=== PATIENT | male | born 1940 | race Caucasian/White ===

== ENCOUNTER 2016-12-20 08:44 | Day surgery (SDC) | payer MEDICARE, OTHER ==
[~2016-12-20 08:44] MED LIST: Lactated Ringers 1,000 ML IV SCH; Lidocaine 1%/Sod Bicarbonate in NS 8.4% 1 ML Syringe IV PRN; Sodium Chloride 0.9% 10 ML Syringe FLUSH PRN
[2016-12-20] MEDS ORDERED: Lidocaine 1% with EPINEPHrine 1:100,000 20 ML MDV ONE (08:59)
--- NOTE | 2016-12-20 09:26 | PCM.PREANE ---
Preanesthetic Assessment - ANESTHESIA/TRANSFUSION/FAMILY HX Anesthesia/Transfusion History: No Prior Transfusion(s), Prior Anesthesia (EGD' s and Colonoscopies, pt. 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: Reports: no symptoms (Bone pain from metastatic prostate cancer noted.), stroke/TIA (in 2014.), weakness Respiratory: Reports: no symptoms (quit smoking in 1965) Cardiovascular: Reports: blood pressure problem GI: Reports: no symptoms (GERD with hiatal hernia noted.), difficulty swallowing Other: Reports: easy bleeding (Patient on Xarelto for history of pulmonary emboli/DVT.), easy bruising - PHYSICAL ASSESSMENT HR: 64 O2 Sat by Pulse Oximetry: 98 RR: 16 BP: 174/82 Temp: 36.4 C Vital Signs: Last Vital Signs Temp 36.4 C 12/20/16 08:50 Pulse 64 12/20/16 08:50 Resp 16 12/20/16 08:50 BP 174/82 H 12/20/16 08:50 Pulse Ox 98 12/20/16 08:50 Height: 1.8 m Weight: 85.275 kg NPO Status Date: 12/19/16 NPO Status Time: 22:00 ASA Class: 3 Mental Status: alert & oriented x3 Airway Class: Mallampati = 2 Dentition: Reports: normal dentition, caries Thyro-Mental Finger Breadths: 3 Mouth Opening Finger Breadths: 3 ROM/Head Extension: full Respiratory Status: lungs clear to auscultation bilaterally Cardiovascular Status: regular rate & rhythm, normal S1, S2, no murmur, blood pressure WNL - LAB Values: Reviewed and noted. - IMAGING/EKG Impressions: EKG: SR rate=70, Probable left atrial enlargement - ALLERGIES Allergies/Adverse Reactions: Allergies Allergy/AdvReac Type Severity Reaction Status Date / Time metoprolol Allergy Anxiety Verified 12/17/16 10:04 rosuvastatin [From Crestor] Allergy Anxiety Verified 12/17/16 10:04 [id number] Reductase Allergy Leg Cramps Verified 12/17/16 10:04 Inhibitor - ANESTHESIA PLAN Preop Beta Nohemi: No Anesthesia Type Planned: MAC - ACKNOWLEDGEMENTS Pt an appropriate candidate for the planned anesthesia: Yes Alternatives and risks of anesthesia discussed w pt/guardian: Yes Pt/Guardian understands and agree with anesthesia plan: Yes PreAnesthesia Questionnaire - Past Health History Medical/Surgical History: Denies Medical/Surgical History HEENT History: Reports: None Cardiovascular History: Reports: High cholesterol, Hypertension Respiratory History: Reports: PE Gastrointestinal History: Reports: Hiatal hernia Other Gastrointestinal History: intestinal polyp, intestinal metaplasia of gastric mucosa, schatzkis ring Genitourinary History: Reports: Prostate disorder 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 Musculoskeletal History: Reports: Osteoarthritis, Other (see below) Other Musculoskeletal History: L shoulder osteoarthritis, restless leg syndrome Neurological History: Reports: TIA Psychiatric History: Reports: None Endocrine/Metabolic History: Reports: None Hematologic History: Reports: None Immunologic History: Reports: None Oncologic (Cancer) History: Reports: Prostate Dermatologic History: Reports: Melanoma - Past Surgical History GI Surgical History: Reports: Colonoscopy, EGD - SUBSTANCE USE Smoking Status *Q: Former Smoker Tobacco Use Within Last Twelve Months: No Second Hand Smoke Exposure: Yes Recreational Drug Use History: No - HOME MEDS Home Medications: Home Meds Pramipexole Di-HCl [Mirapex] 0.75 mg PO QPM 12/26/15 [History] Ranitidine [Zantac] 150 mg PO DAILY 12/26/15 [History] Rivaroxaban [Xarelto] 15 mg PO BID 21 Days 12/28/15 [Rx] traMADol HCl [Tramadol HCl] 50 mg PO Q6H PRN #15 tablet 12/28/15 [Rx] Losartan [Cozaar] 1 tab PO DAILY 12/10/16 [History] Sennosides/Docusate Sodium [Senna-Docusate Sodium] 1 tab PO DAILY 12/10/16 [ History] - CURRENT (IN HOUSE) MEDS Current Meds: Current Medications Lactated Ringer's (Ringers, Lactated) 1,000 mls @ 125 mls/hr IV ASDIRECTED CHRISTINA Stop: 12/20/16 23:00 Last Admin: 12/20/16 09:00 Dose: 125 mls/hr Lidocaine/Sodium Bicarbonate (Buffered Lidocaine 1% In Ns 8.4%) 0.25 ml IV ONETIME PRN PRN Reason: Prior to IV Start Stop: 12/20/16 18:00 Last Admin: 12/20/16 08:59 Dose: 0.25 ml Sodium Chloride (Saline Flush) 10 ml FLUSH ASDIRECTED PRN PRN Reason: Keep Vein Open Stop: 12/20/16 18:00 Discontinued Medications Lidocaine/Epinephrine (Xylocaine 1% With Epinephrine 1:100,000) Confirm Administered Dose 20 ml .ROUTE .[facility] Stop: 12/20/16 09:00
[2016-12-20] MEDS ORDERED: fentaNYL 100 MCG/2 ML SDV ONE (09:30)
[2016-12-20] MEDS ORDERED: Propofol 200 MG/20 ML SDV ONE (09:30)
[2016-12-20] MEDS ORDERED: Lidocaine 1% 2 ML SDV ONE (09:30)
--- NOTE | 2016-12-20 10:19 | PCM.OPNOTE ---
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
--- NOTE | 2016-12-20 10:29 | PCM48HPAN ---
Post Anesthesia Note - EVALUATION WITHIN 48HRS OF ANESTHETIC Vital Signs in Normal Range: Yes Patient Participated in Evaluation: Yes Respiratory Function Stable: Yes Airway Patent: Yes Cardiovascular Function Stable: Yes Hydration Status Stable: Yes Pain Control Satisfactory: Yes Nausea and Vomiting Control Satisfactory: Yes Mental Status Recovered: Yes
[2016-12-20 10:58] VITALS: BP 148/51
--- NOTE | 2016-12-21 08:20 | OR ---
DATE OF OPERATION: 12/20/2016 SURGEON: Jacob Chun MD PREOPERATIVE DIAGNOSIS: Melanoma in situ, left neck. POSTOPERATIVE DIAGNOSIS: Melanoma in situ, left neck. POPERAITON PERFORMED: Excision with 1 cm margin done under IV sedation local anesthetic. DESCRIPTION OF PROCEDURE: The patient was taken to the operating room, placed in a supine position, connected to monitoring equipment, given IV sedation. The patient placed with a roll under the left shoulder to expose the posterior portion of the left neck area in question have not been marked was identified and prepped with Betadine, draped off in a sterile fashion. Using a marking pen and a ruler a 1 cm margin around the lesion was then traced and the area was anesthetized with 1% Xylocaine and then excised. Excision was carried through the skin into the subcuticular tissue. The subcuticular tissue was then closed with interrupted of 3-0 Vicryl suture and the skin with interrupted 4-0 Prolene suture. Sterile dressing placed. The patient tolerated the procedure and sent to recovery room in a stable condition. ANESTHESIA: ESTIMATED BLOOD LOSS: MMODAL /[id number]
--- NOTE | 2016-12-21 09:01 | OR ---
DATE OF OPERATION: 12/20/2016 SURGEON: Jacob Chun MD ADDENDUM: ESTIMATED BLOOD LOSS: Zero mL. MMODAL /[id number]
== END 2016-12-20 11:25 | disposition home or self-care (01) ==
LOC: JD.SDS 08:44
PROVIDERS: ATTEND Surgery
PROC: 0HB4XZZ Excision of Neck Skin, External Approach (ICD-10-PCS; principal; 2016-12-20)
DX: D03.4 Melanoma in situ of scalp and neck (principal); I10 Essential (primary) hypertension; E78.5 Hyperlipidemia, unspecified; M19.012 Primary osteoarthritis, left shoulder; G25.81 Restless legs syndrome; Z85.46 Personal history of malignant neoplasm of prostate; Z85.830 Personal history of malignant neoplasm of bone; Z86.73 Personal history of transient ischemic attack (TIA), and cerebral infarction without residual deficits; Z87.891 Personal history of nicotine dependence; Z88.8 Allergy status to other drugs, medicaments and biological substances; Z79.01 Long term (current) use of anticoagulants; Z79.899 Other long term (current) drug therapy; Z98.890 Other specified postprocedural states
CPT/HCPCS: 11621; 88307; J3010; J7120; 00300; J2704

== ENCOUNTER 2017-05-11 18:34 | Inpatient (IN) | payer MEDICARE, OTHER ==
[2017-05-11] MEDS ORDERED: Sodium Chloride 0.9% 10 ML Syringe FLUSH PRN ×2 (19:00→19:07)
[2017-05-11] MEDS ORDERED: Iopamidol 755 Mg/ML 100 ML Bottle IVPUSH ONE (19:07)
[2017-05-11] MEDS ORDERED: Iopamidol 755 MG/ML 50 ML Bottle IVPUSH ONE (19:07)
--- NOTE | 2017-05-11 19:08 | EDM.PDOC ---
ED HPI GENERAL MEDICAL PROBLEM - General Chief Complaint: Abdominal Pain Stated Complaint: ABDOMINAL PAIN Time Seen by Provider: 05/11/17 18:45 Source of Information: Reports: Patient History Limitations: Reports: No Limitations - History of Present Illness INITIAL COMMENTS - FREE TEXT/NARRATIVE: Patient is a 76-year-old male who presents ED complaining of a tendon sensation to his abdomen. This starts at the epigastric region and radiates into his suprapubic region. Pain is described as being severe rated 10 out of 10, constant, with no waxing and waning, and no known precipitating factors or alleviating treatments. States this morning started developing this discomfort while going to work. Pain is mild at that time and progressively got worse to the course the day. States at approximately 2:00 he had to lay down at the work trailer due to the pain. On the way home he became dizzy and almost passed out. Again he describes as a sharp tearing sensation with no radiation. He's had one episode of dry heaving. He has no shortness of breath, pain with urination, chest pain, dysuria, fever/chills, blood in stools, and diarrhea. Last bowel movement was yesterday described as normal with no blood present. Denies any history of abdominal surgeries. No history of small bowel obstructions. He has a history of blood clots in his legs and also lungs. He is on is rolled to area in addition is a history of prostate cancer that has metastasized to his bones. He has received chemotherapy and radiation to his right hip. For additional medications see list. Abdominal Pain Score (Numeric/FACES): 8 - Related Data Allergies Allergy/AdvReac Type Severity Reaction Status Date / Time metoprolol Allergy Anxiety Verified 12/17/16 10:04 rosuvastatin [From Crestor] Allergy Anxiety Verified 12/17/16 10:04 Ikrpdet-Bzh-Adm Reductase Allergy Leg Cramps Verified 12/17/16 10:04 Inhibitor Home Meds: Home Meds Pramipexole Di-HCl [Mirapex] 0.75 mg PO QPM 12/26/15 [History] Ranitidine [Zantac] 150 mg PO DAILY 12/26/15 [History] Rivaroxaban [Xarelto] 15 mg PO BID 21 Days 12/28/15 [Rx] traMADol HCl [Tramadol HCl] 50 mg PO Q6H PRN #15 tablet 12/28/15 [Rx] Losartan [Cozaar] 1 tab PO DAILY 12/10/16 [History] Sennosides/Docusate Sodium [Senna-Docusate Sodium] 1 tab PO DAILY 12/10/16 [ History] Past Medical History - Past Health History Medical/Surgical History: Denies Medical/Surgical History HEENT History: Reports: None Cardiovascular History: Reports: High Cholesterol, Hypertension Respiratory History: Reports: PE Gastrointestinal History: Reports: Hiatal Hernia Other Gastrointestinal History: intestinal polyp, intestinal metaplasia of gastric mucosa, schatzkis ring Genitourinary History: Reports: Prostate Disorder 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 Musculoskeletal History: Reports: Osteoarthritis Other Musculoskeletal History: L shoulder osteoarthritis, restless leg syndrome Neurological History: Reports: TIA Psychiatric History: Reports: None Endocrine/Metabolic History: Reports: None Hematologic History: Reports: None Immunologic History: Reports: None Oncologic (Cancer) History: Reports: Prostate Dermatologic History: Reports: Melanoma - Past Surgical History Oncologic Surgical History: Reports: Other (See Below) Social & Family History - Family History Cardiac: Reports: Heart Failure, Pacemaker GI: Reports: None Psychiatric: Reports: None - Tobacco Use Smoking Status *Q: Former Smoker Years of Tobacco use: 5 Packs/Tins Daily: 1 Used Tobacco, but Quit: No Month Tobacco Last Used: 1972 Second Hand Smoke Exposure: Yes - Recreational Drug Use Recreational Drug Use: No Drug Use in Last 12 Months: No ED ROS GENERAL - Review of Systems Review Of Systems: ROS reveals no pertinent complaints other than HPI. ED EXAM, GI/ABD - Physical Exam Exam: See Below Exam Limited By: No Limitations General Appearance: Alert, WD/WN, Moderate Distress Eyes: Bilateral: Normal Appearance Ears: Hearing Grossly Normal Nose: Normal Inspection Throat/Mouth: Normal Voice, No Airway Compromise Head: Atraumatic, Normocephalic Neck: Normal Inspection, Supple Respiratory/Chest: No Respiratory Distress, Lungs Clear, Normal Breath Sounds, Chest Non-Tender Cardiovascular: Normal Peripheral Pulses, Regular Rate, Rhythm, No Edema, No JVD , No Murmur. No: JVD GI/Abdominal Exam: Soft, No Organomegaly, Distended (mild distention), Tender ( epigastric region radiating down to the suprapubic region. Minimal pain upon palpation. No pulsating mass. Pain is out of proportion to physical exam. He also has a history of blood clots to his legs and lungs and is on xarelto. ), Other (hypoactive) Back Exam: Normal Inspection Extremities: Normal Inspection, Normal Range of Motion, Non-Tender, No Pedal Edema, Normal Capillary Refill, Other (No extension of pain into his lower extremities. No sensory deficits noted. Pulses are intact distally.) Neurological: Alert, Oriented, Normal Cognition, No Motor/Sensory Deficits Psychiatric: Normal Affect Skin Exam: Warm, Dry, Intact, Normal Color, No Rash Course - Vital Signs Last Recorded V/S: Last Vital Signs Temp 98.5 F 05/11/17 18:50 Pulse 86 05/11/17 18:50 Resp 25 H 05/11/17 18:50 BP 145/86 H 05/11/17 18:50 Pulse Ox 100 05/11/17 18:50 - Orders/Labs/Meds Orders: Active Orders 24 hr Category Date Time Status EKG Documentation Completion [RC] STAT Care 05/11/17 18:58 Active Peripheral IV Care [RC] . DIRECTED Care 05/11/17 19:01 Active Chest Abdomen Pelvis w Cont [CT] Stat Exams 05/11/17 19:00 Taken UA W/MICROSCOPIC [URIN] Stat Lab 05/11/17 18:58 Uncollected Sodium Chloride 0.9% [Normal Saline] 1,000 ml Med 05/11/17 19:15 Active IV ASDIRECTED Sodium Chloride 0.9% [Normal Saline] 100 ml Med 05/11/17 19:15 Active IV ASDIRECTED Sodium Chloride 0.9% [Saline Flush] Med 05/11/17 19:00 Active 10 ml FLUSH ASDIRECTED PRN Sodium Chloride 0.9% [Saline Flush] Med 05/11/17 19:07 Active 10 ml FLUSH ONETIME PRN NG [Nasogastric Orogastric Tube Insertion] [OM.PC] Oth 05/11/17 19:31 Ordered Routine Peripheral IV Insertion Adult [OM.PC] Stat Oth 05/11/17 18:58 Ordered Medication Orders Sodium Chloride (Normal Saline) 1,000 mls @ 75 mls/hr IV ASDIRECTED CHRISTINA Last Admin: 05/11/17 19:40 Dose: 75 mls/hr Sodium Chloride (Normal Saline) 100 mls @ 65 mls/hr IV ASDIRECTED CHRISTINA Last Admin: 05/11/17 19:38 Dose: 65 mls/hr Sodium Chloride (Saline Flush) 10 ml FLUSH ASDIRECTED PRN PRN Reason: Keep Vein Open Last Admin: 05/11/17 19:57 Dose: 10 ml Sodium Chloride (Saline Flush) 10 ml FLUSH ONETIME PRN PRN Reason: IV FLUSH Last Admin: 05/11/17 19:39 Dose: 10 ml Labs: Laboratory Tests 05/11/17 05/11/17 05/11/17 Range/Units 19:00 19:00 19:00 WBC 9.49 H (4.23-9.07) K/mm3 RBC 5.04 (4.63-6.08) M/mm3 Hgb 15.1 (13.7-17.5) gm/L Hct 42.8 (40.1-51.0) % MCV 84.9 (79.0-92.2) fl MCH 30.0 (25.7-32.2) pg MCHC 35.3 (32.2-35.5) g/dl RDW Std Deviation 42.4 (35.1-43.9) fL Plt Count 252 (163-337) K/mm3 MPV 9.8 (9.4-12.3) fl Neut % (Auto) 70.1 H (34.0-67.9) % Lymph % (Auto) 17.5 L (21.8-53.1) % Coal % (Auto) 10.2 (5.3-12.2) % Eos % (Auto) 1.9 (0.8-7.0) Baso % (Auto) 0.1 (0.1-1.2) % Neut # (Auto) 6.65 H (1.78-5.38) K/mm3 Lymph # (Auto) 1.66 (1.32-3.57) K/mm3 Coal # (Auto) 0.97 H (0.30-0.82) K/mm3 Eos # (Auto) 0.18 (0.04-0.54) K/mm3 Baso # (Auto) 0.01 (0.01-0.08) K/mm3 PT 11.8 (8.0-13.0) SECONDS INR 1.08 APTT 30 (22-36) SECONDS Sodium 140 (136-145) mEq/L Potassium 3.4 L (3.5-5.1) mEq/L Chloride 99 (98-107) mEq/L Carbon Dioxide 25 (21-32) mEq/L Anion Gap 19.4 H (5-15) BUN 21 H (7-18) mg/dL Creatinine 1.3 (0.7-1.3) mg/dL Est Cr Clr Drug Dosing 45.31 mL/min Estimated GFR (MDRD) 53 (>60) mL/min BUN/Creatinine Ratio 16.2 (14-18) Glucose 168 H (83-115) mg/dL Calcium 10.2 H (8.5-10.1) mg/dL Total Bilirubin 0.9 (0.2-1.0) mg/dL AST 29 (15-37) U/L ALT 40 (16-63) U/L Alkaline Phosphatase 131 H (46-116) U/L Troponin I < 0.017 (0.00-0.056) ng/mL C-Reactive Protein 0.2 (<1.0) mg/dL Total Protein 7.9 (6.4-8.2) g/dl Albumin 4.4 (3.4-5.0) g/dl Globulin 3.5 gm/dL Albumin/Globulin Ratio 1.3 (1-2) Lipase 74 (73-393) U/L Meds: Medications Generic Name Dose Route Start Last Admin Trade Name Freq PRN Reason Stop Dose Admin Sodium Chloride 1,000 mls @ 75 mls/hr 05/11/17 19:15 05/11/17 19:40 Normal Saline IV 75 mls/hr ASDIRECTED CHRISTINA Administration Sodium Chloride 100 mls @ 65 mls/hr 05/11/17 19:15 05/11/17 19:38 Normal Saline IV 65 mls/hr ASDIRECTED CHRISTINA Administration Sodium Chloride 10 ml 05/11/17 19:00 05/11/17 19:57 Saline Flush FLUSH 10 ml ASDIRECTED PRN Administration Keep Vein Open Sodium Chloride 10 ml 05/11/17 19:07 05/11/17 19:39 Saline Flush FLUSH 10 ml ONETIME PRN Administration IV FLUSH Discontinued Medications Generic Name Dose Route Start Last Admin Trade Name Freq PRN Reason Stop Dose Admin Iopamidol 100 ml 05/11/17 19:07 05/11/17 19:38 Isovue-370 (76%) IVPUSH 05/11/17 19:08 100 ml ONETIME ONE Administration Iopamidol 50 ml 05/11/17 19:07 05/11/17 19:38 Isovue-370 (76%) IVPUSH 05/11/17 19:08 50 ml ONETIME ONE Administration Lorazepam 0.5 mg 05/11/17 19:53 05/11/17 19:57 Ativan IVPUSH 05/11/17 19:54 0.5 mg ONETIME ONE Administration Lorazepam 1 mg 05/11/17 21:05 05/11/17 21:09 Ativan IVPUSH 05/11/17 21:06 1 mg ONETIME ONE Administration - Re-Assessments/Exams Free Text/Narrative Re-Assessment/Exam: IV will be established with normal saline 75 mils per hour. Dilaudid 0.5 mg IVP will be administered for severe abdominal pain. Initial labs include CBC, chem 14, CRP, lipase, Coags, troponin, and UA. 1 view of the abdomen to be obtained unless CT is present. Once IV access is established she will undergo a chest abdomen pelvis CTA to evaluate for aorta abnormalities. Previous creatinine was 1.0 dated December 2015. Patient states he has no kidney problems. Will go ahead and obtain the CT without lab results. 05/11/17 19:31 CT of the abdomen initial interpretation reviewed with Dr. Hoffman indicates distal small bowel obstruction. Ordered NG tube to be placed with intermittent suction. Final interpretation of CT is still pending. 05/11/17 19:53 NG tube placed. Patient started vomiting up greenish fluid. Believe this is due to the patient gagging on the NG tube. Ordered Ativan 0.5 mg IV. 05/11/17 19:56 Labs reviewed: White blood cell count 9.49, hemoglobin 15.1, neutrophil percent is 70.1, neutrophil number is 6.65, coags are normal, sodium 140, potassium 3.4, AG 19.4, creatinine 1.3, glucose was 68, alk phosphatase 131 , troponin less than 0.017, lipase 74. 05/11/17 20:35 CT of the chest impression: No active disease in the chest. No acute aortic event. There are multiple osteosclerotic metastases. CT abdomen and pelvis impression: No acute aortic event. Distal small bowel obstruction possibly secondary to adhesions. Innumerable osteosclerotic bone metastases. 05/11/17 21:05 Patient requesting something for his restless leg syndrome. Ordered 1 mg Ativan. 05/11/17 21:[address] Mack. He has accepted the patient. Per [facility] patient meets inpatient status. [facility]. Reassessment of the patient does not reveal a surgical abdomen. He was much more relaxed after receiving the Ativan. On palpation minimal pain present. Pain was relieved with NG tube placement. Per patient he has not been passing gas. Last meal was this a.m. Departure - Departure Time of Disposition: 21:30 Disposition: Admitted As Inpatient 64 Condition: Fair Clinical Impression: Small bowel obstruction due to adhesions - Discharge Information - My Orders Last 24 Hours: My Active Orders 05/11/17 18:58 EKG Documentation Completion [RC] STAT UA W/MICROSCOPIC [URIN] Stat Peripheral IV Insertion Adult [OM.PC] Stat 05/11/17 19:00 Chest Abdomen Pelvis w Cont [CT] Stat Sodium Chloride 0.9% [Saline Flush] 10 ml FLUSH ASDIRECTED PRN 05/11/17 19:01 Peripheral IV Care [RC] . DIRECTED 05/11/17 19:07 Sodium Chloride 0.9% [Saline Flush] 10 ml FLUSH ONETIME PRN 05/11/17 19:15 Sodium Chloride 0.9% [Normal Saline] 1,000 ml IV ASDIRECTED Sodium Chloride 0.9% [Normal Saline] 100 ml IV ASDIRECTED 05/11/17 19:31 NG [Nasogastric Orogastric Tube Insertion] [OM.PC] Routine - Assessment/Plan Last 24 Hours: My Active Orders 05/11/17 18:58 EKG Documentation Completion [RC] STAT UA W/MICROSCOPIC [URIN] Stat Peripheral IV Insertion Adult [OM.PC] Stat 05/11/17 19:00 Chest Abdomen Pelvis w Cont [CT] Stat Sodium Chloride 0.9% [Saline Flush] 10 ml FLUSH ASDIRECTED PRN 05/11/17 19:01 Peripheral IV Care [RC] . DIRECTED 05/11/17 19:07 Sodium Chloride 0.9% [Saline Flush] 10 ml FLUSH ONETIME PRN 05/11/17 19:15 Sodium Chloride 0.9% [Normal Saline] 1,000 ml IV ASDIRECTED Sodium Chloride 0.9% [Normal Saline] 100 ml IV ASDIRECTED 05/11/17 19:31 NG [Nasogastric Orogastric Tube Insertion] [OM.PC] Routine
[2017-05-11] MEDS ORDERED: Sodium Chloride 0.9% 1,000 ML IV SCH (19:15)
[2017-05-11] MEDS ORDERED: Sodium Chloride 0.9% 100 ML IV SCH (19:15)
[2017-05-11] MEDS ORDERED: LORazepam 2 MG/ML MDV IVPUSH ONE ×2 (19:53→21:05)
--- NOTE | 2017-05-11 21:49 | PCM.HP ---
H&P History of Present Illness - General Date of Service: 05/11/17 Admit Problem/Dx: Small Bowel Obstruction Source of Information: Patient, Old Records, Provider, RN Notes Reviewed History Limitations: Reports: No Limitations - History of Present Illness Initial Comments - Free Text/Narative: This is a 76-year-old pleasant elderly white male with past medical history of hypertension, hyperlipidemia, history of hiatal hernia, intestinal polyp, intestinal metaplasia of gastric mucosa, Schatzki's ring, melanoma, osteoarthritis, restless leg syndrome, TIA, and history of PE/DVT who presents to the emergency department with complaints of abdominal pain that is constant in nature with no known precipitating factor. His pain is sharp and is localized in the epigastric area with radiation to suprapubic region. He rates his pain as severe 10 out of 10. He denies anything that would make his symptom better. His pain started this morning while on his way to work. By noon, his symptom has progressively gotten worse and became dizzy and experienced near syncope. His chief of complaint is associated with nausea but without vomiting. He denies any fever or chills. No shortness of breath, chest pain or dysuria. He denies any history of abdominal surgery. 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 His initial workup in the emergency department reveals a CBC remarkable for WBC of 9.49 and neutrophils of 70.1%. PT of 11.8, INR 1.08, and aPTT of 30. His chemistry is remarkable for K of 2.4, anion gap of 19.4, BUN of 21, glucose of 168, Calcium of 10.2, alkaline phosphatase of 131, Lipase of 74 and troponin is less than 0.017. His CT scan of his abdomen and pelvis reveal distal small bowel obstruction. Patient is being admitted for medical management of small bowel obstruction. He is full code. Abdominal Pain Score (Numeric/FACES): 8 - Related Data Allergies/Adverse Reactions: Allergies Allergy/AdvReac Type Severity Reaction Status Date / Time metoprolol AdvReac Anxiety Verified 05/12/17 07:03 rosuvastatin [From Crestor] AdvReac Anxiety Verified 05/12/17 07:03 [id number] Reductase AdvReac Leg Cramps Verified 05/12/17 07:03 Inhibitor Home Medications: Home Meds Ranitidine [Zantac] 150 mg PO DAILY 12/26/15 [History] Diltiazem [Cardizem CD] 180 mg PO DAILY 05/11/17 [History] Furosemide [Lasix] 40 mg PO DAILY 05/11/17 [History] Potassium Chloride [Klor-Con] 20 meq PO DAILY 05/11/17 [History] Rivaroxaban [Xarelto] 15 mg PO DAILY 05/11/17 [History] Losartan/Hydrochlorothiazide [Losartan-HCTZ 100-25 MG] 25 - 100 mg PO DAILY [History] Pramipexole Di-HCl [Mirapex] 0.75 mg PO BEDTIME 05/12/17 [History] traMADol [Ultram] 50 mg PO DAILY PRN 05/12/17 [History] Past Medical History - Past Health History Medical/Surgical History: Denies Medical/Surgical History HEENT History: Reports: None Cardiovascular History: Reports: High Cholesterol, Hypertension Respiratory History: Reports: PE Gastrointestinal History: Reports: Hiatal Hernia Other Gastrointestinal History: intestinal polyp, intestinal metaplasia of gastric mucosa, schatzkis ring Genitourinary History: Reports: Prostate Disorder POULTRY HELPER History: Reports: None Musculoskeletal History: Reports: Osteoarthritis Other Musculoskeletal History: L shoulder osteoarthritis, restless leg syndrome Neurological History: Reports: TIA Psychiatric History: Reports: None Endocrine/Metabolic History: Reports: None Hematologic History: Reports: None Immunologic History: Reports: None Oncologic (Cancer) History: Reports: Prostate Dermatologic History: Reports: Melanoma - Past Surgical History Oncologic Surgical History: Reports: Other (See Below) Social & Family History - Family History Cardiac: Reports: Heart Failure, Pacemaker GI: Reports: None Psychiatric: Reports: None - Tobacco Use Smoking Status *Q: Former Smoker Years of Tobacco use: 5 Packs/Tins Daily: 1 Used Tobacco, but Quit: No Month Tobacco Last Used: 1972 Second Hand Smoke Exposure: Yes - Recreational Drug Use Recreational Drug Use: No Drug Use in Last 12 Months: No H&P Review of Systems - Review of Systems: Review Of Systems: See Below General: Denies: Fever, Chills, Malaise, Weakness, Fatigue HEENT: Reports: No Symptoms Pulmonary: Denies: Shortness of Breath Cardiovascular: Reports: Other (Near Syncope). Denies: Chest Pain Gastrointestinal: Reports: Abdominal Pain. Denies: Nausea, Vomiting Genitourinary: Reports: No Symptoms Musculoskeletal: Reports: No Symptoms Skin: Denies: Cyanosis, Jaundice, Erythema Psychiatric: Denies: Depression, Anxiety, Hallucinations Neurological: Denies: Confusion, Dizziness, Difficulty Walking, Weakness, Gait Disturbance Hematologic/Lymphatic: Reports: No Symptoms Immunologic: Reports: No Symptoms Exam - Exam Exam: See Below - Vital Signs Vital Signs: Last Vital Signs Temp 36.9 C 05/11/17 18:50 Pulse 86 05/11/17 18:50 Resp 25 H 05/11/17 18:50 BP 145/86 H 05/11/17 18:50 Pulse Ox 100 05/11/17 18:50 Weight: 83.915 kg - Exam General: Alert, Oriented, Cooperative. No: Mild Distress HEENT: Conjunctiva Clear, EACs Clear, EOMI, Hearing Intact, Mucosa Moist & [place] , Nares Patent, Normal Nasal Septum, Posterior Pharynx Clear, Pupils Equal, Pupils Reactive Neck: Supple, Trachea Midline, +2 Carotid Pulse wo Bruit Lungs: Clear to Auscultation, Normal Respiratory Effort Cardiovascular: Regular Rate, Regular Rhythm GI/Abdominal Exam: Normal Bowel Sounds, Soft, No Organomegaly, No Distention, No Abnormal Bruit, Tender (epigastric with radiation down to his pubic region). No: Rebound (Male) Exam: Deferred Rectal (Males) Exam: Deferred Back Exam: Normal Inspection, Decreased Range of Motion Extremities: Normal Inspection, Normal Range of Motion, Non-Tender, No Pedal Edema, Normal Capillary Refill Skin: Warm, Dry, Intact Neuro Extensive - Mental Status: Oriented x3, Normal Cognition, Memory Intact Neuro Extensive - Motor, Sensory, Reflexes: CN II-XII Intact, Normal Gait Psychiatric: Alert, Normal Affect, Normal Mood - Patient Data Lab Results Last 24 hrs: Laboratory Results - last 24 hr 05/11/17 05/11/17 05/11/17 Range/Units 19:00 19:00 19:00 WBC 9.49 H (4.23-9.07) K/mm3 RBC 5.04 (4.63-6.08) M/mm3 Hgb 15.1 (13.7-17.5) gm/L Hct 42.8 (40.1-51.0) % MCV 84.9 (79.0-92.2) fl MCH 30.0 (25.7-32.2) pg MCHC 35.3 (32.2-35.5) g/dl RDW Std Deviation 42.4 (35.1-43.9) fL Plt Count 252 (163-337) K/mm3 MPV 9.8 (9.4-12.3) fl Neut % (Auto) 70.1 H (34.0-67.9) % Lymph % (Auto) 17.5 L (21.8-53.1) % Dickinson % (Auto) 10.2 (5.3-12.2) % Eos % (Auto) 1.9 (0.8-7.0) Baso % (Auto) 0.1 (0.1-1.2) % Neut # (Auto) 6.65 H (1.78-5.38) K/mm3 Lymph # (Auto) 1.66 (1.32-3.57) K/mm3 Dickinson # (Auto) 0.97 H (0.30-0.82) K/mm3 Eos # (Auto) 0.18 (0.04-0.54) K/mm3 Baso # (Auto) 0.01 (0.01-0.08) K/mm3 PT 11.8 (8.0-13.0) SECONDS INR 1.08 APTT 30 (22-36) SECONDS Sodium 140 (136-145) mEq/L Potassium 3.4 L (3.5-5.1) mEq/L Chloride 99 (98-107) mEq/L Carbon Dioxide 25 (21-32) mEq/L Anion Gap 19.4 H (5-15) BUN 21 H (7-18) mg/dL Creatinine 1.3 (0.7-1.3) mg/dL Est Cr Clr Drug Dosing 45.31 mL/min Estimated GFR (MDRD) 53 (>60) mL/min BUN/Creatinine Ratio 16.2 (14-18) Glucose 168 H (83-115) mg/dL Calcium 10.2 H (8.5-10.1) mg/dL Total Bilirubin 0.9 (0.2-1.0) mg/dL AST 29 (15-37) U/L ALT 40 (16-63) U/L Alkaline Phosphatase 131 H (46-116) U/L Troponin I < 0.017 (0.00-0.056) ng/mL C-Reactive Protein 0.2 (<1.0) mg/dL Total Protein 7.9 (6.4-8.2) g/dl Albumin 4.4 (3.4-5.0) g/dl Globulin 3.5 gm/dL Albumin/Globulin Ratio 1.3 (1-2) Lipase 74 (73-393) U/L Result Diagrams: 05/11/17 19:00 05/11/17 19:00 EKG INTERPRETATION EKG Date: 05/11/17 Time: 07:02 Rhythm: Other (Sinus Rhythm) *Q Meaningful Use (ADM) - VTE *Q VTE Criteria *Q: - Stroke *Q Stroke Criteria *Q: - AMI *Q AMI Criteria *Q: Problem List Initiated/Reviewed/Updated: Yes Orders Last 24hrs: Active Orders 24 hr Category Date Time Status EKG Documentation Completion [RC] STAT Care 05/11/17 18:58 Active Peripheral IV Care [RC] . DIRECTED Care 05/11/17 19:01 Active Chest Abdomen Pelvis w Cont [CT] Stat Exams 05/11/17 19:00 Taken UA W/MICROSCOPIC [URIN] Stat Lab 05/11/17 18:58 Uncollected Sodium Chloride 0.9% [Normal Saline] 1,000 ml Med 05/11/17 19:15 Active IV ASDIRECTED Sodium Chloride 0.9% [Normal Saline] 100 ml Med 05/11/17 19:15 Active IV ASDIRECTED Sodium Chloride 0.9% [Saline Flush] Med 05/11/17 19:00 Active 10 ml FLUSH ASDIRECTED PRN Sodium Chloride 0.9% [Saline Flush] Med 05/11/17 19:07 Active 10 ml FLUSH ONETIME PRN NG [Nasogastric Orogastric Tube Insertion] [OM.PC] Oth 05/11/17 19:31 Ordered Routine Peripheral IV Insertion Adult [OM.PC] Stat Oth 05/11/17 18:58 Ordered Medication Orders Sodium Chloride (Normal Saline) 1,000 mls @ 75 mls/hr IV ASDIRECTED CHRISTINA Last Admin: 05/11/17 19:40 Dose: 75 mls/hr Sodium Chloride (Normal Saline) 100 mls @ 65 mls/hr IV ASDIRECTED CHRISTINA Last Admin: 05/11/17 19:38 Dose: 65 mls/hr Sodium Chloride (Saline Flush) 10 ml FLUSH ASDIRECTED PRN PRN Reason: Keep Vein Open Last Admin: 05/11/17 19:57 Dose: 10 ml Sodium Chloride (Saline Flush) 10 ml FLUSH ONETIME PRN PRN Reason: IV FLUSH Last Admin: 05/11/17 19:39 Dose: 10 ml Assessment/Plan Comment:: Assessment/Plan: Acute: SBO - CT Scan: Distal Small Bowel Obstruction - No Hx/o GI Surgeries - Last BM yesterday, He is not passing gas - Supportive Care - NGT placed in ED - Prokinetic Agent (cautioned family, might worsen his restless leg) - Ambulated TID as tolerated - Repeat Abn/Pelvis CTA Mild Hypokalemia - K 3.4 likley from diuretic +/- GI Loss - Will replete for now - Pharmacy to replete and monitor starting tomorrow 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 - CA 10.2 and Alk Phos of 131 Chronic: HTN HLD OA Hiatial Hernia RLS TIA Hx/o Intestinal Metaplasia of gastric mucosa Schatzkis Ring Hx/o PE/DVT on Xarelto 12/26/2015 (over a year now) Hx/o Colon and Prostate CA Hx/o Melanoma Plan: Admit to Med-Surg NPO except ice chips/sips of water/home meds w/ clamped NGT per protocol Routine AM Labs Resume Home Medications Consider GS consult for worsening of symptoms Fall Precautions PT/OT consult SW/CM for d/c planning Code status: 1 Additional orders as above
[2017-05-11] MEDS ORDERED: Acetaminophen 325 MG Tab PO PRN (21:51)
[2017-05-11] MEDS ORDERED: Acetaminophen/HYDROcodone 325-5 MG Tab PO PRN (21:51)
[2017-05-11] MEDS ORDERED: hydrALAZINE 20 MG/ML SDV IVPUSH PRN (21:51)
[2017-05-11] MEDS ORDERED: Albuterol/Ipratropium 3.0-0.5 MG/3 ML Neb Soln NEB PRN (21:51)
[2017-05-11] MEDS ORDERED: Ondansetron 4 MG/2 ML SDV IV PRN (21:51)
[2017-05-11] MEDS ORDERED: Polyethylene Glycol 3350 Powder 17 GM Packet PO PRN (21:51)
[2017-05-11] MEDS ORDERED: Temazepam 15 MG Cap PO PRN (21:51)
[2017-05-11] MEDS ORDERED: HYDROmorphone 1 MG/ML Syringe IVPUSH PRN (21:51)
[2017-05-11] MEDS ORDERED: Promethazine 12.5 MG in Sodium Chloride 0.9% 50 ML IV PRN (21:51)
[2017-05-11] MEDS ORDERED: Docusate Sodium 100 MG Cap PO PRN (21:51)
[2017-05-11] MEDS ORDERED: Bisacodyl 5 MG Tab PO PRN (21:51)
[2017-05-11] MEDS ORDERED: Famotidine 20 MG/2 ML SDV IVPUSH ONE (21:53)
[2017-05-11] MEDS ORDERED: Diltiazem 25 MG/5 ML SDV IVPUSH PRN (21:53)
[2017-05-11] MEDS ORDERED: Metoclopramide 10 MG/2 ML SDV IVPUSH SCH (22:00)
[2017-05-11] MEDS ORDERED: LORazepam 2 MG/ML MDV IVPUSH PRN (23:25)
[2017-05-12] MEDS ORDERED: Famotidine 20 MG/2 ML SDV IVPUSH ONE (00:12)
[2017-05-12] MEDS: Dextrose 5%-0.9% NaCl 1,000 ML IV SCH ×3 (00:27→21:03)
[2017-05-12] MEDS ORDERED: PRAMIPEXOLE 0.25 MG PO ONE (00:30)
[2017-05-12] MEDS: Potassium Chloride 20 MEQ Tab.ER PO SCH ×3 (00:36→14:29)
[2017-05-12] MEDS ORDERED: rOPINIRole 0.25 MG Tab PO ONE (02:20)
[2017-05-12] MEDS ORDERED: cloNIDine 0.1 MG Tab PO ONE (02:43)
[2017-05-12] MEDS ORDERED: ClonazePAM 0.5 MG Tab PO ONE (02:44)
[2017-05-12] MEDS ORDERED: Magnesium Sulfate/Water 2 GM in Premix Bag 1 BAG IV ONE (02:54)
[2017-05-12] MEDS ORDERED: LORazepam 2 MG/ML MDV IVPUSH ONE (03:08)
--- NOTE | 2017-05-12 08:49 | CT ---
CT chest Technique: Multiple axial sections through the chest were obtained. Intravenous contrast was utilized. Comparison: Previous CT chest exam of 12/26/15. Findings: Pulmonary arteries show normal enhancement. No larger pulmonary emboli are seen. Aorta shows mild ectasia within the ascending aorta measuring 3.7 cm. Descending aorta measures approximately 2.7 cm. No aortic dissection is seen. Mild coronary artery calcification is seen. Mediastinum and hilar regions show no adenopathy or mass. No pericardial thickening is seen. No axillary adenopathy is appreciated. Mild emphysematous changes are present. No acute infiltrates are seen within the chest. No pleural effusion is seen. Bone window settings were reviewed which show scattered sclerotic change within the thoracic spine as well as within the sternum and ribs compatible with osteoblastic metastasis. Severe degenerative change noted within the left glenohumeral joint. Impression: 1. Multiple osteoblastic metastasis. 2. Other incidental findings. Nothing acute is identified on CT study of the chest. Diagnostic code #9 I agree with preliminary report issued by [employer] ([email or web address] report finalized on 05/11/17, 8:57 PM Central Time) CT abdomen and pelvis Technique: Multiple axial sections were obtained from above the dome of the diaphragm inferiorly through the pubic symphysis. Intravenous contrast was utilized. No oral contrast has been given. Comparison: Previous CT abdomen and pelvis exam of 10/19/12. Findings: Liver shows no focal parenchymal abnormality. Spleen appears within normal limits. Adrenal glands show no nodule. Pancreas is within normal limits. Gallbladder shows no calcified gallstones. Both kidneys show symmetric contrast enhancement without hydronephrosis. Several minimal cortical cysts are felt to be present. Aorta shows atherosclerotic change without aneurysm. No dissection is seen. No pelvic mass or adenopathy is identified. Radiation implant seeds are seen within the prostate gland. Mildly dilated and fluid-filled small bowel is seen. Findings are suspicious for distal small bowel obstruction. Etiology is not identified and findings most likely due to nonvisualized adhesion. No free fluid or inflammatory changes seen. Innumerable osteoblastic lesions are seen within the spine, hips and pelvis. Impression: 1. Multiple osteoblastic metastasis within the bony structures. 2. Fluid-filled and dilated small bowel. These findings are suspicious for mild distal small bowel obstruction most likely from adhesion. 3. Previous radiation therapy to the prostate gland. 4. Other incidental findings. Diagnostic code #9 I agree with preliminary report issued by [employer] ([email or web address] report finalized on 05/11/17, 8:57 PM Central Time)
[2017-05-12] MEDS ORDERED: Non-Formulary Medication 1 Each (Ranitidine 150 MG) PO SCH (09:00)
[2017-05-12] MEDS ORDERED: Famotidine 20 MG/2 ML SDV IVPUSH SCH (09:00)
[2017-05-12] MEDS ORDERED: Rivaroxaban 10 MG Tab PO SCH (09:00)
--- NOTE | 2017-05-12 11:18 | PCM.PN ---
- General Info Date of Service: 05/12/17 Admission Dx/Problem (Free Text): Small Bowel Obstruction Subjective Update: Follow Up Functional Status: Reports: Pain Controlled, Urinating. Denies: Tolerating Diet , Ambulating - Review of Systems Systems Review Comment:: He had a tough night due his restless leg. However he had 2 bowel movements last night. He is exhausted and started to calm down by 6 this morning. No other acute issues reported by his morning nurse. ROS is unobtainable at this time. - Patient Data Vitals - most recent: Last Vital Signs Temp 37.0 C 05/12/17 08:29 Pulse 61 05/12/17 08:29 Resp 16 05/12/17 08:29 BP 109/56 L 05/12/17 08:29 Pulse Ox 93 L 05/12/17 08:29 Weight - most recent: 83.325 kg I&O - last 24 hours: Intake & Output 05/11/17 05/12/17 05/12/17 22:59 06:59 14:59 Intake Total 325 Balance 325 Lab Results last 24 hrs: Laboratory Results - last 24 hr 05/12/17 05/12/17 Range/Units 00:25 02:04 POC Glucose 146 H (83-110) mg/dL Urine Color Yellow (Yellow) Urine Appearance Clear (Clear) Urine pH 7.0 (5.0-8.0) Ur Specific [place] 1.015 (1.005-1.030) Urine Protein 1+ H (Negative) Urine Glucose (UA) Negative (Negative) Urine Ketones Negative (Negative) Urine Occult Blood Trace-intact H (Negative) Urine Nitrite Negative (Negative) Urine Bilirubin Negative (Negative) Urine Urobilinogen 1.0 (0.2-1.0) Ur Leukocyte Esterase Negative (Negative) Urine RBC 0-5 (0-5) /hpf Urine WBC 0-5 (0-5) /hpf Ur Epithelial Cells Not seen (0-5) /hpf Urine Bacteria Not seen (FEW) /hpf Hyaline Casts 0-5 (0-5) /lpf Urine Mucus Not seen (FEW) /hpf Med Orders - Current: Current Medications Acetaminophen (Tylenol) 650 mg PO Q4H PRN PRN Reason: Pain (Mild 1-3)/fever Hydrocodone Bitart/Acetaminophen ([place] 325-5 Mg) 1 tab PO Q4H PRN PRN Reason: Pain (moderate 4-6) Last Admin: 05/12/17 05:20 Dose: 1 tab Albuterol/Ipratropium (Duoneb 3.0-0.5 Mg/3 Ml) 3 ml NEB Q4H PRN PRN Reason: Shortness Of Breath/wheezing Bisacodyl (Dulcolax) 5 mg PO DAILY PRN PRN Reason: Constipation Diltiazem HCl (Diltiazem) 10 mg IVPUSH Q4H PRN PRN Reason: Tachycardia Diltiazem HCl (Cardizem Cd) 180 mg PO DAILY [facility] Docusate Sodium (Colace) 100 mg PO BID PRN PRN Reason: Constipation Famotidine (Pepcid) 20 mg IVPUSH BID CHRISTINA Furosemide (Lasix) 40 mg PO DAILY [facility]STINA Hydralazine HCl (Apresoline) 20 mg IVPUSH Q4H PRN PRN Reason: Hypertension Hydromorphone HCl (Dilaudid) 1 mg IVPUSH Q4H PRN PRN Reason: Pain (severe 7-10) Last Admin: 05/12/17 06:09 Dose: 1 mg Dextrose/Sodium Chloride (Dextrose 5%-Normal Saline) 1,000 mls @ 100 mls/hr IV ASDIRECTED CHRISTINA Last Admin: 05/12/17 10:24 Dose: 100 mls/hr Lorazepam (Ativan) 1 mg IVPUSH Q4H PRN PRN Reason: Restless legs Last Admin: 05/12/17 01:17 Dose: 1 mg Losartan Potassium (Cozaar) 100 mg PO DAILY [facility] Magnesium Sulfate (Pharmacy To Dose - Magnesium Replacement) 0 dose .XX ASDIRECTED PRN PRN Reason: RX TO MONITOR MAG LEVELS Ondansetron HCl (Zofran) 4 mg IV Q6H PRN PRN Reason: Nausea/Vomiting Polyethylene Glycol (Miralax) 17 gm PO DAILY PRN PRN Reason: Constipation Potassium Chloride (Klor-Con M20) 20 meq PO DAILY [facility] Potassium Chloride (Pharmacy To Dose - Potassium Replacement) 0 dose .XX ASDIRECTED PRN PRN Reason: RX TO MONITOR K LEVELS Pramipexole Dihydrochloride (Mirapex) 0.75 mg PO BEDTIME [facility] Rivaroxaban (Xarelto) 15 mg PO DAILY [facility] Senna/Docusate Sodium (Senna Plus) 1 tab PO BID PRN PRN Reason: Constipation Sodium Chloride (Saline Flush) 10 ml FLUSH ASDIRECTED PRN PRN Reason: Keep Vein Open Last Admin: 05/11/17 19:57 Dose: 10 ml Temazepam (Restoril) 15 mg PO BEDTIME PRN PRN Reason: Sleep Discontinued Medications Clonazepam (Klonopin) 0.5 mg PO ONETIME ONE Stop: 05/12/17 02:45 Last Admin: 05/12/17 02:55 Dose: 0.5 mg Clonidine HCl (Catapres) 0.1 mg PO ONETIME ONE Stop: 05/12/17 02:44 Last Admin: 05/12/17 02:55 Dose: 0.1 mg Famotidine (Pepcid) 20 mg IVPUSH ONETIME ONE Stop: 05/11/17 21:54 Last Admin: 05/12/17 00:13 Dose: Not Given Famotidine (Pepcid) 20 mg IVPUSH ONETIME ONE Stop: 05/12/17 00:13 Last Admin: 05/12/17 00:29 Dose: 20 mg Sodium Chloride (Normal Saline) 1,000 mls @ 75 mls/hr IV ASDIRECTED [facility] Last Admin: 05/11/17 19:40 Dose: 75 mls/hr Sodium Chloride (Normal Saline) 100 mls @ 65 mls/hr IV ASDIRECTED [facility] Last Admin: 05/11/17 19:38 Dose: 65 mls/hr Promethazine HCl 12.5 mg/ (Sodium Chloride) 50.5 mls @ 100 mls/hr IV Q6H PRN PRN Reason: Nausea/Vomiting Magnesium Sulfate 2 gm/ Premix 50 mls @ 25 mls/hr IV ONETIME ONE Stop: 05/12/17 04:53 Last Admin: 05/12/17 03:00 Dose: 25 mls/hr Iopamidol (Isovue-370 (76%)) 100 ml IVPUSH ONETIME ONE Stop: 05/11/17 19:08 Last Admin: 05/11/17 19:38 Dose: 100 ml Iopamidol (Isovue-370 (76%)) 50 ml IVPUSH ONETIME ONE Stop: 05/11/17 19:08 Last Admin: 05/11/17 19:38 Dose: 50 ml Lorazepam (Ativan) 0.5 mg IVPUSH ONETIME ONE Stop: 05/11/17 19:54 Last Admin: 05/11/17 19:57 Dose: 0.5 mg Lorazepam (Ativan) 1 mg IVPUSH ONETIME ONE Stop: 05/11/17 21:06 Last Admin: 05/11/17 21:09 Dose: 1 mg Lorazepam (Ativan) 0.5 mg IVPUSH ONETIME ONE Stop: 05/12/17 03:09 Last Admin: 05/12/17 03:15 Dose: 0.5 mg Metoclopramide HCl (Reglan) 10 mg IVPUSH Q6H [facility] Last Admin: 05/12/17 00:28 Dose: 10 mg Non-Formulary Medication (Ranitidine) 150 mg PO DAILY [facility] Potassium Chloride (Klor-Con M20) 20 meq PO Q3H [facility] Stop: 05/12/17 02:01 Last Admin: 05/12/17 02:46 Dose: Not Given Pramipexole Dihydrochloride (Mirapex) 0.75 mg PO ONETIME ONE Stop: 05/12/17 00:31 Last Admin: 05/12/17 00:37 Dose: 0.75 mg Rivaroxaban (Xarelto) 15 mg PO BID [facility] Ropinirole HCl (Requip) 0.25 mg PO ONETIME ONE Stop: 05/12/17 02:21 Last Admin: 05/12/17 02:48 Dose: 0.25 mg Sodium Chloride (Saline Flush) 10 ml FLUSH ONETIME PRN PRN Reason: IV FLUSH Last Admin: 05/11/17 19:39 Dose: 10 ml - Exam General: other (sleeping at this moment) Lungs: Normal Respiratory Effort, Decreased Breath Sounds Cardiovascular: Regular Rate, Regular Rhythm GI/Abdominal Exam: Normal Bowel Sounds, Soft, No Abnormal Bruit, Distended. No : Guarding, Rigid, Rebound, Tender (Male) Exam: Deferred Back Exam: Normal Inspection, Decreased Range of Motion Extremities: Normal Inspection, Normal Range of Motion, Non-Tender, No Pedal Edema, Normal Capillary Refill Peripheral Pulses: 2+: Dorsalis Pedis (L), Dorsalis Pedis (R) Skin: warm, dry, intact Physical Findings Comments:: Limited physical exam, patient is currently asleep. - Problem List Review Problem List Initiated/Reviewed/Updated: Yes - My Orders Last 24 Hours: My Active Orders 05/11/17 23:25 LORazepam [Ativan] 1 mg IVPUSH Q4H PRN 05/12/17 02:47 Patient Status [ADT] Routine 05/12/17 09:00 Rivaroxaban [Xarelto] 15 mg PO DAILY 05/12/17 21:00 Pramipexole [Mirapex] 0.75 mg PO BEDTIME - Plan Plan:: Assessment/Plan: Acute: SBO - Improving, had 2 bowel movements last night - CT Scan: Distal Small Bowel Obstruction - No Hx/o GI Surgeries - Last BM yesterday, He is not passing gas - Supportive Care - NGT placed in ED - Prokinetic Agent (cautioned family, might worsen his restless leg) - Ambulated TID as tolerated - Repeat Abn/Pelvis CTA Mild Hypokalemia - K 3.4 likley from diuretic +/- GI Loss - Will replete for now - Pharmacy to replete and monitor starting tomorrow 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 - CA 10.2 and Alk Phos of 131 Acute on Chronic RLS - Had reglan last night and moe reversed his mirapex - He had gotten ropironole, clonidine and klonopin on top of ativan overnight Chronic: HTN HLD OA Hiatial Hernia RLS TIA Hx/o Intestinal Metaplasia of gastric mucosa Schatzkis Ring Hx/o PE/DVT on Xarelto 12/26/2015 (over a year now) Hx/o Colon and Prostate CA Hx/o Melanoma Plan: Patient is fairly stable-guarded NPO except ice chips/sips of water/home meds w/ clamped NGT per protocol Repeat labs this afternoon Consider GS consult for worsening of symptoms PT/OT consult: hold off for now SW/CM for d/c planning Code status: 1 Additional orders as above Patient will rest for the rest of the day and will re-examine him when he wakes up sometime this afternoon. His family member, present of bed at bedside, was updated about his clinical progress and issues that occurred overnight.
[2017-05-12] MEDS ORDERED: traMADol 50 MG Tab PO PRN (13:51)
[2017-05-12] MEDS: Rivaroxaban 10 MG Tab PO SCH (14:26)
[2017-05-12] MEDS: Furosemide 40 MG Tab PO SCH (14:28)
[2017-05-12] MEDS: Diltiazem 180 MG Cap.CD PO SCH (14:28)
[2017-05-12] MEDS: Losartan 100 MG Tab PO SCH (14:29)
[2017-05-12] MEDS: PRAMIPEXOLE 0.25 MG PO SCH (19:19)
[2017-05-12] MEDS ORDERED: Sodium Chloride 0.9% 50 ML ONE (20:57)
[2017-05-12] MEDS ORDERED: PRAMIPEXOLE 0.25 MG PO SCH (21:00)
[2017-05-12] MEDS: Famotidine 20 MG Tab PO SCH (21:03)
[2017-05-13] MEDS: Dextrose 5%-0.9% NaCl 1,000 ML IV SCH (07:46)
[2017-05-13] MEDS: Rivaroxaban 10 MG Tab PO SCH (08:31)
[2017-05-13] MEDS: Hydrochlorothiazide 25 MG Tab PO SCH (08:31)
[2017-05-13] MEDS: Diltiazem 180 MG Cap.CD PO SCH (08:32)
[2017-05-13] MEDS: Furosemide 40 MG Tab PO SCH (08:32)
[2017-05-13] MEDS: Potassium Chloride 20 MEQ Tab.ER PO SCH ×3 (08:33→11:20)
[2017-05-13] MEDS: Losartan 100 MG Tab PO SCH (08:34)
[2017-05-13] MEDS: Magnesium Oxide 400 MG Tab PO SCH ×2 (08:34→11:20)
[2017-05-13] MEDS: Famotidine 20 MG Tab PO SCH ×2 (08:35→21:36)
[2017-05-13] MEDS ORDERED: RIVAROXABAN 15 MG PO SCH (09:00)
--- NOTE | 2017-05-13 11:01 | CR ---
Abdomen: Supine view of the abdomen was obtained. Comparison: Previous abdominal and pelvic CT study of 05/11/17, previous abdominal x-ray of 10/19/12. Sclerotic areas are scattered within the pelvis and within both hips as well as within the ribs compatible with osteoblastic metastasis. Degenerative change is noted within the spine. Bowel gas pattern is normal. Radiation implant seeds are seen within the prostate gland. Calcification is seen within the left side of the abdomen which appear stable from prior x-ray. Impression: 1. Osteoblastic metastasis again seen. 2. Other incidental findings as described above. Diagnostic code #3s
--- NOTE | 2017-05-13 11:34 | PCM.PN ---
- General Info Date of Service: 05/13/17 Functional Status: Reports: Pain Controlled, Tolerating Diet (full liquids), Ambulating - Review of Systems General: Reports: No Symptoms HEENT: Reports: No Symptoms Pulmonary: Reports: No Symptoms Cardiovascular: Reports: No Symptoms Gastrointestinal: Reports: No Symptoms Genitourinary: Reports: No Symptoms Musculoskeletal: Reports: No Symptoms Skin: Reports: No Symptoms Neurological: Reports: No Symptoms Psychiatric: Reports: No Symptoms - Patient Data Vitals - most recent: Last Vital Signs Temp 37.1 C 05/13/17 08:34 Pulse 60 05/13/17 08:34 Resp 16 05/13/17 08:34 BP 143/69 H 05/13/17 08:34 Pulse Ox 97 05/13/17 08:34 Weight - most recent: 83.461 kg I&O - last 24 hours: Intake & Output 05/12/17 05/13/17 05/13/17 22:59 06:59 14:59 Intake Total 1720 2987 360 Balance 1720 2987 360 Lab Results last 24 hrs: Laboratory Results - last 24 hr 05/12/17 05/12/17 05/13/17 Range/Units 15:10 15:10 05:45 WBC 5.74 5.26 (4.23-9.07) K/mm3 RBC 4.27 L 3.91 L (4.63-6.08) M/mm3 Hgb 12.9 L 11.7 L (13.7-17.5) gm/L Hct 37.2 L 34.4 L (40.1-51.0) % MCV 87.1 88.0 (79.0-92.2) fl MCH 30.2 29.9 (25.7-32.2) pg MCHC 34.7 34.0 (32.2-35.5) g/dl RDW Std Deviation 43.2 42.3 (35.1-43.9) fL Plt Count 193 183 (163-337) K/mm3 MPV 9.5 10.3 (9.4-12.3) fl Neut % (Auto) 61.6 62.5 (34.0-67.9) % Lymph % (Auto) 22.5 21.9 (21.8-53.1) % [place] % (Auto) 12.4 H 12.9 H (5.3-12.2) % Eos % (Auto) 3.1 2.7 (0.8-7.0) Baso % (Auto) 0.2 0.0 L (0.1-1.2) % Neut # (Auto) 3.54 3.29 (1.78-5.38) K/mm3 Lymph # (Auto) 1.29 L 1.15 L (1.32-3.57) K/mm3 [place] # (Auto) 0.71 0.68 (0.30-0.82) K/mm3 Eos # (Auto) 0.18 0.14 (0.04-0.54) K/mm3 Baso # (Auto) 0.01 0.00 L (0.01-0.08) K/mm3 Sodium 141 (136-145) mEq/L Potassium 3.6 (3.5-5.1) mEq/L Chloride 106 (98-107) mEq/L Carbon Dioxide 28 (21-32) mEq/L Anion Gap 10.6 (5-15) BUN 20 H (7-18) mg/dL Creatinine 1.1 (0.7-1.3) mg/dL Est Cr Clr Drug Dosing 51.74 mL/min Estimated GFR (MDRD) > 60 (>60) mL/min BUN/Creatinine Ratio 18.2 H (14-18) Glucose 123 H (83-115) mg/dL Calcium 8.3 L (8.5-10.1) mg/dL Magnesium 2.0 (1.8-2.4) mg/dl C-Reactive Protein < 0.2 (<1.0) mg/dL 05/13/17 Range/Units 05:45 WBC (4.23-9.07) K/mm3 RBC (4.63-6.08) M/mm3 Hgb (13.7-17.5) gm/L Hct (40.1-51.0) % MCV (79.0-92.2) fl MCH (25.7-32.2) pg MCHC (32.2-35.5) g/dl RDW Std Deviation (35.1-43.9) fL Plt Count (163-337) K/mm3 MPV (9.4-12.3) fl Neut % (Auto) (34.0-67.9) % Lymph % (Auto) (21.8-53.1) % [place] % (Auto) (5.3-12.2) % Eos % (Auto) (0.8-7.0) Baso % (Auto) (0.1-1.2) % Neut # (Auto) (1.78-5.38) K/mm3 Lymph # (Auto) (1.32-3.57) K/mm3 [place] # (Auto) (0.30-0.82) K/mm3 Eos # (Auto) (0.04-0.54) K/mm3 Baso # (Auto) (0.01-0.08) K/mm3 Sodium 140 (136-145) mEq/L Potassium 3.3 L (3.5-5.1) mEq/L Chloride 106 (98-107) mEq/L Carbon Dioxide 27 (21-32) mEq/L Anion Gap 10.3 (5-15) BUN 13 (7-18) mg/dL Creatinine 1.1 (0.7-1.3) mg/dL Est Cr Clr Drug Dosing 51.74 mL/min Estimated GFR (MDRD) > 60 (>60) mL/min BUN/Creatinine Ratio 11.8 L (14-18) Glucose 122 H (83-115) mg/dL Calcium 8.3 L (8.5-10.1) mg/dL Magnesium 1.7 L (1.8-2.4) mg/dl C-Reactive Protein 0.5 (<1.0) mg/dL Med Orders - Current: Current Medications Acetaminophen (Tylenol) 650 mg PO Q4H PRN PRN Reason: Pain (Mild 1-3)/fever Last Admin: 05/13/17 03:19 Dose: 650 mg Hydrocodone Bitart/Acetaminophen ([place] 325-5 Mg) 1 tab PO Q4H PRN PRN Reason: Pain (moderate 4-6) Last Admin: 05/12/17 05:20 Dose: 1 tab Albuterol/Ipratropium (Duoneb 3.0-0.5 Mg/3 Ml) 3 ml NEB Q4H PRN PRN Reason: Shortness Of Breath/wheezing Bisacodyl (Dulcolax) 5 mg PO DAILY PRN PRN Reason: Constipation Diltiazem HCl (Diltiazem) 10 mg IVPUSH Q4H PRN PRN Reason: Tachycardia Diltiazem HCl (Cardizem Cd) 180 mg PO DAILY [facility] Last Admin: 05/13/17 08:32 Dose: 180 mg Docusate Sodium (Colace) 100 mg PO BID PRN PRN Reason: Constipation Famotidine (Pepcid) 20 mg PO BID [facility] Last Admin: 05/13/17 08:35 Dose: 20 mg Furosemide (Lasix) 40 mg PO DAILY [facility] Last Admin: 05/13/17 08:32 Dose: 40 mg Hydralazine HCl (Apresoline) 20 mg IVPUSH Q4H PRN PRN Reason: Hypertension Hydrochlorothiazide (Hydrochlorothiazide) 25 mg PO DAILY [facility] Last Admin: 05/13/17 08:31 Dose: 25 mg Hydromorphone HCl (Dilaudid) 1 mg IVPUSH Q4H PRN PRN Reason: Pain (severe 7-10) Last Admin: 05/12/17 06:09 Dose: 1 mg Dextrose/Sodium Chloride (Dextrose 5%-Normal Saline) 1,000 mls @ 100 mls/hr IV ASDIRECTED [facility] Last Admin: 05/13/17 07:46 Dose: 100 mls/hr Lorazepam (Ativan) 1 mg IVPUSH Q4H PRN PRN Reason: Restless legs Last Admin: 05/12/17 01:17 Dose: 1 mg Losartan Potassium (Cozaar) 100 mg PO DAILY [facility] Last Admin: 05/13/17 08:34 Dose: 100 mg Magnesium Oxide (Magnesium Oxide) 400 mg PO Q4H [facility] Stop: 05/13/17 12:01 Last Admin: 05/13/17 11:20 Dose: 400 mg Magnesium Sulfate (Pharmacy To Dose - Magnesium Replacement) 0 dose .XX ASDIRECTED PRN PRN Reason: RX TO MONITOR MAG LEVELS Ondansetron HCl (Zofran) 4 mg IV Q6H PRN PRN Reason: Nausea/Vomiting Polyethylene Glycol (Miralax) 17 gm PO DAILY PRN PRN Reason: Constipation Potassium Chloride (Klor-Con M20) 20 meq PO DAILY [facility] Last Admin: 05/13/17 08:33 Dose: 20 meq Potassium Chloride (Pharmacy To Dose - Potassium Replacement) 0 dose .XX ASDIRECTED PRN PRN Reason: RX TO MONITOR K LEVELS Potassium Chloride (Klor-Con M20) 40 meq PO Q4H [facility] Stop: 05/13/17 12:01 Last Admin: 05/13/17 11:20 Dose: 40 meq Pramipexole Dihydrochloride (Mirapex) 0.75 mg PO 1700 [facility] Last Admin: 05/12/17 19:19 Dose: 0.75 mg Rivaroxaban (Xarelto) 15 mg PO DAILY [facility] Last Admin: 05/13/17 08:31 Dose: 15 mg Senna/Docusate Sodium (Senna Plus) 1 tab PO BID PRN PRN Reason: Constipation Sodium Chloride (Saline Flush) 10 ml FLUSH ASDIRECTED PRN PRN Reason: Keep Vein Open Last Admin: 05/11/17 19:57 Dose: 10 ml Temazepam (Restoril) 15 mg PO BEDTIME PRN PRN Reason: Sleep Tramadol HCl (Ultram) 50 mg PO DAILY PRN PRN Reason: Moderate Pain Discontinued Medications Clonazepam (Klonopin) 0.5 mg PO ONETIME ONE Stop: 05/12/17 02:45 Last Admin: 05/12/17 02:55 Dose: 0.5 mg Clonidine HCl (Catapres) 0.1 mg PO ONETIME ONE Stop: 05/12/17 02:44 Last Admin: 05/12/17 02:55 Dose: 0.1 mg Famotidine (Pepcid) 20 mg IVPUSH BID [facility] Last Admin: 05/12/17 14:29 Dose: 20 mg Famotidine (Pepcid) 20 mg IVPUSH ONETIME ONE Stop: 05/11/17 21:54 Last Admin: 05/12/17 00:13 Dose: Not Given Famotidine (Pepcid) 20 mg IVPUSH ONETIME ONE Stop: 05/12/17 00:13 Last Admin: 05/12/17 00:29 Dose: 20 mg Sodium Chloride (Normal Saline) 1,000 mls @ 75 mls/hr IV ASDIRECTED [facility] Last Admin: 05/11/17 19:40 Dose: 75 mls/hr Sodium Chloride (Normal Saline) 100 mls @ 65 mls/hr IV ASDIRECTED [facility] Last Admin: 05/11/17 19:38 Dose: 65 mls/hr Promethazine HCl 12.5 mg/ (Sodium Chloride) 50.5 mls @ 100 mls/hr IV Q6H PRN PRN Reason: Nausea/Vomiting Magnesium Sulfate 2 gm/ Premix 50 mls @ 25 mls/hr IV ONETIME ONE Stop: 05/12/17 04:53 Last Admin: 05/12/17 03:00 Dose: 25 mls/hr Sodium Chloride (Normal Saline) Confirm Administered Dose 50 mls @ as directed .ROUTE .STK-MED ONE Stop: 05/12/17 20:58 Last Admin: 05/12/17 21:03 Dose: Not Given Iopamidol (Isovue-370 (76%)) 100 ml IVPUSH ONETIME ONE Stop: 05/11/17 19:08 Last Admin: 05/11/17 19:38 Dose: 100 ml Iopamidol (Isovue-370 (76%)) 50 ml IVPUSH ONETIME ONE Stop: 05/11/17 19:08 Last Admin: 05/11/17 19:38 Dose: 50 ml Lorazepam (Ativan) 0.5 mg IVPUSH ONETIME ONE Stop: 05/11/17 19:54 Last Admin: 05/11/17 19:57 Dose: 0.5 mg Lorazepam (Ativan) 1 mg IVPUSH ONETIME ONE Stop: 05/11/17 21:06 Last Admin: 05/11/17 21:09 Dose: 1 mg Lorazepam (Ativan) 0.5 mg IVPUSH ONETIME ONE Stop: 05/12/17 03:09 Last Admin: 05/12/17 03:15 Dose: 0.5 mg Metoclopramide HCl (Reglan) 10 mg IVPUSH Q6H [facility] Last Admin: 05/12/17 00:28 Dose: 10 mg Non-Formulary Medication (Ranitidine) 150 mg PO DAILY [facility] Non-Formulary Medication (Rivaroxaban) 15 mg PO DAILY [facility] Potassium Chloride (Klor-Con M20) 20 meq PO Q3H [facility] Stop: 05/12/17 02:01 Last Admin: 05/12/17 02:46 Dose: Not Given Pramipexole Dihydrochloride (Mirapex) 0.75 mg PO BEDTIME [facility] Pramipexole Dihydrochloride (Mirapex) 0.75 mg PO ONETIME ONE Stop: 05/12/17 00:31 Last Admin: 05/12/17 00:37 Dose: 0.75 mg Rivaroxaban (Xarelto) 15 mg PO BID [facility] Ropinirole HCl (Requip) 0.25 mg PO ONETIME ONE Stop: 05/12/17 02:21 Last Admin: 05/12/17 02:48 Dose: 0.25 mg Sodium Chloride (Saline Flush) 10 ml FLUSH ONETIME PRN PRN Reason: IV FLUSH Last Admin: 05/11/17 19:39 Dose: 10 ml - Exam Quality Assessment: DVT prophylaxis General: alert, oriented, cooperative, no acute distress HEENT: Pupils equal, Pupils reactive, EOMI Neck: supple, trachea midline, no JVD Lungs: Normal Respiratory Effort, Decreased Breath Sounds Cardiovascular: Regular Rate, Regular Rhythm GI/Abdominal Exam: Normal Bowel Sounds, Soft, Non-Tender, No Organomegaly (Male) Exam: Deferred Back Exam: Normal Inspection Extremities: Normal Inspection Skin: warm, dry Neurological: no new focal deficit Psy/Mental Status: alert, normal affect, normal mood - Problem List & Annotations (1) Small bowel obstruction due to adhesions SNOMED Code(s): 262240890 Code(s): K56.5 - INTESTINAL ADHESIONS W OBST (POSTPROCEDURAL) (POSTINFECTION ) Status: Acute Current Visit: Yes - Problem List Review Problem List Initiated/Reviewed/Updated: Yes - Plan Plan:: Assessment/Plan: Acute: SBO - CT Scan: Distal Small Bowel Obstruction - No Hx/o GI Surgeries - Supportive Care - NGT placed in ED; removed has tolerated full liquids for breakfast - Prokinetic Agent (cautioned family, might worsen his restless leg) - Ambulated TID as tolerated - Repeat Abn/Pelvis CTA Mild Hypokalemia - K 3.4 likley from diuretic +/- GI Loss - Will replete for now - Pharmacy to replete and monitor starting tomorrow 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 - CA 10.2 and Alk Phos of 131 Acute on Chronic RLS - Had reglan last night and moe reversed his mirapex - He had gotten ropironole, clonidine and klonopin on top of ativan overnight Chronic: HTN HLD OA Hiatial Hernia RLS TIA Hx/o Intestinal Metaplasia of gastric mucosa Schatzkis Ring 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
[2017-05-13] MEDS: PRAMIPEXOLE 0.25 MG PO SCH (16:56)
[2017-05-14] MEDS: Diltiazem 180 MG Cap.CD PO SCH (08:16)
[2017-05-14] MEDS: Losartan 100 MG Tab PO SCH (08:16)
[2017-05-14] MEDS: Hydrochlorothiazide 25 MG Tab PO SCH (08:16)
[2017-05-14] MEDS: Potassium Chloride 20 MEQ Tab.ER PO SCH (08:17)
[2017-05-14] MEDS: Famotidine 20 MG Tab PO SCH (08:17)
[2017-05-14] MEDS: Furosemide 40 MG Tab PO SCH (08:17)
[2017-05-14] MEDS: Rivaroxaban 10 MG Tab PO SCH (08:17)
[2017-05-14 08:18] VITALS: BP 114/50
--- NOTE | 2017-05-14 10:30 | PCM.DCSUM1 ---
Discharge Summary - Hospital Course Free Text/Narrative:: This is a 76-year-old pleasant elderly white male with past medical history of hypertension, hyperlipidemia, history of hiatal hernia, intestinal polyp, intestinal metaplasia of gastric mucosa, Schatzki's ring, melanoma, osteoarthritis, restless leg syndrome, TIA, and history of PE/DVT who presents to the emergency department with complaints of abdominal pain that is constant in nature with no known precipitating factor. His pain is sharp and is localized in the epigastric area with radiation to suprapubic region. He rates his pain as severe 10 out of 10. He denies anything that would make his symptom better. His pain started this morning while on his way to work. By noon, his symptom has progressively gotten worse and became dizzy and experienced near syncope. His chief of complaint was associated with nausea but without vomiting. He denies any fever or chills. No shortness of breath, chest pain or dysuria. He denies any history of abdominal surgery. 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 CT scan of his abdomen and pelvis reveal distal small bowel obstruction. Patient was admitted for medical management of small bowel obstruction. Primary Dx Distal Small Bowel Obstruction Mild Hypokalemia Multiple Osteoblastic Metastasis - Hx/o Colon/Prostate Cancer Acute on Chronic RLS Activity As tolerated Diet Resume usual diet Medication See list Follow Up As scheduled, see DC Plan. - Discharge Data Discharge Date: 05/14/17 Discharge Disposition: Home, Self-Care 01 Condition: Good - Discharge Diagnosis/Problem(s) (1) Small bowel obstruction due to adhesions SNOMED Code(s): 217511544 ICD Code: K56.5 - INTESTINAL ADHESIONS W OBST (POSTPROCEDURAL) (POSTINFECTION ) Status: Acute - Discharge Plan Home Medications: Home Meds Ranitidine [Zantac] 150 mg PO DAILY 12/26/15 [History] Diltiazem [Cardizem CD] 180 mg PO DAILY 05/11/17 [History] Furosemide [Lasix] 40 mg PO DAILY 05/11/17 [History] Potassium Chloride [Klor-Con] 20 meq PO DAILY 05/11/17 [History] Rivaroxaban [Xarelto] 15 mg PO DAILY 05/11/17 [History] Losartan/Hydrochlorothiazide [Losartan-HCTZ 100-25 MG] 25 - 100 mg PO DAILY [History] Pramipexole Di-HCl [Mirapex] 0.75 mg PO BEDTIME 05/12/17 [History] traMADol [Ultram] 50 mg PO DAILY PRN 05/12/17 [History] Patient Handouts: Small Bowel Obstruction, [id number] Referrals: Priya Horan MD [Primary Care Provider] - (Please call [facility] at [phone] on Tuesday to make own follow-up appointment for one week.) - General Info Functional Status: Reports: Pain Controlled, Tolerating Diet, Ambulating, Urinating - Review of Systems General: Reports: No Symptoms HEENT: Reports: No Symptoms Pulmonary: Reports: No Symptoms Cardiovascular: Reports: No Symptoms Gastrointestinal: Reports: No Symptoms Genitourinary: Reports: No Symptoms Musculoskeletal: Reports: No Symptoms Skin: Reports: No Symptoms Neurological: Reports: No Symptoms Psychiatric: Reports: No Symptoms - Patient Data Vitals - Most Recent: Last Vital Signs Temp 37.1 C 05/14/17 08:26 Pulse 56 L 05/14/17 08:26 Resp 12 05/14/17 08:26 BP 114/50 L 05/14/17 08:26 Pulse Ox 99 05/14/17 08:26 Weight - Most Recent: 82.508 kg I&O - Last 24 hours: Intake & Output 05/13/17 05/14/17 05/14/17 22:59 06:59 14:59 Intake Total 2967 600 Balance 2967 600 Lab Results - Last 24 hrs: Laboratory Results - last 24 hr 05/14/17 05/14/17 Range/Units 05:58 05:58 WBC 4.16 L (4.23-9.07) K/mm3 RBC 4.46 L (4.63-6.08) M/mm3 Hgb 13.4 L (13.7-17.5) gm/L Hct 39.0 L (40.1-51.0) % MCV 87.4 (79.0-92.2) fl MCH 30.0 (25.7-32.2) pg MCHC 34.4 (32.2-35.5) g/dl RDW Std Deviation 43.1 (35.1-43.9) fL Plt Count 210 (163-337) K/mm3 MPV 10.2 (9.4-12.3) fl Neut % (Auto) 57.1 (34.0-67.9) % Lymph % (Auto) 26.4 (21.8-53.1) % [place] % (Auto) 12.5 H (5.3-12.2) % Eos % (Auto) 3.6 (0.8-7.0) Baso % (Auto) 0.2 (0.1-1.2) % Neut # (Auto) 2.37 (1.78-5.38) K/mm3 Lymph # (Auto) 1.10 L (1.32-3.57) K/mm3 [place] # (Auto) 0.52 (0.30-0.82) K/mm3 Eos # (Auto) 0.15 (0.04-0.54) K/mm3 Baso # (Auto) 0.01 (0.01-0.08) K/mm3 Sodium 138 (136-145) mEq/L Potassium 4.0 (3.5-5.1) mEq/L Chloride 104 (98-107) mEq/L Carbon Dioxide 25 (21-32) mEq/L Anion Gap 13.0 (5-15) BUN 11 (7-18) mg/dL Creatinine 1.0 (0.7-1.3) mg/dL Est Cr Clr Drug Dosing 56.92 mL/min Estimated GFR (MDRD) > 60 (>60) mL/min BUN/Creatinine Ratio 11.0 L (14-18) Glucose 119 H (83-115) mg/dL Calcium 9.0 (8.5-10.1) mg/dL Magnesium 1.8 (1.8-2.4) mg/dl C-Reactive Protein 0.7 (<1.0) mg/dL Med Orders - Current: Current Medications Acetaminophen (Tylenol) 650 mg PO Q4H PRN PRN Reason: Pain (Mild 1-3)/fever Last Admin: 05/13/17 03:19 Dose: 650 mg Hydrocodone Bitart/Acetaminophen ([place] 325-5 Mg) 1 tab PO Q4H PRN PRN Reason: Pain (moderate 4-6) Last Admin: 05/12/17 05:20 Dose: 1 tab Albuterol/Ipratropium (Duoneb 3.0-0.5 Mg/3 Ml) 3 ml NEB Q4H PRN PRN Reason: Shortness Of Breath/wheezing Bisacodyl (Dulcolax) 5 mg PO DAILY PRN PRN Reason: Constipation Diltiazem HCl (Diltiazem) 10 mg IVPUSH Q4H PRN PRN Reason: Tachycardia Diltiazem HCl (Cardizem Cd) 180 mg PO DAILY [facility] Last Admin: 05/14/17 08:16 Dose: 180 mg Docusate Sodium (Colace) 100 mg PO BID PRN PRN Reason: Constipation Famotidine (Pepcid) 20 mg PO BID [facility] Last Admin: 05/14/17 08:17 Dose: 20 mg Furosemide (Lasix) 40 mg PO DAILY [facility] Last Admin: 05/14/17 08:17 Dose: 40 mg Hydralazine HCl (Apresoline) 20 mg IVPUSH Q4H PRN PRN Reason: Hypertension Hydrochlorothiazide (Hydrochlorothiazide) 25 mg PO DAILY [facility] Last Admin: 05/14/17 08:16 Dose: 25 mg Hydromorphone HCl (Dilaudid) 1 mg IVPUSH Q4H PRN PRN Reason: Pain (severe 7-10) Last Admin: 05/12/17 06:09 Dose: 1 mg Lorazepam (Ativan) 1 mg IVPUSH Q4H PRN PRN Reason: Restless legs Last Admin: 05/12/17 01:17 Dose: 1 mg Losartan Potassium (Cozaar) 100 mg PO DAILY [facility] Last Admin: 05/14/17 08:16 Dose: 100 mg Ondansetron HCl (Zofran) 4 mg IV Q6H PRN PRN Reason: Nausea/Vomiting Polyethylene Glycol (Miralax) 17 gm PO DAILY PRN PRN Reason: Constipation Potassium Chloride (Klor-Con M20) 20 meq PO DAILY [facility] Last Admin: 05/14/17 08:17 Dose: 20 meq Pramipexole Dihydrochloride (Mirapex) 0.75 mg PO 1700 [facility] Last Admin: 05/13/17 16:56 Dose: 0.75 mg Rivaroxaban (Xarelto) 15 mg PO DAILY [facility] Last Admin: 05/14/17 08:17 Dose: 15 mg Senna/Docusate Sodium (Senna Plus) 1 tab PO BID PRN PRN Reason: Constipation Sodium Chloride (Saline Flush) 10 ml FLUSH ASDIRECTED PRN PRN Reason: Keep Vein Open Last Admin: 05/11/17 19:57 Dose: 10 ml Temazepam (Restoril) 15 mg PO BEDTIME PRN PRN Reason: Sleep Tramadol HCl (Ultram) 50 mg PO DAILY PRN PRN Reason: Moderate Pain Discontinued Medications Clonazepam (Klonopin) 0.5 mg PO ONETIME ONE Stop: 05/12/17 02:45 Last Admin: 05/12/17 02:55 Dose: 0.5 mg Clonidine HCl (Catapres) 0.1 mg PO ONETIME ONE Stop: 05/12/17 02:44 Last Admin: 05/12/17 02:55 Dose: 0.1 mg Famotidine (Pepcid) 20 mg IVPUSH BID [facility] Last Admin: 05/12/17 14:29 Dose: 20 mg Famotidine (Pepcid) 20 mg IVPUSH ONETIME ONE Stop: 05/11/17 21:54 Last Admin: 05/12/17 00:13 Dose: Not Given Famotidine (Pepcid) 20 mg IVPUSH ONETIME ONE Stop: 05/12/17 00:13 Last Admin: 05/12/17 00:29 Dose: 20 mg Sodium Chloride (Normal Saline) 1,000 mls @ 75 mls/hr IV ASDIRECTED [facility] Last Admin: 05/11/17 19:40 Dose: 75 mls/hr Sodium Chloride (Normal Saline) 100 mls @ [facility] Admin: 05/11/17 19:38 Dose: 65 mls/hr Dextrose/Sodium Chloride (Dextrose 5%-Normal Saline) 1,000 mls @ 100 mls/hr IV ASDIRECTED [facility] Last Admin: 05/13/17 07:46 Dose: 100 mls/hr Promethazine HCl 12.5 mg/ (Sodium Chloride) 50.5 mls @ 100 mls/hr IV Q6H PRN PRN Reason: Nausea/Vomiting Magnesium Sulfate 2 gm/ Premix 50 mls @ 25 mls/hr IV ONETIME ONE Stop: 05/12/17 04:53 Last Admin: 05/12/17 03:00 Dose: 25 mls/hr Sodium Chloride (Normal Saline) Confirm Administered Dose 50 mls @ as directed .ROUTE .STK-MED ONE Stop: 05/12/17 20:58 Last Admin: 05/12/17 21:03 Dose: Not Given Iopamidol (Isovue-370 (76%)) 100 ml IVPUSH ONETIME ONE Stop: 05/11/17 19:08 Last Admin: 05/11/17 19:38 Dose: 100 ml Iopamidol (Isovue-370 (76%)) 50 ml IVPUSH ONETIME ONE Stop: 05/11/17 19:08 Last Admin: 05/11/17 19:38 Dose: 50 ml Lorazepam (Ativan) 0.5 mg IVPUSH ONETIME ONE Stop: 05/11/17 19:54 Last Admin: 05/11/17 19:57 Dose: 0.5 mg Lorazepam (Ativan) 1 mg IVPUSH ONETIME ONE Stop: 05/11/17 21:06 Last Admin: 05/11/17 21:09 Dose: 1 mg Lorazepam (Ativan) 0.5 mg IVPUSH ONETIME ONE Stop: 05/12/17 03:09 Last Admin: 05/12/17 03:15 Dose: 0.5 mg Magnesium Oxide (Magnesium Oxide) 400 mg PO Q4H [facility] Stop: 05/13/17 12:01 Last Admin: 05/13/17 11:20 Dose: 400 mg Magnesium Sulfate (Pharmacy To Dose - Magnesium Replacement) 0 dose .XX ASDIRECTED PRN PRN Reason: RX TO MONITOR MAG LEVELS Metoclopramide HCl (Reglan) 10 mg IVPUSH Q6H [facility] Last Admin: 05/12/17 00:28 Dose: 10 mg Non-Formulary Medication (Ranitidine) 150 mg PO DAILY [facility] Non-Formulary Medication (Rivaroxaban) 15 mg PO DAILY [facility] Potassium Chloride (Pharmacy To Dose - Potassium Replacement) 0 dose .XX ASDIRECTED PRN PRN Reason: RX TO MONITOR K LEVELS Potassium Chloride (Klor-Con M20) 20 meq PO Q3H [facility] Stop: 05/12/17 02:01 Last Admin: 05/12/17 02:46 Dose: Not Given Potassium Chloride (Klor-Con M20) 40 meq PO Q4H [facility] Stop: 05/13/17 12:01 Last Admin: 05/13/17 11:20 Dose: 40 meq Pramipexole Dihydrochloride (Mirapex) 0.75 mg PO BEDTIME [facility] Pramipexole Dihydrochloride (Mirapex) 0.75 mg PO ONETIME ONE Stop: 05/12/17 00:31 Last Admin: 05/12/17 00:37 Dose: 0.75 mg Rivaroxaban (Xarelto) 15 mg PO BID [facility] Ropinirole HCl (Requip) 0.25 mg PO ONETIME ONE Stop: 05/12/17 02:21 Last Admin: 05/12/17 02:48 Dose: 0.25 mg Sodium Chloride (Saline Flush) 10 ml FLUSH ONETIME PRN PRN Reason: IV FLUSH Last Admin: 05/11/17 19:39 Dose: 10 ml - Exam Quality Assessment: Reports: DVT Prophylaxis General: Reports: Alert, Oriented, Cooperative, No Acute Distress HEENT: Reports: Pupils Equal, Pupils Reactive, EOMI Neck: Reports: Supple, Trachea Midline, No JVD Lungs: Reports: Normal Respiratory Effort Cardiovascular: Reports: Regular Rate, Regular Rhythm GI/Abdominal Exam: Normal Bowel Sounds, Soft, Non-Tender, No Organomegaly, No Distention (Male) Exam: Deferred Rectal (Males) Exam: Deferred Back Exam: Reports: Normal Inspection Extremities: Normal Inspection, No Pedal Edema, Normal Capillary Refill Skin: Reports: Warm Neurological: Reports: No New Focal Deficit, Normal Gait, Normal Speech Psy/Mental Status: Reports: Alert, Normal Affect, Normal Mood *Q Meaningful Use (DIS) - VTE *Q VTE Criteria *Q: - Stroke *Q Stroke Criteria *Q: - AMI *Q AMI Criteria *Q:
== END 2017-05-14 10:50 | disposition home or self-care (01) | DRG 389 ==
LOC: JD.ED 18:34 → JD.MS 22:52
PROVIDERS: ADMIT Internal Medicine; ATTEND Internal Medicine
DX: K56.5 Intestinal adhesions [bands] with obstruction (postinfection) (principal); I10 Essential (primary) hypertension; E78.00 Pure hypercholesterolemia, unspecified; C79.51 Secondary malignant neoplasm of bone; E87.6 Hypokalemia; E78.5 Hyperlipidemia, unspecified; K44.9 Diaphragmatic hernia without obstruction or gangrene; M19.90 Unspecified osteoarthritis, unspecified site; G25.81 Restless legs syndrome; Z86.711 Personal history of pulmonary embolism; C61 Malignant neoplasm of prostate; Z87.891 Personal history of nicotine dependence; Z86.718 Personal history of other venous thrombosis and embolism; Z86.73 Personal history of transient ischemic attack (TIA), and cerebral infarction without residual deficits; Z79.01 Long term (current) use of anticoagulants; Z79.899 Other long term (current) drug therapy; Z88.8 Allergy status to other drugs, medicaments and biological substances; Z85.038 Personal history of other malignant neoplasm of large intestine; Z85.46 Personal history of malignant neoplasm of prostate
CPT/HCPCS: 36415; 71260; 74177; 80053; 83605; 83690; 83735; 84484; 85025; 85610; 85730; 86140; 93005; J2060 ×2; J7030; J7040; J7050 ×2; Q9967 ×2; 74000; 74000-26; 80048; 81001; 82962; 96361; 96374; 96376; 97161-GP; 97165-GO; 99284; 99285-25; A9270-GY; J1170; J2765; J3475; J7042

== ENCOUNTER 2017-07-04 04:06 | Emergency (ER) | payer MEDICARE, OTHER ==
--- NOTE | 2017-07-04 04:20 | EDM.PDOC ---
ED HPI GENERAL MEDICAL PROBLEM - General Chief Complaint: Abdominal Pain Stated Complaint: constipation poss blockage Time Seen by Provider: 07/04/17 04:23 Source of Information: Reports: Patient History Limitations: Reports: No Limitations - History of Present Illness INITIAL COMMENTS - FREE TEXT/NARRATIVE: 77-year-old male presents to the ED with diffuse abdominal cramping pain almost all infraumbilical. Cramping is been not that it causes him to vomit. He estimates he's vomited about 6 times in the last 24 hours. He feels somewhat better after he had set in emesis. He ate some dinner but he believes he vomited back up about 2 hours later yesterday. He just vomited before coming into the emergency room. Emesis has been bilious and dark. Ports she's not passing any flatus per rectum for the last several hours. No bowel movement for 4 days. History of constipation. No previous abdominal surgeries. Had a similar type problem in April of this year where he was severely constipated. Started MiraLAX powder a few days ago but has not made his bowels work. Tries to drink plenty of water. Unable to sleep this evening due to the cramping nature of the pain. Current pain is listed as 6 out of 10. Onset: Gradual (Abdominal pain with nausea and vomiting for 2 days.), Other (No bowel movement for 4 days.) Onset Date: 07/02/17 Duration: Hour(s):, Getting Worse, Waxing/Waning Location: Reports: Abdomen Quality: Reports: Ache, Sharp, Stabbing Severity: Moderate (Current pain is listed as 8 out of 10.) Improves with: Reports: None Worsens with: Reports: Eating Context: Denies: Activity, Exercise, Lifting, Sick Contact, Trauma, Other Associated Symptoms: Reports: Diaphoresis, Fever/Chills (Associate with the vomiting.), Loss of Appetite, Malaise, Nausea/Vomiting (Intractable.), Weakness. Denies: Confusion, Chest Pain, Cough, cough w sputum, Headaches ( Chills with vomiting.), Rash, Seizure, Shortness of Breath, Syncope Treatments PRODUCT MARKETING ANALYST: Reports: Other (see below) (9) Abdomen Pain Score (Numeric/FACES): 3 - Related Data Allergies Allergy/AdvReac Type Severity Reaction Status Date / Time metoprolol AdvReac Anxiety Verified 05/12/17 07:03 rosuvastatin [From Crestor] AdvReac Anxiety Verified 05/12/17 07:03 Zikemqc-Kxt-Kib Reductase AdvReac Leg Cramps Verified 05/12/17 07:03 Inhibitor Home Meds: Home Meds Ranitidine [Zantac] 150 mg PO DAILY 12/26/15 [History] Diltiazem [Cardizem CD] 180 mg PO DAILY 05/11/17 [History] Furosemide [Lasix] 40 mg PO DAILY 05/11/17 [History] Potassium Chloride [Klor-Con] 20 meq PO DAILY 05/11/17 [History] Rivaroxaban [Xarelto] 15 mg PO DAILY 05/11/17 [History] Losartan/Hydrochlorothiazide [Losartan-HCTZ 100-25 MG] 25 - 100 mg PO DAILY [History] Pramipexole Di-HCl [Mirapex] 0.75 mg PO BEDTIME 05/12/17 [History] traMADol [Ultram] 50 mg PO DAILY PRN 05/12/17 [History] Ondansetron [Zofran ODT] 4 mg PO Q6H #8 tab.dis 07/04/17 [Rx] Past Medical History - Past Health History Medical/Surgical History: Denies Medical/Surgical History HEENT History: Reports: None Cardiovascular History: Reports: High Cholesterol, Hypertension Respiratory History: Reports: PE Other Respiratory History: Lung and bilateral leg blood clot in 2016-- on Xarrelto for this reason. Gastrointestinal History: Reports: Chronic Constipation, Hiatal Hernia Other Gastrointestinal History: intestinal polyp, intestinal metaplasia of gastric mucosa, schatzkis ring Genitourinary History: Reports: BPH, Prostate Disorder (Cancer of the prostate with previous cesium seed implantation. 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.) BIOLOGICAL TECHNICIAN History: Reports: None Musculoskeletal History: Reports: Osteoarthritis Other Musculoskeletal History: L shoulder osteoarthritis, restless leg syndrome Neurological History: Reports: TIA Psychiatric History: Reports: None Endocrine/Metabolic History: Reports: None Hematologic History: Reports: None Immunologic History: Reports: None Oncologic (Cancer) History: Reports: Prostate Dermatologic History: Reports: Melanoma Other Dermatologic History: Melanoma-neck - Infectious Disease History Infectious Disease History: Reports: Shingles - Past Surgical History Oncologic Surgical History: Reports: Other (See Below) Social & Family History - Family History HEENT: Reports: Hearing Impairment Other HEENT Family History: Mother Cardiac: Reports: Heart Failure, Pacemaker Other Cardiac Family History: brother-pacemaker. mother- HF Respiratory: Reports: None GI: Reports: None Musculoskeletal: Reports: Arthritis Neurological: Reports: Alzheimers Disease Other Neurological Family History: Dad-alzheimer's Psychiatric: Reports: None - Tobacco Use Smoking Status *Q: Former Smoker Years of Tobacco use: 5 Packs/Tins Daily: 1 Used Tobacco, but Quit: No Month Tobacco Last Used: 1972 Second Hand Smoke Exposure: Yes - Caffeine Use Caffeine Use: Reports: Coffee Other Caffeine Use: Drinks 3-4 cups every morning - Recreational Drug Use Recreational Drug Use: No Drug Use in Last 12 Months: No - Living Situation & Occupation Living situation: Reports: Occupation: Retired ED ROS GENERAL - Review of Systems Review Of Systems: See Below Constitutional: Reports: Chills, Malaise, Weakness, Fatigue, Diaphoresis (With vomiting), Decreased Appetite. Denies: Fever HEENT: Reports: Glasses, Hearing Loss (Mild.) Respiratory: Denies: Shortness of Breath, Wheezing, Pleuritic Chest Pain, Cough , Sputum, Hemoptysis Cardiovascular: Reports: Dyspnea on Exertion (Sometimes), Palpitations. Denies : Chest Pain, Blood Pressure Problem, Claudication, Edema, Lightheadedness, Orthopnea Endocrine: Reports: Fatigue (Occasionally) GI/Abdominal: Reports: Abdominal Pain, Constipation, Nausea, Vomiting. Denies: Diarrhea, Flatus (See history of present illness) : Reports: Frequency, Other (Nocturia usually 3.) Musculoskeletal: Reports: Shoulder Pain, Back Pain Skin: Reports: No Symptoms Neurological: Reports: Dizziness (Gets quite dizzy so she with the vomiting.) Psychiatric: Reports: No Symptoms Hematologic/Lymphatic: Reports: No Symptoms ED EXAM, GI/ABD - Physical Exam Exam: See Below Exam Limited By: No Limitations General Appearance: Alert, WD/WN, No Apparent Distress Eyes: Bilateral: Normal Appearance (No jaundice) Throat/Mouth: Normal Inspection, Normal Lips, Normal Oropharynx Head: Atraumatic, Normocephalic Neck: Normal Inspection, Supple, Non-Tender, Full Range of Motion. No: Lymphadenopathy (L), Lymphadenopathy (R) Respiratory/Chest: No Respiratory Distress, Lungs Clear, Normal Breath Sounds, No Accessory Muscle Use Cardiovascular: No Edema, No Gallop, No Murmur, No Rub. No: Normal Peripheral Pulses GI/Abdominal Exam: Distended (Minimally distended and minimally tympanitic to percussion upper abdomen), Abnormal Bowel Sounds (Diffuse hyperactive bowel sounds.). No: Hepatomegaly, Splenomegaly (Male) Exam: No Hernia Extremities: Normal Inspection, Normal Range of Motion, Non-Tender, No Pedal Edema Neurological: Alert, Oriented, CN II-XII Intact, Normal Cognition Psychiatric: Normal Affect, Normal Mood Skin Exam: Warm, Dry, Intact, Normal Color, No Rash EKG INTERPRETATION EKG Date: 07/04/17 Time: 04:35 Rhythm: NSR Rate (Beats/Min): 75 [place]: Normal P-Wave: Present QRS: Other (There is early R-wave transition suggestive of right ventricular hypertrophy septal hypertrophy pattern.) ST-T: Depressed (Mild ST segment depression in V3 to V6 lead 1 and 2.) QT: Prolonged (Moderately prolonged at 453.) Course - Vital Signs Last Recorded V/S: Last Vital Signs Temp 36.4 C 07/04/17 04:11 Pulse 88 07/04/17 04:11 Resp 16 07/04/17 04:11 BP Pulse Ox 99 07/04/17 04:11 - Orders/Labs/Meds Orders: Active Orders 24 hr Category Date Time Status EKG Documentation Completion [RC] STAT Care 07/04/17 04:23 Active Enema [RC] ASDIRECTED Care 07/04/17 05:10 Active Abdomen 1V Flat [CR] Stat Exams 07/04/17 04:23 Taken URINALYSIS W/MICROSCOPIC [UA W/MICROSCOPIC] [URIN] Stat Lab 07/04/17 04:26 Uncollected Dextrose 5%-0.9% NaCl [Dextrose 5%-Normal Saline] 1,000 Med 07/04/17 04:30 Active ml IV ASDIRECTED Medication Orders Dextrose/Sodium Chloride (Dextrose 5%-Normal Saline) 1,000 mls @ 250 mls/hr IV ASDIRECTED CHRISTINA Last Admin: 07/04/17 04:31 Dose: 250 mls/hr Labs: Laboratory Tests 07/04/17 07/04/17 07/04/17 Range/Units 04:15 04:15 04:15 WBC 8.87 (4.23-9.07) K/mm3 RBC 4.77 (4.63-6.08) M/mm3 Hgb 14.4 (13.7-17.5) gm/L Hct 40.8 (40.1-51.0) % MCV 85.5 (79.0-92.2) fl MCH 30.2 (25.7-32.2) pg MCHC 35.3 (32.2-35.5) g/dl RDW Std Deviation 41.9 (35.1-43.9) fL Plt Count 247 (163-337) K/mm3 MPV 10.4 (9.4-12.3) fl Neutrophils % (Manual) 76 H (40-60) % Band Neutrophils % 1 (0-10) % Lymphocytes % (Manual) 14 L (20-40) % Atypical Lymphs % 0 % Monocytes % (Manual) 8 (2-10) % Eosinophils % (Manual) 1 (0.8-7.0) % Basophils % (Manual) 0 L (0.2-1.2) Platelet Estimate Adequate RBC Morph Comment Normal PT 11.9 (8.0-13.0) SECONDS INR 1.09 Sodium 141 (136-145) mEq/L Potassium 3.3 L (3.5-5.1) mEq/L Chloride 101 (98-107) mEq/L Carbon Dioxide 29 (21-32) mEq/L Anion Gap 14.3 (5-15) BUN 25 H (7-18) mg/dL Creatinine 1.2 (0.7-1.3) mg/dL Est Cr Clr Drug Dosing 46.67 mL/min Estimated GFR (MDRD) 58 (>60) mL/min BUN/Creatinine Ratio 20.8 H (14-18) Glucose 176 H (83-115) mg/dL Calcium 9.9 (8.5-10.1) mg/dL Magnesium 2.0 (1.8-2.4) mg/dl Total Bilirubin 0.9 (0.2-1.0) mg/dL AST 25 (15-37) U/L ALT 32 (16-63) U/L Alkaline Phosphatase 138 H (46-116) U/L Troponin I (0.00-0.056) ng/mL C-Reactive Protein 0.5 (<1.0) mg/dL NT-Pro-B Natriuret Pep 265 (0-450) pg/mL Total Protein 7.6 (6.4-8.2) g/dl Albumin 4.0 (3.4-5.0) g/dl Globulin 3.6 gm/dL Albumin/Globulin Ratio 1.1 (1-2) Lipase 52 L (73-393) U/L 07/04/17 Range/Units 04:15 WBC (4.23-9.07) K/mm3 RBC (4.63-6.08) M/mm3 Hgb (13.7-17.5) gm/L Hct (40.1-51.0) % MCV (79.0-92.2) fl MCH (25.7-32.2) pg MCHC (32.2-35.5) g/dl RDW Std Deviation (35.1-43.9) fL Plt Count (163-337) K/mm3 MPV (9.4-12.3) fl Neutrophils % (Manual) (40-60) % Band Neutrophils % (0-10) % Lymphocytes % (Manual) (20-40) % Atypical Lymphs % % Monocytes % (Manual) (2-10) % Eosinophils % (Manual) (0.8-7.0) % Basophils % (Manual) (0.2-1.2) Platelet Estimate RBC Morph Comment PT (8.0-13.0) SECONDS INR Sodium (136-145) mEq/L Potassium (3.5-5.1) mEq/L Chloride (98-107) mEq/L Carbon Dioxide (21-32) mEq/L Anion Gap (5-15) BUN (7-18) mg/dL Creatinine (0.7-1.3) mg/dL Est Cr Clr Drug Dosing mL/min Estimated GFR (MDRD) (>60) mL/min BUN/Creatinine Ratio (14-18) Glucose (83-115) mg/dL Calcium (8.5-10.1) mg/dL Magnesium (1.8-2.4) mg/dl Total Bilirubin (0.2-1.0) mg/dL AST (15-37) U/L ALT (16-63) U/L Alkaline Phosphatase (46-116) U/L Troponin I < 0.017 (0.00-0.056) ng/mL C-Reactive Protein (<1.0) mg/dL NT-Pro-B Natriuret Pep (0-450) pg/mL Total Protein (6.4-8.2) g/dl Albumin (3.4-5.0) g/dl Globulin gm/dL Albumin/Globulin Ratio (1-2) Lipase (73-393) U/L Meds: Medications Generic Name Dose Route Start Last Admin Trade Name Freq PRN Reason Stop Dose Admin Dextrose/Sodium Chloride 1,000 mls @ 250 mls/hr 07/04/17 04:30 07/04/17 04:31 Dextrose 5%-Normal Saline IV 250 mls/hr ASDIRECTED CHRISTINA Administration Discontinued Medications Generic Name Dose Route Start Last Admin Trade Name Freq PRN Reason Stop Dose Admin Hydromorphone HCl 0.5 mg 07/04/17 04:25 07/04/17 04:31 Dilaudid IVPUSH 07/04/17 04:26 0.5 mg ONETIME ONE Administration Ondansetron HCl 4 mg 07/04/17 04:25 07/04/17 04:31 Zofran IVPUSH 07/04/17 04:26 4 mg ONETIME ONE Administration - Radiology Interpretation Free Text/Narrative:: 77-year-old male presents the ED with diffuse abdominal cramping pain with associated nausea vomiting 2 days. Has vomited about 6 times in last 24 hours. Emesis is been primarily bilious or recently eaten food. Last meal was dinner time yesterday which she vomited up about an hour later. Cramps are intense and almost all infraumbilical. He doesn't believe he is passing any flatus for the last 6-8 hours. States he does feel better after vomiting is relieve some of his abdominal pain. Emesis is all been bilious without blood. Similar type problem in April of this year. History of chronic constipation with no bowel movement for 4 days. No previous abdominal surgeries. Examination reveals normal vital signs with hyperactive bowel sounds throughout. Minimally distended and minimal minimally tympanitic to percussion. Plan IV D5 normal saline at 250 mils per hour. Given Dilaudid 0.5 mg IV with Zofran 4 mg IV. One view of the abdomen to be done. Routine labs including a lipase to be done. - Re-Assessments/Exams Free Text/Narrative Re-Assessment/Exam: 07/04/17 04:42 ECG shows sinus rhythm at 75/m. There is early R-wave transition suggesting right ventricular hypertrophy pattern consider cor pulmonale/ pulmonary hypertension. 07/04/17 05:03 2 views of the abdomen have been obtained. They reveal numerous dilated loops of small bowel without air-fluid levels to suggest obstruction. There is a fair amount of stool within the left hemicolon --very little within the rectal vault. Cesium seeds are well appreciated in the prostate gland area in the pelvis. He has osteoblastic lesions with sclerotic lesions throughout the pelvis, ribs and spine compatible with metastatic cancer of the prostate. We can try a soapsuds enema although I'm not convinced will get a lot of return. Almost looks like an ileus type pattern or early small bowel obstruction pattern with no so many dilated loops of small bowel.. 07/04/17 05:12 patient reports he feels better with the current medications that he's received. Will therefore go ahead with a soapsuds enema. 07/04/17 05:20 reviewed his last admission and appears that with nasogastric tube placement and drainage for a day or 2 his bowels open up and he started to have normal bowel movements. CT of the abdomen done at that time with intravenous contrast only. There was some question as to whether or not he may have some pelvic adhesions after radiation to his prostate plus the cesium seed implants to cause a distal small bowel partial obstruction. There was some air in the rectal vault on that CT. total white count is 8.87 with 76% neutrophils 1 % bands reported. Hemoglobin is normal at 14.4 with hematocrit of 40.8. Please normal at 247,000. Coags show a PT of 11.9 and INR 1.09. 07/04/17 05:40 Patient did have very good results with the soapsuds enema. Passing large amount of stool and flatus. Feels much improved with no abdominal pain or nausea at this time. I'm therefore going to allow him to go home. He will drink plenty of fluids the day and minimize his oral food intake to more of a soft diet. I advised him that MiraLAX 1 scoop daily is indicated to keep his bowels regular. He was started on this by Dr. Horan last week. He was not aware that he can take it every day. He seems to drink plenty of fluids so this should not be a major problem. I will give him a prescription for Zofran sublingual to be taken when necessary for nausea. Lab work revealed a slightly low potassium at 3.3 slightly elevated blood sugar at 176. Serum calcium is in the normal range considering bony metastatic disease. Alk phosphatase is mildly elevated at 138. 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 Departure - Departure Time of Disposition: 05:43 Disposition: Home, Self-Care 01 Condition: Fair Clinical Impression: Constipation by delayed colonic transit Abdominal pain Qualifiers: Abdominal location: lower abdomen, unspecified Qualified Code(s): R10.30 - Lower abdominal pain, unspecified Vomiting Qualifiers: Vomiting type: bilious vomiting Nausea presence: with nausea Qualified Code(s) : R11.14 - Bilious vomiting - Discharge Information Prescriptions: Ondansetron [Zofran ODT] 4 mg PO Q6H #8 tab.dis Referrals: Priya Horan MD [Primary Care Provider] - Forms: ED Department Discharge Additional Instructions: Evaluation in the emergency department this morning in regards to diffuse abdominal cramping pain particularly in the lower abdomen associated with intermittent nausea and vomiting over the last 24 hours. Concerns for bowel obstruction existed as you were not passing any flatus for the last several hours. Also reported no bowel movement for 4 days. X-rays of the abdomen revealed increased stool throughout the left hemicolon and down into the rectal vault. There were numerous dilated loops of small bowel as well which contain mostly air without a lot of fluid and no true signs of a bowel obstruction. Lab work showed normal white blood cell count with no signs of infection. Potassium was slightly low at 3.3 but this will be corrected once you're back on regular diet. Serum calcium levels were normal. Sometimes when there is cancer in the bones the calcium levels can become very high which can cause constipation. You had good results with a soapsuds enema with passage of the large amount of flatus which I think will relieve the abdominal pain. Suggest a lot of fluids today with soft diet. May use Zofran 4 mg under the tongue every 6 hours if necessary for nausea relief. Also suggest continue MiraLAX powder 17 g or 1 scoop daily to prevent constipation issues from occurring in the future. Follow- up with personal doctor if any further problem's occur. - My Orders Last 24 Hours: My Active Orders 07/04/17 04:23 EKG Documentation Completion [RC] STAT Abdomen 1V Flat [CR] Stat 07/04/17 04:26 URINALYSIS W/MICROSCOPIC [UA W/MICROSCOPIC] [URIN] Stat 07/04/17 04:30 Dextrose 5%-0.9% NaCl [Dextrose 5%-Normal Saline] 1,000 ml IV ASDIRECTED 07/04/17 05:10 Enema [RC] ASDIRECTED - Assessment/Plan Last 24 Hours: My Active Orders 07/04/17 04:23 EKG Documentation Completion [RC] STAT Abdomen 1V Flat [CR] Stat 07/04/17 04:26 URINALYSIS W/MICROSCOPIC [UA W/MICROSCOPIC] [URIN] Stat 07/04/17 04:30 Dextrose 5%-0.9% NaCl [Dextrose 5%-Normal Saline] 1,000 ml IV ASDIRECTED 07/04/17 05:10 Enema [RC] ASDIRECTED
[2017-07-04] MEDS ORDERED: Ondansetron 4 MG/2 ML SDV IVPUSH ONE (04:25)
[2017-07-04] MEDS ORDERED: HYDROmorphone 0.5 MG/0.5 ML Syringe IVPUSH ONE (04:25)
[2017-07-04] MEDS ORDERED: Dextrose 5%-0.9% NaCl 1,000 ML IV SCH (04:30)
[2017-07-04 05:58] VITALS: BP 118/69
--- NOTE | 2017-07-04 12:15 | CR ---
Abdomen: Supine view of the abdomen was obtained. Comparison: Previous abdominal x-ray of 05/13/17. Scattered degenerative change is noted within the spine. Radiation implant seeds are seen within the prostate gland. Several scattered sclerotic areas are seen within the pelvis and left hip which remains stable. Bowel gas pattern is normal. Impression: 1. Incidental findings. Nothing acute is appreciated. Diagnostic code #2
== END 2017-07-04 05:57 | disposition home or self-care (01) ==
LOC: JD.ED 04:06
DX: K59.01 Slow transit constipation (principal); R11.14 Bilious vomiting; I10 Essential (primary) hypertension; E78.00 Pure hypercholesterolemia, unspecified; M19.90 Unspecified osteoarthritis, unspecified site; Z86.73 Personal history of transient ischemic attack (TIA), and cerebral infarction without residual deficits; Z86.711 Personal history of pulmonary embolism; Z85.46 Personal history of malignant neoplasm of prostate; Z85.820 Personal history of malignant melanoma of skin; Z87.891 Personal history of nicotine dependence; Z79.899 Other long term (current) drug therapy; Z88.8 Allergy status to other drugs, medicaments and biological substances
CPT/HCPCS: 36415; 74000; 80053; 83690; 83735; 83880; 84484; 85025; 85610; 86140; 93005; 96361; 96374; 96375; 99284; J1170; J2405; J7042

== ENCOUNTER 2017-10-03 07:20 | Day surgery (SDC) | payer MEDICARE, OTHER ==
[~2017-10-03 07:20] MED LIST changes: +Propofol 200 MG/20 ML SDV ONE; +fentaNYL 100 MCG/2 ML SDV ONE
--- NOTE | 2017-10-03 07:57 | PCM.PREANE ---
Preanesthetic Assessment - Procedure Proposed Procedure: Diagnostic EGD/ Colonoscopy - Anesthesia/Transfusion/Family Hx Anesthesia History: No Prior Anesthesia Family History of Anesthesia Reaction: No Transfusion History: No Prior Transfusion(s) Intubation History: Unknown - Review of Systems General: No Symptoms Pulmonary: No Symptoms Cardiovascular: Other (HTN ) Gastrointestinal: Other (GERD, HX SBO ) Neurological: No Symptoms Other: Reports: None - Physical Assessment NPO Status Date: 10/02/17 NPO Status Time: 19:45 O2 Sat by Pulse Oximetry: 97 Respiratory Rate: 16 Vital Signs: Last Vital Signs Temp 36.8 C 10/03/17 07:25 Pulse 67 10/03/17 07:25 Resp 16 10/03/17 07:25 BP 173/70 H 10/03/17 07:25 Pulse Ox 97 10/03/17 07:25 Height: 1.8 m Weight: 83.461 kg ASA Class: 3 Mental Status: Alert & Oriented x3 Airway Class: Mallampati = 3 Dentition: Reports: Normal Dentition Thyro-Mental Finger Breadths: 3 Mouth Opening Finger Breadths: 3 ROM/Head Extension: Full Lungs: Clear to Auscultation, Normal Respiratory Effort Cardiovascular: Regular Rate, Regular Rhythm - Allergies Allergies/Adverse Reactions: Allergies Allergy/AdvReac Type Severity Reaction Status Date / Time metoprolol AdvReac Anxiety Verified 05/12/17 07:03 rosuvastatin [From Crestor] AdvReac Anxiety Verified 05/12/17 07:03 Nhmdlap-Ivi-Avu Reductase AdvReac Leg Cramps Verified 05/12/17 07:03 Inhibitor - Blood Blood Available: No Product(s) Available: None - Anesthesia Plan Pre-Op Medication Ordered: None Beta Nohemi: Metoprolol Med Last Dose Date: 10/03/17 Med Last Dose Time: 05:30 - Acknowledgements Anesthesia Type Planned: MAC Pt an Appropriate Candidate for the Planned Anesthesia: Yes Alternatives and Risks of Anesthesia Discussed w Pt/Guardian: Yes Pt/Guardian Understands and Agrees with Anesthesia Plan: Yes PreAnesthesia Questionnaire - Past Health History Medical/Surgical History: Denies Medical/Surgical History HEENT History: Reports: None Cardiovascular History: Reports: Angina, Blood Clots/VTE/DVT, CAD, High Cholesterol, Hypertension Other Cardiovascular History: peripheral edema Respiratory History: Reports: PE, Other (See Below) Other Respiratory History: lung nodules Gastrointestinal History: Reports: Bowel Obstruction, Colon Polyp, Diverticulosis, Gastritis, GERD, Helicobacter Pylori, Hiatal Hernia Other Gastrointestinal History: esophagitis Genitourinary History: Reports: Prostate Disorder COMMERCIAL COLLECTIONS SPECIALIST History: Reports: None Musculoskeletal History: Reports: Osteoarthritis Other Musculoskeletal History: restless leg syndrome Neurological History: Reports: TIA Psychiatric History: Reports: None Endocrine/Metabolic History: Reports: None Hematologic History: Reports: Anemia Immunologic History: Reports: None Oncologic (Cancer) History: Reports: Metastatic, Prostate Other Oncologic History: prostate ca with mets to bone, bone marrow biopsy Dermatologic History: Reports: Melanoma Other Dermatologic History: removal of melanoma - Infectious Disease History Infectious Disease History: Reports: Shingles - Past Surgical History GI Surgical History: Reports: Colonoscopy, EGD Other Musculoskeletal Surgeries/Procedures:: osteoarthritis of left shoulder - SUBSTANCE USE Smoking Status *Q: Former Smoker Tobacco Use Within Last Twelve Months: No Second Hand Smoke Exposure: Yes Recreational Drug Use History: No - HOME MEDS Home Medications: Home Meds Ranitidine [Zantac] 150 mg PO DAILY 12/26/15 [History] Rivaroxaban [Xarelto] 15 mg PO DAILY 05/11/17 [History] Losartan/Hydrochlorothiazide [Losartan-HCTZ 100-25 MG] 25 - 100 mg PO DAILY [History] Pramipexole Di-HCl [Mirapex] 0.75 mg PO BEDTIME 05/12/17 [History] traMADol [Ultram] 50 mg PO DAILY PRN 05/12/17 [History] Leuprolide [Lupron Depot 3-Month] 1 injection IM ASDIRECTED 09/30/17 [History] Nitroglycerin [Nitrostat] 1 tab SL ASDIRECTED PRN 09/30/17 [History] Pramipexole [Mirapex] 0.25 mg PO DAILY 09/30/17 [History] - CURRENT (IN HOUSE) MEDS Current Meds: Current Medications Lactated Ringer's (Ringers, Lactated) 1,000 mls @ 125 mls/hr IV ASDIRECTED CHRISTINA Lidocaine/Sodium Bicarbonate (Buffered Lidocaine 1% In Ns 8.4%) 0.25 ml IV ONETIME PRN PRN Reason: Prior to IV Start Sodium Chloride (Saline Flush) 10 ml FLUSH ASDIRECTED PRN PRN Reason: Keep Vein Open Discontinued Medications Fentanyl (Sublimaze) Confirm Administered Dose 100 mcg .ROUTE .STK-MED ONE Stop: 10/03/17 07:15 Propofol (Diprivan 20 Ml) Confirm Administered Dose 200 mg .ROUTE .STK-MED ONE Stop: 10/03/17 07:15
[2017-10-03] MEDS ORDERED: Propofol 200 MG/20 ML SDV ONE ×2 (08:53→09:07)
--- NOTE | 2017-10-03 09:24 | PCM.OPNOTE ---
- General Post-Op/Procedure Note Date of Surgery/Procedure: 10/03/17 Operative Procedure(s): EGD with bx/colonoscopy to colon Pre Op Diagnosis: GERD/change in bowel habits Post-Op Diagnosis: Same Anesthesia Technique: MAC Primary Surgeon: Jacob Chun EBL in mLs: 0 Complications: None Condition: Good
[2017-10-03 09:33] VITALS: BP 160/125
[2017-10-03] MEDS ORDERED: Metoclopramide 10 MG/2 ML SDV IVPUSH SCH (10:00)
--- NOTE | 2017-10-03 12:25 | OR ---
DATE OF OPERATION: 10/03/2017 SURGEON: Jacob Chun MD PREOPERATIVE DIAGNOSIS: Gastroesophageal reflux disease. POSTOPERATIVE DIAGNOSIS: Gastroesophageal reflux disease. OPERATION PERFORMED: Esophagogastroduodenoscopy with biopsy. FINDINGS: GE junction located at 38 cm with some superficial erosions and scarring in this area. Biopsies were taken. Scope was passed into the stomach without problem. The second portion of the duodenum, duodenal bulb, pyloric channel, antrum, body and cardia of the stomach were unremarkable. J-maneuver showed a mild incompetence of the hiatus. Balance of the esophagus was unremarkable. ANESTHESIA: Under IV sedation. DESCRIPTION OF PROCEDURE: The patient was taken to the endoscopy room, placed in a supine position, connected to monitoring equipment, given IV sedation, and placed in a left lateral position. Bite block was inserted and video Olympus gastroscope was placed in the posterior oropharynx, under direct vision, threaded past the cricopharyngeus, down the esophagus and into the stomach. The stomach was insufflated, and the scope was passed through the pylorus to the second portion of the duodenum, then slowly withdrawn showing normal second portion of the duodenum, duodenal bulb, and pyloric channel. Antrum, body, and cardia of the stomach were unremarkable. J-maneuver showed fundus to be normal and mild incompetence of the hiatus. Biopsies of the antrum were taken. Scope was withdrawn to the GE junction and showed some erosions and scarring, and this was biopsied multiple times. The rest of the esophagus viewed as the scope withdrawn was unremarkable. The patient tolerated the procedure and IV sedation continued for colonoscopy. ESTIMATED BLOOD LOSS: MMODAL /[id number]
--- NOTE | 2017-10-03 12:30 | OR ---
DATE OF OPERATION: 10/03/2017 SURGEON: Jacob Chun MD PREOPERATIVE DIAGNOSIS: Change in bowel habits. POSTOPERATIVE DIAGNOSIS: Change in bowel habits. OPERATION PERFORMED: Colonoscopy to the ascending colon. FINDINGS: Moderate sigmoid diverticulosis. There were no angiodysplasias, neoplasias, large tumor, masses, ulcerations, or hemorrhoids. ANESTHESIA: Procedure done under IV sedation. DESCRIPTION OF PROCEDURE: The patient was taken to the endoscopy room, having been connected to monitoring equipment, and given IV sedation for upper GI endoscopy. This was continued for colonoscopy, placed in the left lateral position. Perianal area was inspected and was normal. Rectal exam showed good sphincter tone. A video Olympus colonoscope was then introduced into the rectum and threaded up without a problem to the ascending colon. Because of a loop, it could not be advanced into the cecum. Prep was adequate. [place] cleansing score grade B. It was slowly withdrawn showing the ascending colon, transverse colon, descending colon, sigmoid colon, and rectum. The above noted was found. The patient tolerated the procedure and was sent to recovery room in a stable condition, and will be followed up in the clinic. ESTIMATED BLOOD LOSS: MMODAL /[id number]
== END 2017-10-03 10:27 | disposition home or self-care (01) ==
LOC: JD.SDS 07:20
PROVIDERS: ATTEND Surgery
DX: K29.50 Unspecified chronic gastritis without bleeding (principal); K21.0 Gastro-esophageal reflux disease with esophagitis; K57.30 Diverticulosis of large intestine without perforation or abscess without bleeding; G45.9 Transient cerebral ischemic attack, unspecified; I10 Essential (primary) hypertension; E78.2 Mixed hyperlipidemia; R73.9 Hyperglycemia, unspecified; Z88.8 Allergy status to other drugs, medicaments and biological substances; Z79.899 Other long term (current) drug therapy; Z87.891 Personal history of nicotine dependence
CPT/HCPCS: 43239; 45378; J2765; J3010; J7120; 00810; 88305; 88342; J2704

== ENCOUNTER 2020-08-20 06:49 | Observation (INO) | payer MEDICARE, OTHER ==
--- NOTE | 2020-08-20 06:57 | EDM.PDOC ---
ED HPI GENERAL MEDICAL PROBLEM - General Chief Complaint: Gastrointestinal Problem Stated Complaint: [facility] Time Seen by Provider: 08/20/20 06:57 Source of Information: Reports: Patient History Limitations: Reports: No Limitations - History of Present Illness INITIAL COMMENTS - FREE TEXT/NARRATIVE: 80-year-old male presents to the ED per [facility]. 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 Initial diagnosis was about 6 years ago and he was treated with cesium seed implants . PSA started to go up over the last 18 months.He recieved further radiation to his pelvis initially . Patient has received 7 course out of 12 proposed courses of chemotherapy on TuesdayAugust 15. He states usually it makes him have significant nausea difficulty eating and some diarrhea. Vomiting started last evening about 2000 hrs. and he vomited recurrently all night long. Diarrhea started about midnight and he proposes that he has had at least 6 large volume stool losses. He did not notice blood in emesis or diarrhea per se. This morning he was lightheaded dizzy on his way into the bathroom and fell to the floor injuring his left ribs he believes on the tile floor. He does not believe he lost consciousness completely. He could not get up because of weakness and crawled out to the hallway where his met him. She then called the ambulance. Patient remains weak and nauseated. No definitive fever or chills. Appetite has been poor for the last 2 and half days. Of note the patient is on Xarelto 15mg once daily. Onset: Sudden Onset Date: 08/19/20 Onset Time: 20:00 Duration: Hour(s):, Getting Worse Location: Reports: Abdomen (Lysed weakness with syncopal event at home this morning. Intractable nausea and vomiting and large volume diarrhea stool losses.), Generalized Quality: Reports: Other (Generalized severe weakness.) Severity: Severe (Weakness) Improves with: Reports: None Worsens with: Reports: Other (Trying to get up and) Context: Reports: Other (Giving chemotherapy for bone metastatic prostate cancer. Nausea vomiting diarrhea felt to be secondary to recent chemotherapy.). Denies: Activity ( walk.), Exercise, Lifting, Sick Contact, Trauma Associated Symptoms: Reports: Chest Pain, Cough (Mild), Loss of Appetite, Malaise, Nausea/Vomiting, Shortness of Breath, Syncope (Clement in his bathroom this morning probably about 530 hours. Injury to his left lateral ribs), Weakness (Generalized), Other (Persistent diarrhea large volume fluid losses). Denies: Confusion, cough w sputum, Diaphoresis, Fever/Chills ( intermittent cough nonproductive), Headaches, Rash, Seizure (With nausea and vomiting since 2000 hrs. last night no hemoptysis.) Treatments WATERSHED COORDINATOR: Reports: Other (see below) (None.) Left Chest Pain Score (Numeric/FACES): 8 - Related Data Allergies Allergy/AdvReac Type Severity Reaction Status Date / Time metoprolol AdvReac Anxiety Verified 08/20/20 06:57 rosuvastatin [From Crestor] AdvReac Anxiety Verified 08/20/20 06:57 Okljrcn-Sua-Feo Reductase AdvReac Leg Cramps Verified 08/20/20 06:57 Inhibitor Home Meds: Home Meds traMADol [Ultram] 50 mg PO TID PRN 05/12/17 [History] Pramipexole [Mirapex] 0.75 mg PO BEDTIME 09/30/17 [History] Apixaban [Eliquis] 5 mg PO BID 08/20/20 [History] Famotidine 20 mg PO BEDTIME PRN 08/20/20 [History] Losartan [Cozaar] 100 mg PO DAILY 08/20/20 [History] Magnesium Oxide 400 mg PO DAILY 08/20/20 [History] Nitroglycerin 0.6 mg SL ASDIRECTED PRN 08/20/20 [History] Ondansetron [Zofran Odt] 8 mg SL Q8H PRN 08/20/20 [History] Potassium Chloride [K-Tab ER] 10 meq PO ASDIRECTED 08/20/20 [History] Pravastatin [Pravachol] 40 mg PO DAILY 08/20/20 [History] Prochlorperazine [Compazine] 10 mg PO QID PRN 08/20/20 [History] amLODIPine [Norvasc] 5 mg PO DAILY 08/20/20 [History] hydroCHLOROthiazide [Hydrochlorothiazide] 25 mg PO DAILY 08/20/20 [History] predniSONE 5 mg PO BID 08/20/20 [History] traMADol [Ultram] 25 - 50 mg PO BEDTIME PRN 08/20/20 [History] Past Medical History - Past Health History Medical/Surgical History: Denies Medical/Surgical History HEENT History: Reports: None Cardiovascular History: Reports: Angina, Blood Clots/VTE/DVT, CAD, High Cholesterol, Hypertension Other Cardiovascular History: peripheral edema Respiratory History: Reports: PE, Other (See Below) Other Respiratory History: lung nodules Gastrointestinal History: Reports: Bowel Obstruction, Colon Polyp, Diverticulosis, Gastritis, GERD, Helicobacter Pylori, Hiatal Hernia Other Gastrointestinal History: esophagitis Genitourinary History: Reports: Prostate Disorder COMPETITIVE INTELLIGENCE ANALYST History: Reports: None Musculoskeletal History: Reports: Osteoarthritis Other Musculoskeletal History: restless leg syndrome Neurological History: Reports: TIA Psychiatric History: Reports: None Endocrine/Metabolic History: Reports: None Hematologic History: Reports: Anemia Immunologic History: Reports: None Oncologic (Cancer) History: Reports: Metastatic, Prostate Other Oncologic History: prostate ca with mets to bone, bone marrow biopsy. Initial diagnosis of prostate cancer was approximately 2013 and initial treatment was cesium seed implants. Dermatologic History: Reports: Melanoma Other Dermatologic History: removal of melanoma - Infectious Disease History Infectious Disease History: Reports: Shingles - Past Surgical History GI Surgical History: Reports: Colonoscopy, EGD Other Musculoskeletal Surgeries/Procedures:: osteoarthritis of left shoulder Social & Family History - Family History HEENT: Reports: Hearing Impairment Other HEENT Family History: Mother Cardiac: Reports: Heart Failure, Pacemaker Other Cardiac Family History: brother-pacemaker. 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 Denies: Fever, Chills HEENT: Reports: Glasses Respiratory: Reports: Shortness of Breath, Cough (Minimal production of sputum.). Denies: Wheezing, Pleuritic Chest Pain Cardiovascular: Reports: Chest Pain (Left sided chest wall pain after falling from syncopal event this morning onto the bathroom tiled floor.), Blood Pressure Problem, Dyspnea on Exertion, Lightheadedness, Syncope (Syncopal event this morning likely due to orthostatic hypotension.). Denies: Claudication, Orthopnea Endocrine: Reports: Fatigue GI/Abdominal: Reports: Abdominal Pain (Generalized abdominal discomfort), Diarr hea (Prolific diarrhea 6-7 times overnight large volume fluid losses without any blood appreciated.), Decreased Appetite, Difficulty Swallowing (Informed to swallow over the last 2 days. States this usually occurs with his chemotherapy.), Nausea, Vomiting. Denies: Hematemesis, Hematochezia, Melena (With no hemoptysis.) : Reports: Other (Decreased urine output overnight.) Musculoskeletal: Reports: Neck Pain (Left posterior neck pain), Shoulder Pain, Back Pain, Other (Left chest wall pain) Skin: Reports: Bruising Neurological: Reports: Dizziness, Syncope (X1 this morning is approximate 0530 hrs. when he fell in the bathroom onto the hard tile floor. He does not believe he struck any of the), Difficulty Walking, Weakness. Denies: Confusion, Headache, Numbness, Paresthesia, Pre-Existing Deficit, Seizure (Due to weakness.), Tingling, Tremors Psychiatric: Reports: No Symptoms Hematologic/Lymphatic: Reports: Anemia, Easy Bleeding, Easy Bruising Immunologic: Reports: No Symptoms ED EXAM, GI/ABD - Physical Exam Exam: See Below Exam Limited By: No Limitations General Appearance: Alert, Moderate Distress, Other (Temperature is 36.8 with a heart rate of 72 respiratory 16 with O2 sats 100% room air BP 90/44) Eyes: Bilateral: Normal Appearance (No scleral icterus mild lateral pallor.) Throat/Mouth: Other (Tongue is dry and coated.) Head: Atraumatic ( No aphthous ulcers appreciated), Normocephalic Neck: Normal Inspection, Tender Lateral (Tender laterally at the base of the cervical spine adjacent to the left C7 vertebra.). No: Lymphadenopathy (L), Lymphadenopathy (R) Respiratory/Chest: No Respiratory Distress, Lungs Clear, Normal Breath Sounds, Other (Tenderness to palpation of left posterior lateral ribs without palpable subcutaneous emphysema or crepitus.) Cardiovascular: Regular Rate, Rhythm, No Edema, No Gallop, No Murmur, Other (Patient has a Port-A-Cath left upper anterior chest.) GI/Abdominal Exam: No Organomegaly, No Mass, Tender (It is in the epigastrium on exam.), Abnormal Bowel Sounds (Bowel sounds are diminished throughout all lung robles at this time). No: Distended, Guarding, Rigid, Rebound Back Exam: Decreased Range of Motion, Other (Contusion posterior lateral mid thorax.) Extremities: Other (Minimal contusions to the anterior aspect of both knees left worse than the right. He is able to lift both legs off the gurney but has limited internal and external rotation of both hips due to arthritis. Clinically no evidence of fracture pelvis.) Neurological: Alert, Oriented, CN II-XII Intact, Normal Cognition Psychiatric: Normal Affect, Normal Mood Skin Exam: Warm, Dry, Intact, Normal Color, Other (Contusions to both anterior knees and left posterior thorax.). No: No Rash #1 Interpretation EKG Date: 08/20/20 Time: 06:56 Rhythm: NSR Rate (Beats/Min): 72 Henning: Normal P-Wave: Present QRS: Other (Early R wave transition consider right ventricular hypertrophy versus septal hypertrophy pattern.) ST-T: Other (T wave inversion in aVL nonspecific finding) QT: Prolonged (Moderately prolonged) EKG Interpretation Comments: Abnormal ECG Course - Vital Signs Last Recorded V/S: Last Vital Signs Temp 36.8 C 08/20/20 06:57 Pulse 72 08/20/20 06:57 Resp 16 08/20/20 06:57 BP 90/44 L 08/20/20 06:57 Pulse Ox 100 08/20/20 06:57 - Orders/Labs/Meds Orders: Active Orders 24 hr Category Date Time Status Blood Glucose Check, Bedside [RC] ONETIME Care 08/20/20 07:15 Active EKG 12 Lead [EKG Documentation Completion] [RC] STAT Care 08/20/20 06:55 Active Insert Ruano Catheter [Insert Urinary Catheter] [OM.PC] Care 08/20/20 08:15 Ordered Stat Urinary Catheter Assessment [RC] ASDIRECTED Care 08/20/20 08:15 Active Cervical Spine wo Cont [CT] Stat Exams 08/20/20 07:36 Taken Chest wo Cont [CT] Stat Exams 08/20/20 07:39 Taken Head wo Cont [CT] Stat Exams 08/20/20 07:35 Taken CULTURE BLOOD [BC] Stat Lab 08/20/20 07:49 Received CULTURE BLOOD [BC] Stat Lab 08/20/20 08:04 Received LACTIC ACID [CHEM] Stat Lab 08/20/20 10:13 Ordered Dextrose 5%-0.9% NaCl [Dextrose 5%-Normal Saline] 1,000 Med 08/20/20 07:30 Active ml IV ASDIRECTED Lactated Ringers [Ringers, Lactated] 1,000 ml Med 08/20/20 10:15 Active IV ASDIRECTED Blood Culture x2 Reflex Set [OM.PC] Stat Oth 08/20/20 07:16 Ordered Medication Orders Dextrose/Sodium Chloride (Dextrose 5%-Normal Saline) 1,000 mls @ 999 mls/hr IV ASDIRECTED CHRISTINA Last Admin: 08/20/20 07:37 Dose: 999 mls/hr Documented by: LYNN Lactated Ringer's (Ringers, Lactated) 1,000 mls @ 75 mls/hr IV ASDIRECTED [facility] Labs: Laboratory Tests 08/20/20 08/20/20 08/20/20 Range/Units 07:40 07:49 07:49 WBC 7.01 (4.23-9.07) K/mm3 RBC 4.02 L (4.63-6.08) M/mm3 Hgb 10.5 L D (13.7-17.5) gm/dl Hct 32.2 L (40.1-51.0) % MCV 80.1 D (79.0-92.2) fl MCH 26.1 (25.7-32.2) pg MCHC 32.6 (32.2-35.5) g/dl RDW Std Deviation 46.9 H (35.1-43.9) fL Plt Count 197 (163-337) K/mm3 MPV 10.2 (9.4-12.3) fl Neut % (Auto) 77.2 H (34.0-67.9) % Lymph % (Auto) 18.5 L (21.8-53.1) % Brule % (Auto) 1.9 L (5.3-12.2) % Eos % (Auto) 0 L (0.8-7.0) Baso % (Auto) 1.3 H (0.1-1.2) % Neut # (Auto) 5.41 H (1.78-5.38) K/mm3 Lymph # (Auto) 1.30 L (1.32-3.57) K/mm3 Brule # (Auto) 0.13 L (0.30-0.82) K/mm3 Eos # (Auto) 0.00 L (0.04-0.54) K/mm3 Baso # (Auto) 0.09 H (0.01-0.08) K/mm3 ESR (0-15) mm/hr PT 11.4 (9.7-12.0) SECONDS INR 1.07 APTT 28.5 (21.7-31.4) SECONDS Sodium (136-145) mEq/L Potassium (3.5-5.1) mEq/L Chloride (98-107) mEq/L Carbon Dioxide (21-32) mEq/L Anion Gap (5-15) BUN (7-18) mg/dL Creatinine (0.7-1.3) mg/dL Est Cr Clr Drug Dosing mL/min Estimated GFR (MDRD) (>60) mL/min BUN/Creatinine Ratio (14-18) Glucose (83-115) mg/dL Lactic Acid (0.4-2.0) mmol/L Calcium (8.5-10.1) mg/dL Magnesium (1.8-2.4) mg/dl Total Bilirubin (0.2-1.0) mg/dL AST (15-37) U/L ALT (16-63) U/L Alkaline Phosphatase (46-116) U/L Troponin I (0.00-0.056) ng/mL C-Reactive Protein (<1.0) mg/dL NT-Pro-B Natriuret Pep (0-450) pg/mL Total Protein (6.4-8.2) g/dl Albumin (3.4-5.0) g/dl Globulin gm/dL Albumin/Globulin Ratio (1-2) Lipase (73-393) U/L Urine Color (Yellow) Urine Appearance (Clear) Urine pH (5.0-8.0) Ur Specific Weems (1.005-1.030) Urine Protein (Negative) Urine Glucose (UA) (Negative) Urine Ketones (Negative) Urine Occult Blood (Negative) Urine Nitrite (Negative) Urine Bilirubin (Negative) Urine Urobilinogen (0.2-1.0) Ur Leukocyte Esterase (Negative) U Hyaline Cast (Auto) (0-5) /lpf Urine RBC (0-5) /hpf Urine WBC (0-5) /hpf Ur Epithelial Cells (0-5) /hpf Urine Bacteria (FEW) /hpf Urine Mucus (FEW) /hpf SARS-CoV-2 RNA (ANNE) Negative (NEGATIVE) 08/20/20 08/20/20 08/20/20 Range/Units 07:49 07:49 07:49 WBC (4.23-9.07) K/mm3 RBC (4.63-6.08) M/mm3 Hgb (13.7-17.5) gm/dl Hct (40.1-51.0) % MCV (79.0-92.2) fl MCH (25.7-32.2) pg MCHC (32.2-35.5) g/dl RDW Std Deviation (35.1-43.9) fL Plt Count (163-337) K/mm3 MPV (9.4-12.3) fl Neut % (Auto) (34.0-67.9) % Lymph % (Auto) (21.8-53.1) % Brule % (Auto) (5.3-12.2) % Eos % (Auto) (0.8-7.0) Baso % (Auto) (0.1-1.2) % Neut # (Auto) (1.78-5.38) K/mm3 Lymph # (Auto) (1.32-3.57) K/mm3 Brule # (Auto) (0.30-0.82) K/mm3 Eos # (Auto) (0.04-0.54) K/mm3 Baso # (Auto) (0.01-0.08) K/mm3 ESR 13 (0-15) mm/hr PT (9.7-12.0) SECONDS INR APTT (21.7-31.4) SECONDS Sodium 133 L (136-145) mEq/L Potassium 3.7 (3.5-5.1) mEq/L Chloride 98 (98-107) mEq/L Carbon Dioxide 24 (21-32) mEq/L Anion Gap 14.7 (5-15) BUN 21 H (7-18) mg/dL Creatinine 1.1 (0.7-1.3) mg/dL Est Cr Clr Drug Dosing 55.14 mL/min Estimated GFR (MDRD) > 60 (>60) mL/min BUN/Creatinine Ratio 19.1 H (14-18) Glucose 201 H (83-115) mg/dL Lactic Acid (0.4-2.0) mmol/L Calcium 7.5 L D (8.5-10.1) mg/dL Magnesium 2.7 H (1.8-2.4) mg/dl Total Bilirubin 0.9 (0.2-1.0) mg/dL AST 19 (15-37) U/L ALT 22 (16-63) U/L Alkaline Phosphatase 106 (46-116) U/L Troponin I < 0.017 (0.00-0.056) ng/mL C-Reactive Protein 3.4 H* (<1.0) mg/dL NT-Pro-B Natriuret Pep 229 (0-450) pg/mL Total Protein 5.9 L (6.4-8.2) g/dl Albumin 3.0 L (3.4-5.0) g/dl Globulin 2.9 gm/dL Albumin/Globulin Ratio 1.0 (1-2) Lipase (73-393) U/L Urine Color (Yellow) Urine Appearance (Clear) Urine pH (5.0-8.0) Ur Specific Weems (1.005-1.030) Urine Protein (Negative) Urine Glucose (UA) (Negative) Urine Ketones (Negative) Urine Occult Blood (Negative) Urine Nitrite (Negative) Urine Bilirubin (Negative) Urine Urobilinogen (0.2-1.0) Ur Leukocyte Esterase (Negative) U Hyaline Cast (Auto) (0-5) /lpf Urine RBC (0-5) /hpf Urine WBC (0-5) /hpf Ur Epithelial Cells (0-5) /hpf Urine Bacteria (FEW) /hpf Urine Mucus (FEW) /hpf SARS-CoV-2 RNA (ANNE) (NEGATIVE) 08/20/20 08/20/20 08/20/20 Range/Units 07:49 07:49 08:15 WBC (4.23-9.07) K/mm3 RBC (4.63-6.08) M/mm3 Hgb (13.7-17.5) gm/dl Hct (40.1-51.0) % MCV (79.0-92.2) fl MCH (25.7-32.2) pg MCHC (32.2-35.5) g/dl RDW Std Deviation (35.1-43.9) fL Plt Count (163-337) K/mm3 MPV (9.4-12.3) fl Neut % (Auto) (34.0-67.9) % Lymph % (Auto) (21.8-53.1) % Brule % (Auto) (5.3-12.2) % Eos % (Auto) (0.8-7.0) Baso % (Auto) (0.1-1.2) % Neut # (Auto) (1.78-5.38) K/mm3 Lymph # (Auto) (1.32-3.57) K/mm3 Brule # (Auto) (0.30-0.82) K/mm3 Eos # (Auto) (0.04-0.54) K/mm3 Baso # (Auto) (0.01-0.08) K/mm3 ESR (0-15) mm/hr PT (9.7-12.0) SECONDS INR APTT (21.7-31.4) SECONDS Sodium (136-145) mEq/L Potassium (3.5-5.1) mEq/L Chloride (98-107) mEq/L Carbon Dioxide (21-32) mEq/L Anion Gap (5-15) BUN (7-18) mg/dL Creatinine (0.7-1.3) mg/dL Est Cr Clr Drug Dosing mL/min Estimated GFR (MDRD) (>60) mL/min BUN/Creatinine Ratio (14-18) Glucose (83-115) mg/dL Lactic Acid 2.2 H* (0.4-2.0) mmol/L Calcium (8.5-10.1) mg/dL Magnesium (1.8-2.4) mg/dl Total Bilirubin (0.2-1.0) mg/dL AST (15-37) U/L ALT (16-63) U/L Alkaline Phosphatase (46-116) U/L Troponin I (0.00-0.056) ng/mL C-Reactive Protein (<1.0) mg/dL NT-Pro-B Natriuret Pep (0-450) pg/mL Total Protein (6.4-8.2) g/dl Albumin (3.4-5.0) g/dl Globulin gm/dL Albumin/Globulin Ratio (1-2) Lipase 28 L (73-393) U/L Urine Color Dark yellow (Yellow) Urine Appearance Slt cloudy H (Clear) Urine pH 7.5 (5.0-8.0) Ur Specific Weems 1.025 (1.005-1.030) Urine Protein 2+ H (Negative) Urine Glucose (UA) Negative (Negative) Urine Ketones Trace H (Negative) Urine Occult Blood Negative (Negative) Urine Nitrite Negative (Negative) Urine Bilirubin Negative (Negative) Urine Urobilinogen 1.0 (0.2-1.0) Ur Leukocyte Esterase Negative (Negative) U Hyaline Cast (Auto) 0-5 (0-5) /lpf Urine RBC 0-5 (0-5) /hpf Urine WBC 0-5 (0-5) /hpf Ur Epithelial Cells Not seen (0-5) /hpf Urine Bacteria Few (FEW) /hpf Urine Mucus Few (FEW) /hpf SARS-CoV-2 RNA (ANNE) (NEGATIVE) Meds: Medications Generic Name Dose Route Start Last Admin Trade Name Gisselle PRN Reason Stop Dose Admin Dextrose/Sodium Chloride 1,000 mls @ 999 mls/hr 08/20/20 07:30 08/20/20 07:37 Dextrose 5%-Normal Saline IV 999 mls/hr ASDIRECTED CHRISTINA Administration Lactated Ringer's 1,000 mls @ 75 mls/hr 08/20/20 10:15 Ringers, Lactated IV ASDIRECTED CHRISTINA Discontinued Medications Generic Name Dose Route Start Last Admin Trade Name Gisselle PRN Reason Stop Dose Admin Hydromorphone HCl 0.5 mg 08/20/20 07:19 08/20/20 07:33 Dilaudid IVPUSH 08/20/20 07:20 0.5 mg ONETIME ONE Administration Hydromorphone HCl 0.5 mg 08/20/20 09:19 08/20/20 09:25 Dilaudid IVPUSH 08/20/20 09:20 0.5 mg ONETIME ONE Administration Metoclopramide HCl 7.5 mg 08/20/20 07:18 08/20/20 07:30 Reglan IVPUSH 08/20/20 07:19 7.5 mg ONETIME ONE Administration Pramipexole Dihydrochloride 0.5 mg 08/20/20 09:18 08/20/20 09:30 Mirapex PO 08/20/20 09:19 0.5 mg ONETIME ONE Administration - Radiology Interpretation Free Text/Narrative:: 80-year-old male presents to the ED predicts an ambulance from his home here in [place]. Patient is currently receiving chemotherapy and finished his seventh out of pupils 12 course on August 15. He states the chemotherapy is for prostate cancer stage IV which is spread to multiple bones. Initial prostate cancer treated many years ago with cesium seed implants. Patient has always developed some nausea and some diarrhea and usually vomiting with chemotherapy. However this is the worst that he is ever felt. He states diarrhea started around midnight with 6 or 7 prolific large-volume stool losses without noted blood. Vomiting started about 2000 hrs. last night and is continue at least every 30 to 45 minutes without hematemesis. This morning at approximately 530 hours while he was in the bathroom to vomit once again he became very lightheaded dizzy and fell to the floor landing on hard tiled surface. Injury to the left posterior lateral ribs and some pain noted at the base of his left neck. Patient is on Xarelto 15 mg once daily as well. Blood pressure is low with initial systolic pressure of 86. IV will be started D5 normal saline at open. He will be given Reglan 7.5 mg IV for nausea relief and Dilaudid 0.5 mg IV for pain relief. Routine labs to be collected including the coronavirus screen as he is likely going to require admission to the hospital. He will have CT of his cervical spine had and chest without contrast . - Re-Assessments/Exams Free Text/Narrative Re-Assessment/Exam: 08/20/20 08:36 White blood cell count is 7.01 with 77.2% neutrophils. Hemoglobin is 10.5 with hematocrit of 32.2. Platelet count 197,000. Urinalysis is dark yellow slightly cloudy with 2+ proteinuria and trace of ketones no evidence of infection. Patient is currently in the CT suite. 08/20/20 08:55 Blood pressure has improved to 110/47. O2 sats 98%. Heart rate down to 81/min. 08/20/20 08:57 Sodium is 133 with a potassium of 3.7. Chloride is 98 with a bicarb of 24. Anion gap is 14.7. BUN is slightly elevated at 21 with a creatinine of 1.1 and a GFR greater than 60. BUN/creatinine ratio slightly elevated at 19.1. Glucose elevated at 201. Lactic acid elevated at 2.2. Calcium 7.5 with a magnesium of 2.7. Bilirubin and liver function are normal. Troponin I less than 0.017 C-reactive protein is elevated at 3.4. BNP is 229 total protein is low at 5.9 with an albumin fraction low at 3.0. Lipase is normal at 28. COVID-19 screen is negative. Blood pressure is 110/47. Heart rate 81 and sinus O2 sats 99% room air. 08/20/20 09:19 Patient is having increased bilateral leg pain due to restless leg syndrome. 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 This is likely been aggravated by the use of Reglan 7.5 mg IV for nausea and vomiting relief. Reglan was utilized because of a prolonged QT interval which could be made worse by Zofran. I am going to therefore give the Mirapex 0.5 mg p.o. now and an additional dose of Dilaudid 0.5 mg IV for pain relief. Blood pressure is currently up to 132/55. CT of cervical spine reveals loss of normal curvature. Diffuse degenerative changes from C-3 to C -7 identified. Bone is demineralized in this area . CT of the chest done without contrast reveals no obvious rib fractures or pulmonary contusion. There is no pneumothorax. Mild changes of emphysema with scarring in the lung apices right worse than the left. Calcified granuloma right middle lobe of lung. Mild cardiomegaly. Indwelling left central venous catheter with tip in the superior vena cava. There is evidence of diffuse sclerotic skeletal metastases which have progressed since 05/11/2017. No fractures are identified degenerative arthritis throughout the thoracic spine diffuse atherosclerosis of the thoracic and abdominal aorta without aneurysmal change. Visualized portions of the upper abdomen reveal liver to have fatty infiltration. Gallbladder does not reveal any calcified gallstones. Stomach appears normal. Spleen is slightly enlarged. Kidneys are atrophic bilaterally without any obvious stones. No signs of urinary tract obstruction. CT scans of the brain reveal no skull fractures. No intracranial bleeding or mass-effect. Diffuse small vessel ischemic change appreciated both basal ganglia. No evidence of infarct identified. There is some motion artifact on this CT. 10/28/20 10:00 [facility] has over read the CT scans of the head neck and chest and they agree with no evidence of fractures. Will discuss case with on-call hospitalist Dr. Claire with a view to having him admitted for observation status to replenish his fluids and make sure that he is able to eat and drink without aggravation of his diarrhea. 08/20/20 10:10 I have spoken with Dr Molina and he has accepted care. He will be admitted to the med surgery floor per observation status. Scheduled for repeat lactic acid draw at 11 AM. Departure - Departure Time of Disposition: 10:31 Disposition: Refer to Observation Condition: Fair Clinical Impression: Intractable nausea and vomiting, Severe diarrhea, Adenocarcinoma of prostate, stage 4, Lactic acidosis Adverse effect of chemotherapy Qualifiers: Encounter type: initial encounter Qualified Code(s): T45.1X5A - Adverse effect of antineoplastic and immunosuppressive drugs, initial encounter - Discharge Information *PRESCRIPTION DRUG MONITORING PROGRAM REVIEWED*: Not Applicable *COPY OF PRESCRIPTION DRUG MONITORING REPORT IN PATIENT TERRANCE: Not Applicable Referrals: PCP,None [Ordering Only Provider] - Forms: ED Department Discharge Sepsis Event Note (ED) - Focused Exam Vital Signs: Vital Signs Temp Pulse Resp BP Pulse Ox 08/20/20 06:57 36.8 C 72 16 90/44 L 100 - My Orders Last 24 Hours: My Active Orders 08/20/20 06:55 EKG 12 Lead [EKG Documentation Completion] [RC] STAT 08/20/20 07:15 Blood Glucose Check, Bedside [RC] ONETIME 08/20/20 07:16 Blood Culture x2 Reflex Set [OM.PC] Stat 08/20/20 07:30 Dextrose 5%-0.9% NaCl [Dextrose 5%-Normal Saline] 1,000 ml IV ASDIRECTED 08/20/20 07:35 Head wo Cont [CT] Stat 08/20/20 07:36 Cervical Spine wo Cont [CT] Stat 08/20/20 07:39 Chest wo Cont [CT] Stat 08/20/20 07:49 CULTURE BLOOD [BC] Stat 08/20/20 08:04 CULTURE BLOOD [BC] Stat 08/20/20 08:15 Insert Ruano Catheter [Insert Urinary Catheter] [OM.PC] Stat Urinary Catheter Assessment [RC] ASDIRECTED 08/20/20 10:13 LACTIC ACID [CHEM] Stat 08/20/20 10:15 Lactated Ringers [Ringers, Lactated] 1,000 ml IV ASDIRECTED - Assessment/Plan Last 24 Hours: My Active Orders 08/20/20 06:55 EKG 12 Lead [EKG Documentation Completion] [RC] STAT 08/20/20 07:15 Blood Glucose Check, Bedside [RC] ONETIME 08/20/20 07:16 Blood Culture x2 Reflex Set [OM.PC] Stat 08/20/20 07:30 Dextrose 5%-0.9% NaCl [Dextrose 5%-Normal Saline] 1,000 ml IV ASDIRECTED 08/20/20 07:35 Head wo Cont [CT] Stat 08/20/20 07:36 Cervical Spine wo Cont [CT] Stat 08/20/20 07:39 Chest wo Cont [CT] Stat 08/20/20 07:49 CULTURE BLOOD [BC] Stat 08/20/20 08:04 CULTURE BLOOD [BC] Stat 08/20/20 08:15 Insert Ruano Catheter [Insert Urinary Catheter] [OM.PC] Stat Urinary Catheter Assessment [RC] ASDIRECTED 08/20/20 10:13 LACTIC ACID [CHEM] Stat 08/20/20 10:15 Lactated Ringers [Ringers, Lactated] 1,000 ml IV ASDIRECTED
[2020-08-20] MEDS ORDERED: Metoclopramide 10 MG/2 ML SDV IVPUSH ONE (07:18)
[2020-08-20] MEDS ORDERED: HYDROmorphone 0.5 MG/0.5 ML Syringe IVPUSH ONE ×2 (07:19→09:19)
[2020-08-20] MEDS ORDERED: Dextrose 5%-0.9% NaCl 1,000 ML IV SCH (07:30)
[2020-08-20] MEDS ORDERED: Pramipexole 0.5 MG Tab PO ONE (09:18)
[2020-08-20] MEDS ORDERED: Lactated Ringers 1,000 ML IV SCH (10:15)
[2020-08-20] MEDS ORDERED: Ondansetron 4 MG/2 ML SDV IV PRN (10:40)
[2020-08-20] MEDS ORDERED: Acetaminophen 325 MG Tab PO PRN (10:40)
--- NOTE | 2020-08-20 12:33 | PCM.HP.2 ---
H&P History of Present Illness - General Date of Service: 08/20/20 Admit Problem/Dx: Admission Diagnosis/Problem Admission Diagnosis/Problem Nausea and vomiting Source of Information: Patient, Provider History Limitations: Reports: No Limitations - History of Present Illness Initial Comments - Free Text/Narative: 80-year-old male presents to the ED per [facility]. 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 Initial diagnosis was about 6 years ago and he was treated with cesium seed implants . PSA started to go up over the last 18 months.He recieved further radiation to his pelvis initially . Patient has received 7 course out of 12 proposed courses of chemotherapy on TuesdayAugust 15. He states usually it makes him have significant nausea difficulty eating and some diarrhea. Vomiting started last evening about 2000 hrs. and he vomited recurrently all night long. Diarrhea started about midnight and he proposes that he has had at least 6 large volume stool losses. He did not notice blood in emesis or diarrhea per se. This morning he was lightheaded di zzy on his way into the bathroom and fell to the floor injuring his left ribs he believes on the tile floor. He does not believe he lost consciousness completely. He could not get up because of weakness and crawled out to the hallway where his met him. She then called the ambulance. Patient remains weak and nauseated. No definitive fever or chills. Appetite has been poor for the last 2 and half days. Of note the patient is on Xarelto 15mg once daily. Left Chest Pain Score (Numeric/FACES): 8 - Related Data Allergies/Adverse Reactions: Allergies Allergy/AdvReac Type Severity Reaction Status Date / Time metoprolol AdvReac Anxiety Verified 08/20/20 06:57 rosuvastatin [From Crestor] AdvReac Anxiety Verified 08/20/20 06:57 Nliluro-Vtt-Hqv Reductase AdvReac Leg Cramps Verified 08/20/20 06:57 Inhibitor Home Medications: Home Meds traMADol [Ultram] 50 mg PO TID PRN 05/12/17 [History] Pramipexole [Mirapex] 0.75 mg PO BEDTIME 09/30/17 [History] Apixaban [Eliquis] 5 mg PO BID 08/20/20 [History] Famotidine 20 mg PO BEDTIME PRN 08/20/20 [History] Losartan [Cozaar] 100 mg PO DAILY 08/20/20 [History] Magnesium Oxide 400 mg PO DAILY 08/20/20 [History] Nitroglycerin 0.6 mg SL ASDIRECTED PRN 08/20/20 [History] Ondansetron [Zofran Odt] 8 mg SL Q8H PRN 08/20/20 [History] Potassium Chloride [K-Tab ER] 10 meq PO ASDIRECTED 08/20/20 [History] Pravastatin [Pravachol] 40 mg PO DAILY 08/20/20 [History] Prochlorperazine [Compazine] 10 mg PO QID PRN 08/20/20 [History] amLODIPine [Norvasc] 5 mg PO DAILY 08/20/20 [History] hydroCHLOROthiazide [Hydrochlorothiazide] 25 mg PO DAILY 08/20/20 [History] predniSONE 5 mg PO BID 08/20/20 [History] traMADol [Ultram] 25 - 50 mg PO TID PRN 08/20/20 [History] Past Medical History - Past Health History Medical/Surgical History: Denies Medical/Surgical History HEENT History: Reports: None Cardiovascular History: Reports: Angina, Blood Clots/VTE/DVT, CAD, High Cholesterol, Hypertension Other Cardiovascular History: peripheral edema Respiratory History: Reports: PE, SOB, Other (See Below) Other Respiratory History: lung nodules Gastrointestinal History: Reports: Bowel Obstruction, Colon Polyp, Diverticulosis, Gastritis, GERD, Helicobacter Pylori, Hiatal Hernia Other Gastrointestinal History: esophagitis Genitourinary History: Reports: Prostate Disorder [employer]CTION [employer]PERINTENDENT History: Reports: None Musculoskeletal History: Reports: Osteoarthritis Other Musculoskeletal History: restless leg syndrome Neurological History: Reports: TIA, Other (See Below) Other Neuro History: Tremor that started with recent chemo treatments. Psychiatric History: Reports: None Endocrine/Metabolic History: Reports: None Hematologic History: Reports: Anemia Immunologic History: Reports: None Oncologic (Cancer) History: Reports: Metastatic, Prostate Other Oncologic History: prostate ca with mets to bone, bone marrow biopsy. Initial diagnosis of prostate cancer was approximately 2013 and initial treatment was cesium seed implants. Dermatologic History: Reports: Melanoma Other Dermatologic History: removal of melanoma - Infectious Disease History Infectious Disease History: Reports: Chicken Pox, Measles, Mumps, Shingles - Past Surgical History HEENT Surgical History: Reports: None Cardiovascular Surgical History: Reports: None Respiratory Surgical History: Reports: None GI Surgical History: Reports: Colonoscopy, EGD, Other (See Below) Other GI Surgeries/Procedures: Bowel resection Male Surgical History: Reports: None Neurological Surgical History: Reports: None Other Musculoskeletal Surgeries/Procedures:: osteoarthritis of left shoulder Social & Family History - Family History Family Medical History: Noncontributory HEENT: Reports: Hearing Impairment Other HEENT Family History: Mother Cardiac: Reports: Heart Failure, Pacemaker Other Cardiac Family History: brother-pacemaker. mother- HF Respiratory: Reports: None GI: Reports: None Musculoskeletal: Reports: Arthritis Neurological: Reports: Alzheimers Disease Other Neurological Family History: Dad-alzheimer's Psychiatric: Reports: None - Tobacco Use Tobacco Use Status *Q: Former Tobacco User Years of Tobacco use: 10 Packs/Tins Daily: 1 Used Tobacco, but Quit: Yes Month/Year Tobacco Last Used: 10/1969 Second Hand Smoke Exposure: No - Caffeine Use Caffeine Use: Reports: Coffee Other Caffeine Use: Drinks 3-4 cups every morning - Recreational Drug Use Recreational Drug Use: No - Living Situation & Occupation Living situation: Reports: Occupation: Retired H&P Review of Systems - Review of Systems: Review Of Systems: See Below General: Reports: Malaise, Weakness HEENT: Reports: No Symptoms Pulmonary: Reports: No Symptoms Cardiovascular: Reports: No Symptoms Gastrointestinal: Reports: Diarrhea, Decreased Appetite, Nausea, Vomiting Genitourinary: Reports: No Symptoms Musculoskeletal: Reports: Back Pain (Metastatic cancer), Leg Pain (Restless leg syndrome), Other (Rib pain from falling) Skin: Reports: No Symptoms Psychiatric: Reports: No Symptoms Neurological: Reports: No Symptoms Exam - Exam Exam: See Below - Vital Signs Vital Signs: Last Vital Signs Temp 98.2 F 08/20/20 11:01 Pulse 62 08/20/20 11:01 Resp 20 08/20/20 11:01 BP 111/74 08/20/20 11:01 Pulse Ox 97 08/20/20 11:01 Weight: 179 lb - Exam Quality Assessment: DVT Prophylaxis (mago leon, pt takes eliquis). No: Supplemental Oxygen General: Alert, Oriented, Cooperative HEENT: Conjunctiva Clear, EACs Clear, Pupils Equal, Pupils Reactive. No: Mucosa Moist & [place] (dry) Neck: Supple, Trachea Midline. No: Lymphadenopathy Lungs: Clear to Auscultation, Normal Respiratory Effort Cardiovascular: Regular Rate, Regular Rhythm, Normal S1, Normal S2 GI/Abdominal Exam: Normal Bowel Sounds, Soft, Non-Tender, No Distention (Male) Exam: Deferred Rectal (Males) Exam: Deferred Back Exam: Vertebral Tenderness Extremities: Normal Inspection, Normal Range of Motion, Non-Tender, Normal Capillary Refill, Pedal Edema Peripheral Pulses: 1+: Dorsalis Pedis (L), Dorsalis Pedis (R), 2+: Radial (L), Radial (R) Skin: Warm, Dry, Intact Neurological: Strength Equal Bilateral, Normal Speech Neuro Extensive - Mental Status: Alert, Oriented x3, Normal Mood/Affect, Normal Cognition, Memory Intact Psychiatric: Alert, Normal Affect, Normal Mood - Patient Data Lab Results Last 24 hrs: Laboratory Results - last 24 hr 08/20/20 08/20/20 08/20/20 Range/Units 07:40 07:49 07:49 WBC 7.01 (4.23-9.07) K/mm3 RBC 4.02 L (4.63-6.08) M/mm3 Hgb 10.5 L D (13.7-17.5) gm/dl Hct 32.2 L (40.1-51.0) % MCV 80.1 D (79.0-92.2) fl MCH 26.1 (25.7-32.2) pg MCHC 32.6 (32.2-35.5) g/dl RDW Std Deviation 46.9 H (35.1-43.9) fL Plt Count 197 (163-337) K/mm3 MPV 10.2 (9.4-12.3) fl Neut % (Auto) 77.2 H (34.0-67.9) % Lymph % (Auto) 18.5 L (21.8-53.1) % [place] % (Auto) 1.9 L (5.3-12.2) % Eos % (Auto) 0 L (0.8-7.0) Baso % (Auto) 1.3 H (0.1-1.2) % Neut # (Auto) 5.41 H (1.78-5.38) K/mm3 Lymph # (Auto) 1.30 L (1.32-3.57) K/mm3 [place] # (Auto) 0.13 L (0.30-0.82) K/mm3 Eos # (Auto) 0.00 L (0.04-0.54) K/mm3 Baso # (Auto) 0.09 H (0.01-0.08) K/mm3 ESR (0-15) mm/hr PT 11.4 (9.7-12.0) SECONDS INR 1.07 APTT 28.5 (21.7-31.4) SECONDS Sodium (136-145) mEq/L Potassium (3.5-5.1) mEq/L Chloride (98-107) mEq/L Carbon Dioxide (21-32) mEq/L Anion Gap (5-15) BUN (7-18) mg/dL Creatinine (0.7-1.3) mg/dL Est Cr Clr Drug Dosing mL/min Estimated GFR (MDRD) (>60) mL/min BUN/Creatinine Ratio (14-18) Glucose (83-115) mg/dL Lactic Acid (0.4-2.0) mmol/L Calcium (8.5-10.1) mg/dL Magnesium (1.8-2.4) mg/dl Total Bilirubin (0.2-1.0) mg/dL AST (15-37) U/L ALT (16-63) U/L Alkaline Phosphatase (46-116) U/L Troponin I (0.00-0.056) ng/mL C-Reactive Protein (<1.0) mg/dL NT-Pro-B Natriuret Pep (0-450) pg/mL Total Protein (6.4-8.2) g/dl Albumin (3.4-5.0) g/dl Globulin gm/dL Albumin/Globulin Ratio (1-2) Lipase (73-393) U/L Urine Color (Yellow) Urine Appearance (Clear) Urine pH (5.0-8.0) Ur Specific [place] (1.005-1.030) Urine Protein (Negative) Urine Glucose (UA) (Negative) Urine Ketones (Negative) Urine Occult Blood (Negative) Urine Nitrite (Negative) Urine Bilirubin (Negative) Urine Urobilinogen (0.2-1.0) Ur Leukocyte Esterase (Negative) U Hyaline Cast (Auto) (0-5) /lpf Urine RBC (0-5) /hpf Urine WBC (0-5) /hpf Ur Epithelial Cells (0-5) /hpf Urine Bacteria (FEW) /hpf Urine Mucus (FEW) /hpf SARS-CoV-2 RNA (ANNE) Negative (NEGATIVE) 08/20/20 08/20/20 08/20/20 Range/Units 07:49 07:49 07:49 WBC (4.23-9.07) K/mm3 RBC (4.63-6.08) M/mm3 Hgb (13.7-17.5) gm/dl Hct (40.1-51.0) % MCV (79.0-92.2) fl MCH (25.7-32.2) pg MCHC (32.2-35.5) g/dl RDW Std Deviation (35.1-43.9) fL Plt Count (163-337) K/mm3 MPV (9.4-12.3) fl Neut % (Auto) (34.0-67.9) % Lymph % (Auto) (21.8-53.1) % [place] % (Auto) (5.3-12.2) % Eos % (Auto) (0.8-7.0) Baso % (Auto) (0.1-1.2) % Neut # (Auto) (1.78-5.38) K/mm3 Lymph # (Auto) (1.32-3.57) K/mm3 [place] # (Auto) (0.30-0.82) K/mm3 Eos # (Auto) (0.04-0.54) K/mm3 Baso # (Auto) (0.01-0.08) K/mm3 ESR 13 (0-15) mm/hr PT (9.7-12.0) SECONDS INR APTT (21.7-31.4) SECONDS Sodium 133 L (136-145) mEq/L Potassium 3.7 (3.5-5.1) mEq/L Chloride 98 (98-107) mEq/L Carbon Dioxide 24 (21-32) mEq/L Anion Gap 14.7 (5-15) BUN 21 H (7-18) mg/dL Creatinine 1.1 (0.7-1.3) mg/dL Est Cr Clr Drug Dosing 55.14 mL/min Estimated GFR (MDRD) > 60 (>60) mL/min BUN/Creatinine Ratio 19.1 H (14-18) Glucose 201 H (83-115) mg/dL Lactic Acid (0.4-2.0) mmol/L Calcium 7.5 L D (8.5-10.1) mg/dL Magnesium 2.7 H (1.8-2.4) mg/dl Total Bilirubin 0.9 (0.2-1.0) mg/dL AST 19 (15-37) U/L ALT 22 (16-63) U/L Alkaline Phosphatase 106 (46-116) U/L Troponin I < 0.017 (0.00-0.056) ng/mL C-Reactive Protein 3.4 H* (<1.0) mg/dL NT-Pro-B Natriuret Pep 229 (0-450) pg/mL Total Protein 5.9 L (6.4-8.2) g/dl Albumin 3.0 L (3.4-5.0) g/dl Globulin 2.9 gm/dL Albumin/Globulin Ratio 1.0 (1-2) Lipase (73-393) U/L Urine Color (Yellow) Urine Appearance (Clear) Urine pH (5.0-8.0) Ur Specific [place] (1.005-1.030) Urine Protein (Negative) Urine Glucose (UA) (Negative) Urine Ketones (Negative) Urine Occult Blood (Negative) Urine Nitrite (Negative) Urine Bilirubin (Negative) Urine Urobilinogen (0.2-1.0) Ur Leukocyte Esterase (Negative) U Hyaline Cast (Auto) (0-5) /lpf Urine RBC (0-5) /hpf Urine WBC (0-5) /hpf Ur Epithelial Cells (0-5) /hpf Urine Bacteria (FEW) /hpf Urine Mucus (FEW) /hpf SARS-CoV-2 RNA (ANNE) (NEGATIVE) 08/20/20 08/20/20 08/20/20 Range/Units 07:49 07:49 08:15 WBC (4.23-9.07) K/mm3 RBC (4.63-6.08) M/mm3 Hgb (13.7-17.5) gm/dl Hct (40.1-51.0) % MCV (79.0-92.2) fl MCH (25.7-32.2) pg MCHC (32.2-35.5) g/dl RDW Std Deviation (35.1-43.9) fL Plt Count (163-337) K/mm3 MPV (9.4-12.3) fl Neut % (Auto) (34.0-67.9) % Lymph % (Auto) (21.8-53.1) % [place] % (Auto) (5.3-12.2) % Eos % (Auto) (0.8-7.0) Baso % (Auto) (0.1-1.2) % Neut # (Auto) (1.78-5.38) K/mm3 Lymph # (Auto) (1.32-3.57) K/mm3 [place] # (Auto) (0.30-0.82) K/mm3 Eos # (Auto) (0.04-0.54) K/mm3 Baso # (Auto) (0.01-0.08) K/mm3 ESR (0-15) mm/hr PT (9.7-12.0) SECONDS INR APTT (21.7-31.4) SECONDS Sodium (136-145) mEq/L Potassium (3.5-5.1) mEq/L Chloride (98-107) mEq/L Carbon Dioxide (21-32) mEq/L Anion Gap (5-15) BUN (7-18) mg/dL Creatinine (0.7-1.3) mg/dL Est Cr Clr Drug Dosing mL/min Estimated GFR (MDRD) (>60) mL/min BUN/Creatinine Ratio (14-18) Glucose (83-115) mg/dL Lactic Acid 2.2 H* (0.4-2.0) mmol/L Calcium (8.5-10.1) mg/dL Magnesium (1.8-2.4) mg/dl Total Bilirubin (0.2-1.0) mg/dL AST (15-37) U/L ALT (16-63) U/L Alkaline Phosphatase (46-116) U/L Troponin I (0.00-0.056) ng/mL C-Reactive Protein (<1.0) mg/dL NT-Pro-B Natriuret Pep (0-450) pg/mL Total Protein (6.4-8.2) g/dl Albumin (3.4-5.0) g/dl Globulin gm/dL Albumin/Globulin Ratio (1-2) Lipase 28 L (73-393) U/L Urine Color Dark yellow (Yellow) Urine Appearance Slt cloudy H (Clear) Urine pH 7.5 (5.0-8.0) Ur Specific [place] 1.025 (1.005-1.030) Urine Protein 2+ H (Negative) Urine Glucose (UA) Negative (Negative) Urine Ketones Trace H (Negative) Urine Occult Blood Negative (Negative) Urine Nitrite Negative (Negative) Urine Bilirubin Negative (Negative) Urine Urobilinogen 1.0 (0.2-1.0) Ur Leukocyte Esterase Negative (Negative) U Hyaline Cast (Auto) 0-5 (0-5) /lpf Urine RBC 0-5 (0-5) /hpf Urine WBC 0-5 (0-5) /hpf Ur Epithelial Cells Not seen (0-5) /hpf Urine Bacteria Few (FEW) /hpf Urine Mucus Few (FEW) /hpf SARS-CoV-2 RNA (ANNE) (NEGATIVE) 08/20/20 Range/Units 11:06 WBC (4.23-9.07) K/mm3 RBC (4.63-6.08) M/mm3 Hgb (13.7-17.5) gm/dl Hct (40.1-51.0) % MCV (79.0-92.2) fl MCH (25.7-32.2) pg MCHC (32.2-35.5) g/dl RDW Std Deviation (35.1-43.9) fL Plt Count (163-337) K/mm3 MPV (9.4-12.3) fl Neut % (Auto) (34.0-67.9) % Lymph % (Auto) (21.8-53.1) % [place] % (Auto) (5.3-12.2) % Eos % (Auto) (0.8-7.0) Baso % (Auto) (0.1-1.2) % Neut # (Auto) (1.78-5.38) K/mm3 Lymph # (Auto) (1.32-3.57) K/mm3 [place] # (Auto) (0.30-0.82) K/mm3 Eos # (Auto) (0.04-0.54) K/mm3 Baso # (Auto) (0.01-0.08) K/mm3 ESR (0-15) mm/hr PT (9.7-12.0) SECONDS INR APTT (21.7-31.4) SECONDS Sodium (136-145) mEq/L Potassium (3.5-5.1) mEq/L Chloride (98-107) mEq/L Carbon Dioxide (21-32) mEq/L Anion Gap (5-15) BUN (7-18) mg/dL Creatinine (0.7-1.3) mg/dL Est Cr Clr Drug Dosing mL/min Estimated GFR (MDRD) (>60) mL/min BUN/Creatinine Ratio (14-18) Glucose (83-115) mg/dL Lactic Acid 1.4 (0.4-2.0) mmol/L Calcium (8.5-10.1) mg/dL Magnesium (1.8-2.4) mg/dl Total Bilirubin (0.2-1.0) mg/dL AST (15-37) U/L ALT (16-63) U/L Alkaline Phosphatase (46-116) U/L Troponin I (0.00-0.056) ng/mL C-Reactive Protein (<1.0) mg/dL NT-Pro-B Natriuret Pep (0-450) pg/mL Total Protein (6.4-8.2) g/dl Albumin (3.4-5.0) g/dl Globulin gm/dL Albumin/Globulin Ratio (1-2) Lipase (73-393) U/L Urine Color (Yellow) Urine Appearance (Clear) Urine pH (5.0-8.0) Ur Specific [place] (1.005-1.030) Urine Protein (Negative) Urine Glucose (UA) (Negative) Urine Ketones (Negative) Urine Occult Blood (Negative) Urine Nitrite (Negative) Urine Bilirubin (Negative) Urine Urobilinogen (0.2-1.0) Ur Leukocyte Esterase (Negative) U Hyaline Cast (Auto) (0-5) /lpf Urine RBC (0-5) /hpf Urine WBC (0-5) /hpf Ur Epithelial Cells (0-5) /hpf Urine Bacteria (FEW) /hpf Urine Mucus (FEW) /hpf SARS-CoV-2 RNA (ANNE) (NEGATIVE) Result Diagrams: 08/20/20 07:49 08/20/20 07:49 Sepsis Event Note - Evaluation Sepsis Screening Result: No Definite Risk - Focused Exam Vital Signs: Vital Signs Temp Temp Pulse Pulse Resp BP BP 08/20/20 11:01 98.2 F 62 20 111/74 08/20/20 10:55 97.8 F 68 18 92/47 L 08/20/20 06:57 98.2 F 72 16 90/44 L Pulse Ox 08/20/20 11:01 97 08/20/20 10:55 99 08/20/20 06:57 100 - Problem List (1) Adenocarcinoma of prostate, stage 4 SNOMED Code(s): 938753219, 071910511 ICD Code: C61 - MALIGNANT NEOPLASM OF PROSTATE Status: Acute Priority: Medium Current Visit: Yes (2) Adverse effect of chemotherapy SNOMED Code(s): 461952815 ICD Code: T45.1X5A - ADVERSE EFFECT OF ANTINEOPLASTIC AND IMMUNOSUP DRUGS, INIT Status: Acute Priority: High Current Visit: Yes Qualifiers: Encounter type: initial encounter Qualified Code(s): T45.1X5A - Adverse effect of antineoplastic and immunosuppressive drugs, initial encounter (3) Intractable nausea and vomiting SNOMED Code(s): 625103089 ICD Code: R11.2 - NAUSEA WITH VOMITING, UNSPECIFIED Status: Acute Priority: High Current Visit: Yes (4) Severe diarrhea SNOMED Code(s): 975200607 ICD Code: K52.9 - NONINFECTIVE GASTROENTERITIS AND COLITIS, UNSPECIFIED Status: Acute Priority: High Current Visit: Yes (5) Vomiting SNOMED Code(s): 929463745 ICD Code: R11.10 - VOMITING, UNSPECIFIED Status: Acute Priority: High Current Visit: Yes Qualifiers: Vomiting type: bilious vomiting Nausea presence: with nausea Qualified Code(s): R11.14 - Bilious vomiting Problem List Initiated/Reviewed/Updated: Yes Orders Last 24hrs: Active Orders 24 hr Category Date Time Status Admission Status [Patient Status] [ADT] Routine ADT 08/20/20 10:18 Active Patient Status [ADT] Routine ADT 08/20/20 10:41 Active Antiembolic Devices [RC] PER UNIT ROUTINE Care 08/20/20 10:52 Active Blood Glucose Check, Bedside [RC] ONETIME Care 08/20/20 07:15 Active Height and Weight [RC] 04 Care 08/20/20 10:40 Active Insert Ruano Catheter [Insert Urinary Catheter] [OM.PC] Care 08/20/20 08:15 Ordered Stat Intake and Output [RC] 04,16 Care 08/20/20 10:47 Active Oxygen Therapy [RC] PRN Care 08/20/20 10:41 Active Up With Assistance [RC] ASDIRECTED Care 08/20/20 10:40 Active VTE/DVT Education [RC] PER UNIT ROUTINE Care 08/20/20 10:41 Active Vital Signs [RC] Q4HR Care 08/20/20 10:41 Active Consult to Case Management/Buffer Copper [CONS] Cons 08/20/20 10:40 Active Routine OT Evaluation and Treatment [CONS] Routine Cons 08/20/20 10:40 Active PT Evaluation and Treatment [CONS] Routine Cons 08/20/20 10:40 Active [place] Diet [DIET] Diet 08/20/20 Lunch Active Cervical Spine wo Cont [CT] Stat Exams 08/20/20 07:36 Taken Chest wo Cont [CT] Stat Exams 08/20/20 07:39 Taken Head wo Cont [CT] Stat Exams 08/20/20 07:35 Taken CBC WITH AUTO DIFF [HEME] AM Lab 08/21/20 05:11 Ordered COMPREHENSIVE METABOLIC PN,CMP [CHEM] AM Lab 08/21/20 05:11 Ordered CULTURE BLOOD [BC] Stat Lab 08/20/20 07:49 Received CULTURE BLOOD [BC] Stat Lab 08/20/20 08:04 Received MAGNESIUM [CHEM] AM Lab 08/21/20 05:11 Ordered PHOSPHORUS [CHEM] AM Lab 08/21/20 05:11 Ordered Acetaminophen [TylenoL] Med 08/20/20 10:40 Active 650 mg PO Q4H PRN Dextrose 5%-0.9% NaCl [Dextrose 5%-Normal Saline] 1,000 Med 08/20/20 07:30 Active ml IV ASDIRECTED HYDROmorphone [Dilaudid] Med 08/20/20 10:40 Active 0.25 mg IVPUSH Q2H PRN Lactated Ringers [Ringers, Lactated] 1,000 ml Med 08/20/20 10:15 Active IV ASDIRECTED Ondansetron [Zofran] Med 08/20/20 10:40 Active 4 mg IV Q4H PRN oxyCODONE Med 08/20/20 10:40 Active 5 mg PO Q4H PRN Antiembolic Hose [OM.PC] Per Unit Routine Ot 08/20/20 10:48 Ordered Blood Culture x2 Reflex Set [OM.PC] Stat Ot 08/20/20 07:16 Ordered Medication Orders Acetaminophen (Tylenol) 650 mg PO Q4H PRN PRN Reason: Pain (Mild 1-3)/fever Hydromorphone HCl (Dilaudid) 0.25 mg IVPUSH Q2H PRN PRN Reason: Pain (severe 7-10) Dextrose/Sodium Chloride (Dextrose 5%-Normal Saline) 1,000 mls @ 999 mls/hr IV ASDIRECTED [facility] Last Admin: 08/20/20 07:37 Dose: 999 mls/hr Documented by: LYNN Lactated Ringer's (Ringers, Lactated) 1,000 mls @ 75 mls/hr IV ASDIRECTED [facility] Last Admin: 08/20/20 09:50 Dose: 75 mls/hr Documented by: LYNN Ondansetron HCl (Zofran) 4 mg IV Q4H PRN PRN Reason: Nausea/Vomiting Oxycodone HCl (Oxycodone) 5 mg PO Q4H PRN PRN Reason: Pain (moderate 4-6) Assessment/Plan Comment:: 08/20/20 * Severe vomiting and diarrhea that started last evening. * History of metastatic prostate cancer stage IV currently being treated with chemotherapy which causes significant nausea and diarrhea with each treatment. * Near syncopal episode that occurred this morning due to volume loss, resulting in a fall and trauma to his ribs. * Poor appetite for the last 2-1/2 days. * Currently takes Eliquis twice a day due to a history of PE and DVTs. * Labs reveal a white count of 7.01, hemoglobin of 10.5, sodium 133, potassium 3.7, BUN 21, creatinine 1.1, GFR greater than 60, lactic acid 2.2, repeat lactic acid 1.4, Troponin less than 0.017, C-reactive protein 3.4, BNP 229, urinalysis was unremarkable for infection. * CT of the chest done without contrast reveals no obvious rib fractures or pulmonary contusion. There is no pneumothorax. Mild changes of emphysema with scarring in the lung apices right worse than the left. Calcified granuloma right middle lobe of lung. Mild cardiomegaly. Indwelling left central venous catheter with tip in the superior vena cava. There is evidence of diffuse sclerotic skeletal metastases which have progressed since 05/11/2017. No fractures are identified degenerative arthritis throughout the thoracic spine diffuse atherosclerosis of the thoracic and abdominal aorta without any aneurysmal change. Visualized portions of the upper abdomen reveal liver to have fatty infiltration. Gallbladder does not reveal any calcified gallstones. Stomach appears normal. Spleen is slightly enlarged. Kidneys are atrophic bilaterally without any obvious stones. No signs of urinary tract obstruction. CT scans of the brain reveal no skull fractures. No intracranial bleeding or mass-effect. Diffuse small vessel ischemic change appreciated both basal ganglia. No evidence of infarct identified. There is some motion artifact on the CT. PLAN: * Patient for observation status * Lactated Ringer's at 75 mL's per hour. We will continue at this rate as patient has a history of congestive heart failure and I do not want to overload him. * Patient takes Eliquis we will continue this for DVT prophylaxis and order MAGO stockings as he does wear these at home as well. * Pain management as patient does have chronic back pain due to metastatic cancer and restless leg syndrome. * micrographics services supervisor to consult for discharge planning * Dietary to consult. * PT/OT eval and treat. * Benadryl for nausea/vomiting - Mortality Measure Prognosis:: Good
[2020-08-20] MEDS ORDERED: diphenhydrAMINE 50 MG/ML SDV IVPUSH PRN (13:18)
[2020-08-20] MEDS ORDERED: traMADol 50 MG Tab PO PRN ×2 (14:50)
[2020-08-20] MEDS ORDERED: Famotidine 20 MG Tab PO PRN (14:50)
[2020-08-20] MEDS ORDERED: NITROGLYCERIN 0.6 MG SL PRN (14:50)
[2020-08-20] MEDS ORDERED: PROCHLORPERAZINE 10 MG PO PRN (14:50)
[2020-08-20] MEDS: HYDROmorphone 0.5 MG/0.5 ML Syringe IVPUSH PRN (15:20)
[2020-08-20] MEDS: oxyCODONE 5 MG Tab PO PRN ×2 (15:20→20:34)
[2020-08-20] MEDS ORDERED: Pramipexole 0.25 MG Tab PO SCH (22:00)
[2020-08-20] MEDS: Apixaban 5 MG Tab PO SCH (22:32)
[2020-08-20] MEDS: predniSONE 5 MG Tab PO SCH (22:32)
[2020-08-21] MEDS: oxyCODONE 5 MG Tab PO PRN (00:36)
[2020-08-21] MEDS ORDERED: Nitroglycerin 0.4 MG Tab.SL SL PRN (07:22)
[2020-08-21] MEDS ORDERED: Morphine 2 MG/ML SYRINGE IVPUSH ONE (08:17)
[2020-08-21] MEDS: Potassium Chloride 10 MEQ in Premix Bag 1 BAG IV SCH ×6 (08:33→21:06)
[2020-08-21] MEDS ORDERED: Sodium Chloride 0.9% 1,000 ML IV ONE (08:37)
[2020-08-21] MEDS ORDERED: Sodium Chloride 0.9% 1,000 ML ONE (08:39)
[2020-08-21] MEDS: Apixaban 5 MG Tab PO SCH (08:49)
[2020-08-21] MEDS: predniSONE 5 MG Tab PO SCH (08:49)
[2020-08-21] MEDS ORDERED: Sodium Chloride 0.9% 10 ML Syringe FLUSH PRN (09:18)
[2020-08-21] MEDS ORDERED: Diatrizoate Meglumine/Diatrizoate Sodium 37% 120 ML Bottle PO ONE (09:18)
[2020-08-21] MEDS ORDERED: Iopamidol 612 MG/ML 100 ML Bottle IVPUSH ONE (09:18)
[2020-08-21] MEDS ORDERED: Iopamidol 755 Mg/ML 100 ML Bottle IVPUSH ONE (09:29)
[2020-08-21] MEDS ORDERED: Sodium Chloride 0.9% 100 ML IV SCH (09:30)
[2020-08-21] MEDS ORDERED: Iopamidol 755 MG/ML 50 ML Bottle IVPUSH ONE (09:36)
--- NOTE | 2020-08-21 11:57 | PCM.PN ---
- General Info Date of Service: 08/21/20 Admission Dx/Problem (Free Text): Admission Diagnosis/Problem Admission Diagnosis/Problem Nausea and vomiting Subjective Update: Developed chest pain this morning and upper abdominal pain. States it is the most severe pain he has ever had. Functional Status: Reports: Urinating. Denies: Pain Controlled (Severe chest pain and upper abdominal pain.), Ambulating - Review of Systems General: Reports: Weakness HEENT: Reports: No Symptoms Pulmonary: Reports: No Symptoms Cardiovascular: Reports: Chest Pain. Denies: Edema Gastrointestinal: Reports: Abdominal Pain (Right upper quadrant abdominal pain). Denies: Nausea, Vomiting Genitourinary: Reports: No Symptoms Musculoskeletal: Reports: No Symptoms Skin: Reports: No Symptoms Neurological: Reports: No Symptoms Psychiatric: Reports: No Symptoms - Patient Data Vitals - Most Recent: Last Vital Signs Temp 98.2 F 08/21/20 04:38 Pulse 71 08/21/20 08:23 Resp 16 08/21/20 04:38 BP 160/65 H 08/21/20 08:34 Pulse Ox 99 08/21/20 08:23 Weight - Most Recent: 173 lb 9.6 oz I&O - Last 24 Hours: Intake & Output 08/20/20 08/21/20 08/21/20 22:59 06:59 14:59 Intake Total 280 1100 Output Total 1000 2300 Balance -720 -1200 Lab Results Last 24 Hours: Laboratory Results - last 24 hr 08/21/20 08/21/20 08/21/20 Range/Units 05:27 05:27 08:21 WBC 2.88 L (4.23-9.07) K/mm3 RBC 3.80 L (4.63-6.08) M/mm3 Hgb 9.8 L (13.7-17.5) gm/dl Hct 30.9 L (40.1-51.0) % MCV 81.3 (79.0-92.2) fl MCH 25.8 (25.7-32.2) pg MCHC 31.7 L (32.2-35.5) g/dl RDW Std Deviation 48.2 H (35.1-43.9) fL Plt Count 184 (163-337) K/mm3 MPV 10.6 (9.4-12.3) fl Neut % (Auto) 52.4 (34.0-67.9) % Lymph % (Auto) 38.9 (21.8-53.1) % [place] % (Auto) 4.2 L (5.3-12.2) % Eos % (Auto) 1.4 (0.8-7.0) Baso % (Auto) 1.7 H (0.1-1.2) % Neut # (Auto) 1.51 L (1.78-5.38) K/mm3 Lymph # (Auto) 1.12 L (1.32-3.57) K/mm3 [place] # (Auto) 0.12 L (0.30-0.82) K/mm3 Eos # (Auto) 0.04 (0.04-0.54) K/mm3 Baso # (Auto) 0.05 (0.01-0.08) K/mm3 Manual Slide Review Abnormal smear Sodium 136 (136-145) mEq/L Potassium 3.1 L (3.5-5.1) mEq/L Chloride 103 (98-107) mEq/L Carbon Dioxide 26 (21-32) mEq/L Anion Gap 10.1 (5-15) BUN 15 (7-18) mg/dL Creatinine 0.7 (0.7-1.3) mg/dL Est Cr Clr Drug Dosing 86.30 mL/min Estimated GFR (MDRD) > 60 (>60) mL/min BUN/Creatinine Ratio 21.4 H (14-18) Glucose 110 (83-115) mg/dL Calcium 7.4 L (8.5-10.1) mg/dL Phosphorus 2.0 L (2.6-4.7) mg/dL Magnesium 2.5 H (1.8-2.4) mg/dl Total Bilirubin 0.7 (0.2-1.0) mg/dL AST 15 (15-37) U/L ALT 22 (16-63) U/L Alkaline Phosphatase 88 (46-116) U/L Troponin I < 0.017 (0.00-0.056) ng/mL Total Protein 5.6 L (6.4-8.2) g/dl Albumin 2.7 L (3.4-5.0) g/dl Globulin 2.9 gm/dL Albumin/Globulin Ratio 0.9 L (1-2) Wu Results Last 24 Hours: Microbiology 10/28/20 08:04 Aerobic Blood Culture - Preliminary Blood - Venous - Lab Draw NO GROWTH AFTER 1 DAY Anaerobic Blood Culture - Preliminary NO GROWTH AFTER 1 DAY 08/20/20 07:49 Aerobic Blood Culture - Preliminary Blood - Venous NO GROWTH AFTER 1 DAY Anaerobic Blood Culture - Preliminary NO GROWTH AFTER 1 DAY Med Orders - Current: Current Medications Acetaminophen (Tylenol) 650 mg PO Q4H PRN PRN Reason: Pain (Mild 1-3)/fever Amlodipine Besylate (Norvasc) 5 mg PO DAILY [facility] Apixaban (Eliquis) 5 mg PO BID [facility] Last Admin: 08/21/20 08:49 Dose: 5 mg Documented by: Diphenhydramine HCl (Benadryl) 25 mg IVPUSH Q4H PRN PRN Reason: Nausea/Vomiting Famotidine (Pepcid) 20 mg PO BEDTIME PRN PRN Reason: Heartburn Hydrochlorothiazide (Hydrochlorothiazide) 25 mg PO DAILY [facility] Hydromorphone HCl (Dilaudid) 0.25 mg IVPUSH Q2H PRN PRN Reason: Pain (severe 7-10) Last Admin: 08/20/20 15:20 Dose: 0.25 mg Documented by: Dextrose/Sodium Chloride (Dextrose 5%-Normal Saline) 1,000 mls @ 999 mls/hr IV ASDIRECTED [facility] Last Admin: 08/20/20 07:37 Dose: 999 mls/hr Documented by: Lactated Ringer's (Ringers, Lactated) 1,000 mls @ 75 mls/hr IV ASDIRECTED [facility] Last Admin: 08/20/20 09:50 Dose: 75 mls/hr Documented by: Potassium Chloride 10 meq/ (Premix) 100 mls @ 100 mls/hr IV Q1H [facility] Stop: 08/21/20 13:59 Last Admin: 08/21/20 08:33 Dose: 100 mls/hr Documented by: Sodium Chloride (Normal Saline) 1,000 mls @ 50 mls/hr IV ONETIME ONE Stop: 08/22/20 04:36 Last Admin: 08/21/20 10:04 Dose: 50 mls/hr Documented by: Sodium Chloride (Normal Saline) 100 mls @ 75 mls/hr IV ASDIRECTED [facility] Stop: 08/21/20 13:00 Last Admin: 08/21/20 10:47 Dose: 75 mls/hr Documented by: Losartan Potassium (Cozaar) 100 mg PO DAILY [facility] Magnesium Oxide (Magnesium Oxide) 400 mg PO DAILY [facility] Nitroglycerin (Nitrostat) 0.4 mg SL ASDIRECTED PRN PRN Reason: Chest Pain Last Admin: 08/21/20 08:34 Dose: 0.4 mg Documented by: Non-Formulary Medication (Pravastatin) 40 mg PO DAILY [facility] Non-Formulary Medication (Prochlorperazine) 10 mg PO QID PRN PRN Reason: Nausea Oxycodone HCl (Oxycodone) 5 mg PO Q4H PRN PRN Reason: Pain (moderate 4-6) Last Admin: 08/21/20 00:36 Dose: 5 mg Documented by: Potassium Chloride (Klor-Con 10) 10 meq PO Q48H [facility] Pramipexole Dihydrochloride (Mirapex) 0.75 mg PO BEDTIME [facility] Last Admin: 08/20/20 22:31 Dose: 0.75 mg Documented by: Prednisone (Prednisone) 5 mg PO BID [facility] Last Admin: 08/21/20 08:49 Dose: 5 mg Documented by: Sodium Chloride (Saline Flush) 10 ml FLUSH ONETIME PRN PRN Reason: IV FLUSH Stop: 08/21/20 13:00 Last Admin: 08/21/20 10:47 Dose: 10 ml Documented by: Tramadol HCl (Ultram) 25 - 50 mg PO TID PRN PRN Reason: Severe Pain Tramadol HCl (Ultram) 50 mg PO TID PRN PRN Reason: Moderate Pain Discontinued Medications Diatrizoate Meglum/Diatrizoate Sod (Gastrografin 37%) 120 ml PO ONETIME ONE Stop: 08/21/20 09:19 Last Admin: 08/21/20 10:47 Dose: 45 ml Documented by: Hydromorphone HCl (Dilaudid) 0.5 mg IVPUSH ONETIME ONE Stop: 08/20/20 07:20 Last Admin: 08/20/20 07:33 Dose: 0.5 mg Documented by: Hydromorphone HCl (Dilaudid) 0.5 mg IVPUSH ONETIME ONE Stop: 08/20/20 09:20 Last Admin: 08/20/20 09:25 Dose: 0.5 mg Documented by: Sodium Chloride (Normal Saline) Confirm Administered Dose 1,000 mls @ as directed .ROUTE .STK-MED ONE Stop: 08/21/20 08:40 Last Admin: 08/21/20 09:47 Dose: Not Given Documented by: Iopamidol (Isovue-370 (76%)) 100 ml IVPUSH ONETIME ONE Stop: 08/21/20 09:30 Last Admin: 08/21/20 10:47 Dose: 100 ml Documented by: Iopamidol (Isovue-370 (76%)) 50 ml IVPUSH ONETIME ONE Stop: 08/21/20 09:37 Last Admin: 08/21/20 10:47 Dose: 50 ml Documented by: Metoclopramide HCl (Reglan) 7.5 mg IVPUSH ONETIME ONE Stop: 08/20/20 07:19 Last Admin: 08/20/20 07:30 Dose: 7.5 mg Documented by: Morphine Sulfate (Morphine) 2 mg IVPUSH ONETIME ONE Stop: 08/21/20 08:18 Non-Formulary Medication (Nitroglycerin [Nitroglycerin]) 0.6 mg SL ASDIRECTED PRN PRN Reason: Chest Pain Ondansetron HCl (Zofran) 4 mg IV Q4H PRN PRN Reason: Nausea/Vomiting Pramipexole Dihydrochloride (Mirapex) 0.5 mg PO ONETIME ONE Stop: 08/20/20 09:19 Last Admin: 08/20/20 09:30 Dose: 0.5 mg Documented by: - Exam Quality Assessment: DVT Prophylaxis (Takes Eliquis twice a day). No: Supplemental Oxygen General: Alert, Oriented, Cooperative HEENT: Pupils Equal, Pupils Reactive, Mucous Membr. Moist/[place] Neck: Supple, Trachea Midline. No: Lymphadenopathy Lungs: Clear to Auscultation, Normal Respiratory Effort Cardiovascular: Regular Rate, Regular Rhythm, No Murmurs GI/Abdominal Exam: Normal Bowel Sounds, Soft, Non-Tender, No Distention (Male) Exam: Deferred Back Exam: Normal Inspection, Full Range of Motion Extremities: Normal Inspection, Normal Range of Motion, Non-Tender, No Pedal Edema, Normal Capillary Refill Peripheral Pulses: 2+: Radial (L), Radial (R), Dorsalis Pedis (L), Dorsalis Pedis (R) Skin: Warm, Dry, Intact Neurological: No New Focal Deficit Psy/Mental Status: Alert, Normal Affect, Normal Mood Sepsis Event Note - Evaluation Sepsis Screening Result: No Definite Risk - Focused Exam Vital Signs: Vital Signs Temp Pulse Resp BP Pulse Ox 08/21/20 08:34 160/65 H 08/21/20 08:23 71 156/68 H 99 08/21/20 08:20 66 120/84 100 08/21/20 04:38 98.2 F 63 16 135/80 97 08/21/20 00:30 98.1 F 60 16 124/61 98 - Problem List & Annotations (1) Adenocarcinoma of prostate, stage 4 SNOMED Code(s): 207096228, 390653279 Code(s): C61 - MALIGNANT NEOPLASM OF PROSTATE Status: Acute Priority: Medium Current Visit: Yes (2) Adverse effect of chemotherapy SNOMED Code(s): 443517264 Code(s): T45.1X5A - ADVERSE EFFECT OF ANTINEOPLASTIC AND IMMUNOSUP DRUGS, INIT Status: Acute Priority: High Current Visit: Yes Qualifiers: Encounter type: initial encounter Qualified Code(s): T45.1X5A - Adverse effect of antineoplastic and immunosuppressive drugs, initial encounter (3) Intractable nausea and vomiting SNOMED Code(s): 152627677 Code(s): R11.2 - NAUSEA WITH VOMITING, UNSPECIFIED Status: Acute Priority: High Current Visit: Yes (4) Severe diarrhea SNOMED Code(s): 765568234 Code(s): K52.9 - NONINFECTIVE GASTROENTERITIS AND COLITIS, UNSPECIFIED Status: Acute Priority: High Current Visit: Yes (5) Vomiting SNOMED Code(s): 959262455 Code(s): R11.10 - VOMITING, UNSPECIFIED Status: Acute Priority: High Current Visit: Yes Qualifiers: Vomiting type: bilious vomiting Nausea presence: with nausea Qualified Code(s): R11.14 - Bilious vomiting - Problem List Review Problem List Initiated/Reviewed/Updated: Yes - My Orders Last 24 Hours: My Active Orders 08/20/20 10:52 Antiembolic Devices [RC] BID 08/20/20 Lunch [place] Diet [DIET] 08/20/20 13:01 Consult to Sponsorship Manager [CONS] Routine 08/20/20 13:18 diphenhydrAMINE [Benadryl] 25 mg IVPUSH Q4H PRN 08/20/20 14:50 Famotidine [Pepcid] 20 mg PO BEDTIME PRN Prochlorperazine 10 mg PO QID PRN traMADol [Ultram] 25 - 50 mg PO TID PRN traMADol [Ultram] 50 mg PO TID PRN 08/20/20 22:00 Apixaban [Eliquis] 5 mg PO BID Pramipexole [Mirapex] 0.75 mg PO BEDTIME predniSONE 5 mg PO BID 08/21/20 07:22 Nitroglycerin [Nitrostat] 0.4 mg SL ASDIRECTED PRN 08/21/20 08:00 Potassium Chloride [KCl 10 MEQ in Water 100 ML] 10 meq Premix Bag 1 bag IV Q1H 08/21/20 08:13 EKG 12 Lead [EK] Stat 08/21/20 08:14 EKG Documentation Completion [RC] ASDIRECTED 08/21/20 08:32 Chest 1V Frontal [CR] Routine 08/21/20 08:35 Patient Status [ADT] Routine 08/21/20 08:37 Abdomen Pelvis w Cont [CT] Routine Sodium Chloride 0.9% [Normal Saline] 1,000 ml IV ONETIME 08/21/20 09:00 Losartan [Cozaar] 100 mg PO DAILY Magnesium Oxide 400 mg PO DAILY Potassium Chloride [Klor-Con 10] 10 meq PO Q48H Pravastatin 40 mg PO DAILY amLODIPine [Norvasc] 5 mg PO DAILY hydroCHLOROthiazide 25 mg PO DAILY 08/21/20 09:18 CTA Chest W WO Contrast [Ang Chest] [CT] Routine 08/21/20 11:30 TROPONIN I [CHEM] Timed - Assessment Assessment:: 08/21/20 On examination of patient today he was having severe chest pain and right upper quadrant abdominal pain. He states that he has had this pain in the past but never this severe. He reports that at that time he had tried to take a nitroglycerin tab but it did not help. Stat EKG, chest x-ray, troponin, and BNP were ordered. A CTA of the lungs and a CT of the abdomen were also ordered as the patient does have a history of PE and has a history of falling at home yesterday and he is taking Eliquis twice a day. Chest x-ray shows: 1 widespread blastic osseous metastatic disease. 2 no acute pulmonary findings. CTA of the chest showed: 1 extensive blastic osseous metastatic disease has progressed since April 2017. 2 no evidence of pulmonary emboli. CT of abdomen and pelvis with contrast showed: 1.9 cm complex cyst at the lower pole of the right kidney but unchanged in size since previous exam over 3 years ago. 2 mural thickening involving the distal half of the transverse colon and proximal ascending colon worrisome for segmental colitis. 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 4 mild circumferential thickening of the rectum. Twelve-lead EKG was unremarkable. This did not show any ST elevation or depression signifying an acute OK or non-STEMI. Initial troponin was less than 0.017, and repeat troponin III hours later was less than 0.017. BNP was 100.WBC 2.88 hemoglobin 9.8, Neutrophil percentage 52.4 without bands, Potassium 3.1, BUN 15, Creatinine 0.7, GFR greater than 60. - Plan Plan:: 08/20/20 * Severe vomiting and diarrhea that started last evening. * History of metastatic prostate cancer stage IV currently being treated with chemotherapy which causes significant nausea and diarrhea with each treatment. * Near syncopal episode that occurred this morning due to volume loss, resulting in a fall and trauma to his ribs. * Poor appetite for the last 2-1/2 days. * Currently takes Eliquis twice a day due to a history of PE and DVTs. * Labs reveal a white count of 7.01, hemoglobin of 10.5, sodium 133, potassium 3.7, BUN 21, creatinine 1.1, GFR greater than 60, lactic acid 2.2, repeat lactic acid 1.4, Troponin less than 0.017, C-reactive protein 3.4, BNP 229, urinalysis was unremarkable for infection. * CT of the chest done without contrast reveals no obvious rib fractures or pulmonary contusion. There is no pneumothorax. Mild changes of emphysema with scarring in the lung apices right worse than the left. Calcified granuloma right middle lobe of lung. Mild cardiomegaly. Indwelling left central venous catheter with tip in the superior vena cava. There is evidence of diffuse sclerotic skeletal metastases which have progressed since 05/11/2017. No fractures are identified degenerative arthritis throughout the thoracic spine diffuse atherosclerosis of the thoracic and abdominal aorta without any aneurysmal change. Visualized portions of the upper abdomen reveal liver to have fatty infiltration. Gallbladder does not reveal any calcified gallstones. Stomach appears normal. Spleen is slightly enlarged. Kidneys are atrophic bilaterally without any obvious stones. No signs of urinary tract obstruction. CT scans of the brain reveal no skull fractures. No intracranial bleeding or mass-effect. Diffuse small vessel ischemic change appreciated both basal ganglia. No evidence of infarct identified. There is some motion artifact on the CT. PLAN: * Patient for observation status * Lactated Ringer's at 75 mL's per hour. We will continue at this rate as patient has a history of congestive heart failure and I do not want to overload him. * Patient takes Eliquis we will continue this for DVT prophylaxis and order MAGO stockings as he does wear these at home as well. * Pain management as patient does have chronic back pain due to metastatic cancer and restless leg syndrome. * conference services director to consult for discharge planning * Dietary to consult. * PT/OT eval and treat. * Benadryl for nausea/vomiting 08/21/20 * Replace potassium IV today * Continue Eliquis for DVT prophylaxis * PT and OT to continue working with the patient * conference services director consult for discharge planning * Upon returning to discussed the patient's test results with him, he reports that he feels much better and is not having any chest pain or abdominal pain. He states that he feels this is due to the chemotherapy and the disease process, however he has never had a severe of pain as he did today. * Dietary to consult as patient does not have much of an appetite. * Plan will be to discharge the patient to home tomorrow morning.
[2020-08-21] MEDS ORDERED: Famotidine 20 MG Tab **PTOM PO PRN (13:12)
[2020-08-21] MEDS ORDERED: TIZANIDINE 2 MG PO PRN (13:34)
[2020-08-21] MEDS ORDERED: Potassium Chloride 10 MEQ Tab.ER PO SCH (14:00)
[2020-08-21] MEDS: amLODIPine 5 MG Tab PO SCH (14:23)
[2020-08-21] MEDS: Losartan 100 MG Tab **PTOM PO SCH (14:26)
[2020-08-21] MEDS: Hydrochlorothiazide 25 MG Tab **PTOM PO SCH (14:27)
[2020-08-21] MEDS: Pravastatin 40 MG **PTOM PO SCH (14:28)
--- NOTE | 2020-08-21 15:13 | CT ---
PROCEDURE INFORMATION: Exam: CT Abdomen And Pelvis With Contrast Exam date and time: 08/21/2020 10:30 AM Age: 80 years old Clinical indication: Abdominal pain; Additional info: Prior reports sent in todays images TECHNIQUE: Imaging protocol: Computed tomography of the abdomen and pelvis with intravenous contrast. Contrast material: ISOVUE 370; Contrast volume: 125 ml; Contrast route: INTRAVENOUS (IV); Other contrast: Oral, gastrografin, 30; COMPARISON: CT Chest Abdomen Pelvis w Cont 05/11/2017 7:09 PM FINDINGS: Lungs: Minimal dependent atelectasis. Liver: Normal. No mass. Gallbladder and bile ducts: Normal. No calcified stones. No ductal dilation. Pancreas: Normal. No ductal dilation. Spleen: Normal. No splenomegaly. Adrenal glands: Normal. No mass. Kidneys and ureters: Punctate calcifications within the kidneys bilaterally. No hydronephrosis. Hypodense lesions of the renal parenchyma, some consistent with cysts, others too small to definitely characterize but statistically likely to be additional cysts. 1.9 cm complex cyst at the lower pole of the right kidney but unchanged in size since previous exam over 3 years ago. Stomach and bowel: Mural thickening involving the distal half of the transverse colon and proximal ascending colon worrisome for segmental colitis. Evidence of previous small bowel surgery. Mild circumferential thickening of the rectum. Appendix: No evidence of appendicitis. Intraperitoneal space: There is an elevated right hemidiaphragm present on the current examination. Vasculature: Unremarkable. No abdominal aortic aneurysm. Lymph nodes: Unremarkable. No enlarged lymph nodes. Urinary bladder: Unremarkable as visualized. Reproductive: There are multiple hyperdense radiation seeds within the prostate parenchyma. Bones/joints: There is multilevel degenerative disc disease. 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 Soft tissues: Unremarkable. IMPRESSION: 1. 1.9 cm complex cyst at the lower pole of the right kidney but unchanged in size since previous exam over 3 years ago. 2. Mural thickening involving the distal half of the transverse colon and proximal ascending colon worrisome for segmental colitis. 3. 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 4. Mild circumferential thickening of the rectum. Thank you for allowing us to participate in the care of your patient. Dictated and Authenticated by: Abram Bernard MD 08/21/2020 12:25 PM Central Time ([place] & [place]) [facility]
--- NOTE | 2020-08-21 15:22 | CR ---
PROCEDURE INFORMATION: Exam: XR Chest, 1 View Exam date and time: 08/21/2020 8:20 AM Age: 80 years old Clinical indication: Chest pain TECHNIQUE: Imaging protocol: XR of the chest Views: 1 view. COMPARISON: CT Chest wo Cont 08/20/2020 7:44 AM FINDINGS: Tubes, catheters and devices: An infusion port is present. Lungs: Unremarkable. No consolidation. Pleural space: Unremarkable. No pleural effusion. No pneumothorax. Heart/Mediastinum: Unremarkable. No cardiomegaly. Bones/joints: Widespread blastic osseous metastatic disease. IMPRESSION: 1. Widespread blastic osseous metastatic disease. 2. No acute pulmonary findings Thank you for allowing us to participate in the care of your patient. Dictated and Authenticated by: Abram Bernard MD 08/21/2020 9:53 AM Central Time ([place] & [place]) [facility]
--- NOTE | 2020-08-21 15:39 | CT ---
PROCEDURE INFORMATION: Exam: CT Chest With Contrast Exam date and time: 08/21/2020 10:30 AM Age: 80 years old Clinical indication: Patient HX: Chest pain ? pe; Additional info: Prior reports sent in todays images TECHNIQUE: Imaging protocol: Computed tomography of the chest with intravenous contrast. 3D rendering (Not supervised by radiologist): MIP and/or 3D reconstructed images were created by the technologist. Contrast material: ISOVUE 370; Contrast volume: 125 ml; Contrast route: INTRAVENOUS (IV); Other contrast: Oral; COMPARISON: 1. CT Chest wo Cont 08/20/2020 7:[address] - Chest Abdomen Pelvis w Cont 05/11/2017 7:09:51 PM FINDINGS: Tubes, catheters and devices: An infusion port is present. Lungs: There are mild paraseptal emphysematous changes Bilateral dependent atelectasis. Calcified granuloma within the right upper lobe Pleural space: Unremarkable. No pneumothorax. No pleural effusion. Heart: Moderate coronary artery calcification. Normal heart size.There is no flattening of the interventricular septum, paradoxical interventricular septum bowing, or right ventricular enlargement to suggest right ventricular strain. Mediastinal space: Circumferential thickening of the distal esophagus consistent with esophagitis or reflux. Pulmonary arteries: No evidence of pulmonary emboli. Aorta: Unremarkable. No aortic aneurysm. Lymph nodes: Unremarkable. No enlarged lymph nodes. Bones/joints: Extensive blastic osseous metastatic disease has progressed since April 2017. Soft tissues: Unremarkable. Other findings: . IMPRESSION: 1. Extensive blastic osseous metastatic disease has progressed since April 2017. 2. No evidence of pulmonary emboli. Thank you for allowing us to participate in the care of your patient. Dictated and Authenticated by: Abram Bernard MD 08/21/2020 12:35 PM Central Time ([place] & [place]) [facility]
--- NOTE | 2020-08-21 16:25 | CT ---
"PROCEDURE INFORMATION: Exam: CT Cervical Spine Without Contrast Exam date and time: 08/20/2020 7:44 AM Age: 80 years old Clinical indication: Injury or trauma; Fall; Blunt trauma; Patient HX: Syncopal event this morning at home. Fell to tiled floor, pain at base of left side neck adjacent to c7 vertebra. Transient loc, on xarelto RX TECHNIQUE: Imaging protocol: Computed tomography images of the cervical spine without contrast. COMPARISON: No relevant prior studies available. FINDINGS: Images are degraded by patient motion especially in the lower cervical. Bones/joints: No acute fracture. Normal alignment. Multiple sclerotic metastases are identified throughout the vertebral bodies, visualized scapulae and ribs. Discs/Spinal canal/Neural foramina: Narrowing of all the cervical interspaces with associated endplate osteophyte formation. Relative sparing of C2-C3. Mild diffuse facet arthropathy. No significant disc protrusion. No severe spinal canal stenosis. No significant neural foraminal narrowing. Soft tissues: Diffuse vascular calcifications. Lungs: Lung apices are normal. IMPRESSION: 1. No acute findings. 2. Diffuse sclerotic skeletal metastases. 3. Degenerative arthritis in the cervical spine. Thank you for allowing us to participate in the care of your patient. Dictated and Authenticated by: Angelika Iyer MD OLHEISER, DAVID | Final Radiology Report CONFIDENTIALITY STATEMENT This report is intended only for use by the referring physician, and only in accordance with law. If you received this in error, call [phone]. Page 2 of 2 08/20/2020 10:42 AM Central Time ([place] & [place]) [facility]"
--- NOTE | 2020-08-21 16:25 | CT ---
"PROCEDURE INFORMATION: Exam: CT Chest Without Contrast Exam date and time: 08/20/2020 7:44 AM Age: 80 years old Clinical indication: Injury or trauma; Fall; Blunt trauma (contusions or hematomas); Injury date: 08/20/2020; Patient HX: Syncopal event this morning at home. Fell to tiled floor, pain at base of left side neck adjacent to c7 vertebra. Transient loc, on xarelto RX TECHNIQUE: Imaging protocol: Computed tomography of the chest without contrast. 3D rendering (Not supervised by radiologist): MIP and/or 3D reconstructed images were created by the technologist. COMPARISON: CT Chest Abdomen Pelvis w Cont 05/11/2017 7:09 PM FINDINGS: Tubes, catheters and devices: Indwelling left central venous catheter with tip in SVC. Lungs: Mild changes of emphysema with scarring in the lung apices right worse than. Calcified granuloma right middle lobe. Pleural space: Unremarkable. No pneumothorax. No pleural effusion. Heart: Vascular calcifications including coronary artery calcifications. Aorta: Unremarkable. No aortic aneurysm. Lymph nodes: Unremarkable. No enlarged lymph nodes. 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 No fracture identified. 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 Soft tissues: Unremarkable. IMPRESSION: 1. No acute findings. 2. 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 3. Mild changes of emphysema and scarring in the apices. SELINA LEAL | Final Radiology Report CONFIDENTIALITY STATEMENT This report is intended only for use by the referring physician, and only in accordance with law. If you received this in error, call [phone]. Page 2 of 2 Thank you for allowing us to participate in the care of your patient. Dictated and Authenticated by: Angelika Iyer MD 08/20/2020 10:52 AM Central Time ([place] & [place]) JACLYN"
--- NOTE | 2020-08-21 16:26 | CT ---
PROCEDURE INFORMATION: Exam: CT Head Without Contrast Exam date and time: 08/20/2020 7:44 AM Age: 80 years old Clinical indication: Injury or trauma; Fall; Concussion/head injury; Consciousness not specified; Injury date: 08/20/2020; Injury details: Syncopal event this morning at home. Fell to tiled floor, pain at base of left side neck adjacent to c7 vertebra. Transient loc, on xarelto RX TECHNIQUE: Imaging protocol: Computed tomography of the head without contrast. COMPARISON: No relevant prior studies available. FINDINGS: Images are slightly degraded by patient motion. Brain: Normal. No hemorrhage. Unremarkable white matter. No mass effect. Cerebral ventricles: No ventriculomegaly. Bones/joints: Unremarkable. No acute fracture. Paranasal sinuses: Visualized sinuses are unremarkable. No fluid levels. Mastoid air cells: Visualized mastoid air cells are well aerated. Soft tissues: Unremarkable. IMPRESSION: No acute intracranial abnormality. Thank you for allowing us to participate in the care of your patient. Dictated and Authenticated by: Angelika Iyer MD 08/20/2020 10:37 AM Central Time ([place] & [place]) [facility]ILITY[facility]iana
[2020-08-21] MEDS: HYDROmorphone 0.5 MG/0.5 ML Syringe IVPUSH PRN (18:51)
[2020-08-21] MEDS: predniSONE 5 MG Tab **PTOM PO SCH (18:56)
[2020-08-21] MEDS ORDERED: PRAMIPEXOLE 0.25 MG PO SCH (21:00)
[2020-08-21] MEDS: Apixaban 5 MG Tab **PTOM PO SCH (21:32)
[2020-08-21] MEDS ORDERED: HYDROmorphone 0.5 MG/0.5 ML Syringe IVPUSH ONE (21:41)
[2020-08-21] MEDS ORDERED: HYDROmorphone 0.5 MG/0.5 ML Syringe IVPUSH PRN (21:43)
[2020-08-22] MEDS ORDERED: Pantoprazole 40 MG Tab.CR **PTOM PO SCH (09:00)
[2020-08-22 09:01] VITALS: BP 123/75; PULSE 65
[2020-08-22] MEDS: Losartan 100 MG Tab **PTOM PO SCH (09:15)
[2020-08-22] MEDS: predniSONE 5 MG Tab **PTOM PO SCH (09:15)
[2020-08-22] MEDS: Apixaban 5 MG Tab **PTOM PO SCH (09:15)
[2020-08-22] MEDS: Pravastatin 40 MG **PTOM PO SCH (09:16)
[2020-08-22] MEDS: Hydrochlorothiazide 25 MG Tab **PTOM PO SCH (09:16)
[2020-08-22] MEDS: amLODIPine 5 MG Tab PO SCH (09:16)
== END 2020-08-22 09:55 | disposition home or self-care (01) ==
LOC: SUPCPDRO 06:49 → JD.ED 06:49 → JD.MS 10:18
PROVIDERS: ADMIT Emergency Medicine; ATTEND Family Medicine
DX: R11.2 Nausea with vomiting, unspecified (principal); T45.1X5A Adverse effect of antineoplastic and immunosuppressive drugs, initial encounter; R19.7 Diarrhea, unspecified; C61 Malignant neoplasm of prostate; C79.52 Secondary malignant neoplasm of bone marrow; R55 Syncope and collapse; K21.9 Gastro-esophageal reflux disease without esophagitis; Z87.891 Personal history of nicotine dependence; Z88.8 Allergy status to other drugs, medicaments and biological substances; Z79.899 Other long term (current) drug therapy; Z20.828 Contact with and (suspected) exposure to other viral communicable diseases
CPT/HCPCS: 36415; 70450; 71045; 71250; 71275; 72125; 74177; 80053; 81001; 83605; 83690; 83735; 83880; 84100; 84484; 85025; 85610; 85652; 85730; 86140; 87040; 93005; 96374; 96375; 96376; 97116; 97162; 97165; 97535; 99285; A9270; G0378; J1170; J2765; J3480; J7030; J7042; J7120; J7512; Q9967; U0002